=== PATIENT | male | born 1955 | race Caucasian/White ===

== ENCOUNTER 2024-01-02 14:50 | Outpatient (AMB) | payer MEDICARE, SELFPAY ==
--- NOTE | 2024-01-02 14:52 | A.OFFPC_ITS ---
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 Pt states he is feeling well. Pt states his last appt was in January 2023 with his prior doctor. Pt states he was told in January 2023 that he had an abdominal hernia. Pt states it is not painful or hasn't gotten any bigger since last year. Allergies No Known Allergies Allergy (Verified 01/02/24 15:07) Tobacco use date assessed: 01/02/24 Dental Screening Dental Screen Date: 01/02/24 Did you have a dental visit in the last 12 months?: Yes Did you have a dental problem in the last 6 months where you did not have access to dental care?: No Was dental information given to patient?: Patient has dentist HPI PERSONAL INJURY LAW SPECIALIST-discuss general health HPI Details New patient Prior PCP:? Dr Lombardo Last office visit/CPE: 02/10 Acute issue(s): Abdominal?hernia PMHx: ?Hypertension, hyperlipidemia, obstructive?sleep?apnea, vitamin- D?deficiency, h/o anxiety SurgHx:L hip replacement, b/L Carpal tunnel FHx: Mom: Heart valve replacement, COPD. Dad: Dementia. SocHx: Quit cigs in 1999, EtOH: Social 1-2 dr a week. No drugs. [facility] Medical History (Updated 01/02/24 @ 15:32 by Mat Walters) High cholesterol Hypertension Sinusitis Surgical History (Updated 01/02/24 @ 15:23 by Alee Dickens MA) History of bilateral carpal tunnel release (~12/2018) History of left hip replacement (~04/2016) Hx of colonoscopy (~03/2023) Family History (Updated 01/02/24 @ 15:20 by Alee Dickens MA) Father Hypertension High cholesterol Social History Household Members: Spouse Housing: House Patient Tobacco Use Status: Former Tobacco user e-Cigarette/Vaping Use: Never Used Current occupational status: retired Cognitive needs: No Hearing needs: Yes (left hearing aid) Vision needs: Yes Questionnaire PHQ-9 Over the last 2 weeks, how often have you been bothered by any of the following problems? 1. Little interest or pleasure in doing things: not at all 2. Feeling down, depressed, or hopeless: not at all 3. Trouble falling or staying asleep, or sleeping too much: not at all 4. Feeling tired or having little energy: not at all 5. Poor appetite or overeating: not at all 6. Feeling bad about yourself - or that you are a failure or have let yourself or your family down: not at all 7. Trouble concentrating on things, such as reading the newspaper or watching television: not at all 8. Moving or speaking so slowly that other people could have noticed. Or the opposite - being so fidgety or restless that you have been moving around a lot more than usual: not at all 9. Thoughts that you would be better off or of hurting yourself in some way: not at all Total score: 0 Depression Screening Interpretation: Negative Depression Screening Done: Yes 43111 - PHQ-9 Billing: Yes Source: Developed by Drs. Jarrell Nichols, Aleah Aleman, Laen Maharaj and colleagues, with an educational yin from [employer]. Thrive Questionnaire Date Thrive assessed: 01/02/24 I am a: Patient What is your living situation today?: I have a steady place to live Within the past 12 months, did the food you bought not last and you didn't have the money to get more?: Never true Within the past 12 months, did you worry whether your food would run out before you got money to buy more?: Never true Do you have trouble paying for medicines?: No Do you have trouble getting transportation to medical appointments?: No Do you have trouble paying your heating and electricity bill?: No Do you have trouble taking care of your child, family member or friend?: No Do you have trouble with day-to-day activities such as bathing, preparing meals, shopping, managing finances, etc.?: No Are you currently unemployed and looking for a job?: No Are you interested in more education?: No THRIVE Score: 0 AUDIT C Alcohol Use Questionnaire (AUDIT-C) 1. How often do you have a drink containing alcohol?: Monthly or less 2. How many drinks containing alcohol do you have on a typical day when you are drinking?: 3 or 4 3. How often do you have six or more drinks on one occasion?: Never Total Score: 2 ALMA DELIA-7 AMB Questionnaire ALMA DELIA-7 Date ALMA DELIA - 7 assessed: 01/02/24 Feeling nervous, anxious, or on edge: 0 = Not at all Not being able to stop or control worryin = Not at all Worrying too much about different things: 0 = Not at all Trouble relaxin = Not at all Being so restless that it is hard to sit still: 0 = Not at all Becoming easily annoyed or irritable: 0 = Not at all Feeling afraid as if something awful might happen: 0 = Not at all Total ALMA DELIA-7 score (0-4 normal; 5-9 mild; 10-14 moderate; 15-21 severe): 0 Source: Developed by Drs. Jarrell Nichols, Aleah Aleman, Lane Maharaj and colleagues, with an educational yin from [employer]. ALMA DELIA-7 Assessment Billing ALMA DELIA-7 Assessment Tool: ALMA DELIA-7 Assessment 04424 Review of Systems Const Denies chills, Denies fatigue, Denies fever(s), Denies headache(s) and Denies weakness ENT Denies dizziness and Denies headache(s) Card Denies chest pain, Denies lightheadedness, Denies dyspnea and Denies other (Palpitations) Resp Denies cough, Denies dyspnea, Denies wheezing and Denies other ( shortness of breath) Musc Denies numbness and Denies tingling Neuro Denies dizziness, Denies headache(s), Denies numbness, Denies tingling, Denies paresthesias and Denies weakness Psych Denies anxiety and Denies depression Endo Denies fatigue Aller/Immun Denies wheezing Physical exam (Primary Care) Vital Signs: Last Vital Signs Pulse 66 01/02/24 15:05 BP 136/78 01/02/24 15:05 Pulse Ox 98 01/02/24 15:05 Oxygen Delivery Method Room Air 01/02/24 15:05 BMI result Body Mass Index 37.4 Tobacco/Smoking Status: Tobacco use Status Tobacco use date assessed 01/02/24 01/02/24 15:18 Patient Tobacco Use Status Former Tobacco user 03/14/24 15:20 e-Cigarette/Vaping Use Never Used 01/02/24 15:20 PHQ-9: PHQ-9 Score PHQ-9: Total score 0 01/02/24 15:19 Depression Screening Interpretation: Negative Thrive Assessment: Date of Thrive Assessment Date Thrive assessed 01/02/24 01/02/24 15:18 Const General: no acute distress and well developed Nutritional Appearance: well nourished Orientation/consciousness: patient oriented x3 HENMT Head: Yes normocephalic and Yes atraumatic Eyes General: appearance normal, both eyes and all related structures Pupils: Equal, round and reactive pupils present EOM: EOMs intact bilaterally Resp Effort & Inspection: normal respiratory effort Auscultation: clear to auscultation bilaterally Cardio Rate: regular rate Rhythm: regular rhythm Heart sounds: S1 normal heart sound present, S2 normal heart sound present, no gallops, no murmurs and no rubs Neuro General: patient oriented x3 and gait normal Cranial nerves: Yes Equal, round and reactive pupils present Psych Affect: normal affect Assessment and Plan Assessment & Plan (1) Abdominal hernia: Code(s): K46.9 - Unspecified abdominal hernia without obstruction or gangrene Plan: Small?0.5?cm?spontaneously?reducing?umbilical?hernia?fi lled?by?impulse?during?cough/Valsalva Advised?weight?loss He?declines?a?consult?with?surgery?at?this?time He?will?let?me?know?if?worsens (2) Hypertension: Code(s): I10 - Essential (primary) hypertension Plan: Blood?pressure?is?controlled.??Goal?is?less?than?140/90 Continue?current?medication?regimen Encouraged?diet?low?in?salt/sodium Encouraged?exercise?and?weight?loss (3) AMINAH (obstructive sleep apnea): Code(s): G47.33 - Obstructive sleep apnea (adult) (pediatric) Plan: Continue?CPAP Encouraged?weight?loss (4) Low vitamin D level: Code(s): R79.89 - Other specified abnormal findings of blood chemistry Plan: Continue?vitamin-D?and?check?vitamin-D?level (5) Laboratory exam ordered as part of routine general medical examination: Code(s): Z00.00 - Encounter for general adult medical examination without abnormal findings Plan: Check?labs Orders: Orders Comprehensive [place]. Panel Fast Today Z00.00 - Encounter for general adult medical examination without abnormal findings Lipid Panel Today Z00.00 - Encounter for general adult medical examination without abnormal findings Prostate Specific Antigen Scr Today Z12.5 - Encounter for screening for malignant neoplasm of prostate UA and rflx microscopic Today Z00.00 - Encounter for general adult medical examination without abnormal findings Complete Blood Count Auto Diff Today Z00.00 - Encounter for general adult medical examination without abnormal findings Microalbumin, Random (w Creat) Today I10 - Essential (primary) hypertension TSH reflex Free T4 Today Z00.00 - Encounter for general adult medical examination without abnormal findings Vitamin D 25-OH Total Today E55.9 - Vitamin D deficiency, unspecified Medications: New amlodipine 10 mg PO DAILY 90 tabs 3RF 90 days hydrochlorothiazide 25 mg PO DAILY 90 tabs 3RF 90 days lisinopril 40 mg PO DAILY 90 tabs 3RF 90 days lovastatin 20 mg PO DAILY 90 tabs 3RF 90 days carvedilol 12.5 mg PO BID 180 tabs 3RF 90 days cholecalciferol (vitamin D3) 50 mcg PO DAILY 90 caps 3RF 90 days Coding Level of Care Code New Pt Level 3 (77547) Diagnoses Abdominal hernia K46.9 Hypertension I10 AMINAH (obstructive sleep apnea) G47.33 Low vitamin D level R79.89 Laboratory exam ordered as part of routine general medical examination Z00.00 Additional Codes ALMA DELIA-7 Assessment Billing - ALMA DELIA-7 Assessment Tool: ALMA DELIA-7 Assessment 80409 ([id number])
[2024-01-02 15:05] VITALS: BP 136/78; PULSE 66; O2SAT 98; BMI 37.4
== END 2024-01-02 15:57 | disposition home or self-care (01) ==
PROVIDERS: PCP Family Medicine; Visit Provider Family Medicine
DX: K46.9 Unspecified abdominal hernia without obstruction or gangrene (principal); I10 Essential (primary) hypertension; G47.33 Obstructive sleep apnea (adult) (pediatric); R79.89 Other specified abnormal findings of blood chemistry; Z00.00 Encounter for general adult medical examination without abnormal findings
CPT/HCPCS: 99203

== ENCOUNTER 2024-06-10 08:05 | Outpatient (REF) | payer MEDICARE, SELFPAY ==
[2024-06-10 10:34] LABS: Appearance Urine Clear; Color Urine Yellow; Glucose Urine UA Negative (Negative); Leukocyte Esterase Urine Negative (Negative); Nitrite Urine Negative (Negative); PH 5.5 (5.0-9.0); Specific Gravity - Urine 1.015 (1.005-1.025); Urine Blood Negative (Negative); Urine Ketones Negative (Negative); Urine Protein Negative (Neg-Trace)
[2024-06-10 11:29] LABS: MANUAL DIFF FLAG NO
[2024-06-10 11:35] LABS: Basophils Absolute Auto 0.1 X10*3/uL (0.0-0.2); Basophils Percent Auto 1.1 % (0-2); Eosinophils Absolute Auto 0.4 X10*3/uL (0.0-0.4); Eosinophils Percent Auto 4.8 % (0-4); Hematocrit 41.6 % (42.0-52.0); Imm Gran Abs Auto 0.03 X10*3/uL (0.00-0.03); Imm Gran Pct Auto 0.3 % (0.0-0.4); Lymphocytes Absolute Auto 2.5 X10*3/uL (1.2-4.9); Lymphocytes Percent Auto 28.3 % (20-40); Mean Corpuscular HGB Conc 33.7 g/dl (31.0-36.0); Mean Platelet Volume 9.5 fL (9.4-12.4); Monocytes Absolute Auto 0.7 X10*3/uL (0.1-1.2); Monocytes Percent Auto 7.8 % (2-11); Neutrophils Absolute Auto 5.2 x10*3/uL (2.0-8.3); Neutrophils Percent Auto 57.7 % (45-73); Platelet Count 280 X10*3/uL (160-400); Red Blood Count 4.52 X10*6/uL (4.60-5.80); Red Cell Distribution Width 12.6 % (11.0-16.0)
[2024-06-10 12:22] LABS: Creatinine Urine 111.27 mg/dL; Microalbum/Creatinine Ratio Ur 22.4 ug/mg cr (<30)
[2024-06-10 12:36] LABS: Prostate Specific Antigen Scr 0.59 ng/mL (<0.05-4.0)
[2024-06-10 12:37] LABS: Alanine Aminotransferase 32 U/L (0-40); Albumin Level 4.2 g/dL (3.5-5.0); Alkaline Phosphatase 50 U/L (39-117); Anion Gap 11 (12-20); Aspartate Amino Transferase 21 U/L (5-37); Bilirubin Total 0.2 mg/dL (0.0-1.0); Blood Urea Nitrogen 17 mg/dL (9-16); Carbon Dioxide 30 mmol/L (22-29); Chloride 105 mmol/L (96-108); Cholesterol 165 mg/dL (<200); Estimated Glomerular Filt Rate 50; Glucose Fasting 116 mg/dL (60-99); HDL Cholesterol 55 mg/dL (>40); LDL Cholesterol Calculated 95 mg/dL (<100); Potassium 4.9 mmol/L (3.3-5.1); Sodium 141 mmol/L (135-145); Triglycerides 78 mg/dL (<150)
[2024-06-10 12:58] LABS: TSH reflex Free T4 1.04 uIU/mL (0.32-4.0); Vitamin D 25-OH Total 71.8 ng/mL (>30)
== END 2024-06-10 08:06 | disposition home or self-care (01) ==
LOC: HO.HMGCLDS 08:05
PROVIDERS: PCP Family Medicine; Visit Provider Family Medicine
DX: Z00.00 Encounter for general adult medical examination without abnormal findings (principal); Z12.5 Encounter for screening for malignant neoplasm of prostate; I10 Essential (primary) hypertension; E55.9 Vitamin D deficiency, unspecified
CPT/HCPCS: 36415; 80053; 80061; 81003; 82043; 82306; 82570; 84153; 84443; 85025

== ENCOUNTER 2024-06-30 13:50 | Outpatient (AMB) | payer MEDICARE, SELFPAY ==
[2024-06-30 14:03] VITALS: BP 136/68; PULSE 65; RESP 16; O2SAT 99; BMI 36.7
--- NOTE | 2024-06-30 14:03 | A.OFFPC_ITS ---
Vital Signs 06/30/24 14:03 Height 5 ft 9 in Weight 248 lb 8 oz BMI 36.7 BP 136/68 Blood Pressure Location Rt brachial Position Sitting Respiration 16 Pulse 65 Pulse Source Pulse Oximeter Pulse Oximetry (%) 99 Oxygen Delivery Method Room Air Intake Visit Reasons: Extended exam with f/u labs and health maintenance Intake Note: Follow up. Lab results. Medical Interpreter Required: No Allergies No Known Allergies Allergy (Verified 06/30/24 14:04) Medication List - Last Reconciled 06/30/24 by Hernan Remy MD amlodipine 10 mg PO DAILY 90 days carvedilol 12.5 mg PO BID 90 days cholecalciferol (vitamin D3) 50 mcg PO DAILY 90 days CPAP (CPAP Machine/Device) As directed hydrochlorothiazide 25 mg PO DAILY 90 days lisinopril 40 mg PO DAILY 90 days lovastatin 20 mg PO DAILY 90 days Tobacco use date assessed: 01/02/24 Fall risk assessment: No Falls in past year Last assessed Fall Risk: 06/30/24 Dental Screening Dental Screen Date: 01/02/24 HPI Extended exam with f/u labs and health maintenance HPI Details 68 y/o male presents for an extended exa m with f/u labs and health maintenance. Labs drawn 06/10/24. Reviewed labs with pt. RBC, Hct mildly low. Denies any nose bleeds/blood in stool. Creatinine level 1.42. Elevated fasting glucose of 116. Triglycerides 78. TC 165. LDL 95. HDL 55. PSA 0.59. Vitamin D 71.8. He is on lovastatin 20mg daily. A1c today 06/30/24 is 5.6%. Reports hearing loss L ear. Pt reports he tries to eat a healthy diet. Walks for exercise and keeps himself active. Has complaints of intermittent knee pain. Has complaints of lump on his lip. [facility] Medical History (Updated 06/30/24 @ 14:37 by Mat Walters) High cholesterol Hypertension Sinusitis Surgical History (Updated 01/02/24 @ 15:23 by Alee Dickens CMA) History of bilateral carpal tunnel release (~12/2018) History of left hip replacement (~04/2016) Hx of colonoscopy (~03/2023) Family History (Updated 01/02/24 @ 15:20 by Alee Dickens CMA) Father Hypertension High cholesterol Social History (Updated 01/02/24 @ 15:21 by Alee Dickens ORAL COMMUNICATION INSTRUCTOR) Household Members: Spouse Housing: House Patient Tobacco Use Status: Former Tobacco user e-Cigarette/Vaping Use: Never Used Current occupational status: retired Cognitive needs: No Hearing needs: Yes (left hearing aid) Vision needs: Yes Questionnaire Thrive Questionnaire Date Thrive assessed: 01/02/24 ALMA DELIA-7 AMB Questionnaire ALMA DELIA-7 Date ALMA DELIA - 7 assessed: 01/02/24 Source: Developed by Drs. Jarrell Nichols, Aleah Aleman, Lane Maharaj and colleagues, with an educational yin from [employer]. Review of Systems Const Denies chills, Denies fatigue, Denies fever(s), Denies headache(s) and Denies weakness Eyes Denies change in vision ENT Denies dizziness, Denies headache(s), Denies hearing loss, Denies nasal congestion, Denies sinus pain, Denies sinus pressure and Denies sore throat Card Denies chest pain, Denies lightheadedness, Denies dyspnea and Denies other (palpitations) Resp Denies cough, Denies dyspnea and Denies wheezing GI Denies abdominal pain, Denies melena, Denies hematochezia, Denies change in bowel habits, Denies dyspepsia and Denies nausea Denies hematuria and Denies dysuria Musc Details: Knee pain Denies abnormal gait, Denies myalgias, Denies arthralgias, Denies numbness and Denies tingling Skin/Breast Denies rash, Denies unusual bruising and Denies wounds Neuro Denies abnormal gait, Denies dizziness, Denies headache(s), Denies memory loss, Denies numbness, Denies Sensory deficit (Neuro), Denies tingling and Denies weakness Psych Denies anxiety, Denies depression and Denies memory loss Endo Denies cold intolerance, Denies fatigue, Denies heat intolerance, Denies polydipsia and Denies polyuria Braydon/Lymph Denies easy bleeding and Denies easy bruising Aller/Immun Denies wheezing Physical exam (Primary Care) Vital Signs: Last Vital Signs Pulse 65 06/30/24 14:03 Resp 16 06/30/24 14:03 BP 136/68 06/30/24 14:03 Pulse Ox 99 06/30/24 14:03 Oxygen Delivery Method Room Air 06/30/24 14:03 BMI result Body Mass Index 36.7 Tobacco/Smoking Status: Tobacco use Status Tobacco use date assessed 01/02/24 06/30/24 14:04 Patient Tobacco Use Status Former Tobacco user 06/30/24 14:04 e-Cigarette/Vaping Use Never Used 06/30/24 14:04 Thrive Assessment: Date of Thrive Assessment Date Thrive assessed 01/02/24 06/30/24 14:04 Const General: no acute distress, well developed, alert and awake Nutritional Appearance: obese Orientation/consciousness: patient oriented x3 HENMT Head: Yes normocephalic and Yes atraumatic Ears: hearing grossly normal bilaterally and TM's normal bilaterally General nose exam: Normal external nose present and Normal nares present Mouth: Normal oral and palatal mucosa present and moist mucous membranes Teeth and gingiva: dentition normal Throat: Yes posterior oropharynx normal Eyes General: appearance normal, both eyes and all related structures Pupils: Equal, round and reactive pupils present and Pupil accommodation reflex normal EOM: EOMs intact bilaterally Neck Neck: Yes normal visual inspection, Yes no lymphadenopathy and Yes trachea midline Thyroid: Thyroid normal Carotids: no bruits Lymphatic: no lymphadenopathy noted Chest Chest palpation & inspection: normal inspection of the chest Resp Effort & Inspection: normal respiratory effort Auscultation: clear to auscultation bilaterally Cardio Rate: regular rate Rhythm: regular rhythm Heart sounds: S1 normal heart sound present, S2 normal heart sound present, no gallops, no murmurs and no rubs Bruits: no abdominal aortic bruits and no carotid bruits GI Palpation (GI): No Abdominal aortic bruit present, Soft to palpation, nontender, No hepatosplenomegaly present and No Rebound tenderness present Auscultation: normal bowel sounds General: Yes no CVA tenderness Back/Spine/Pelvis Back: no CVA tenderness Cervical Spine: cervical ROM normal and No Cervical spine tenderness Thoracic/Lumbar Spine: thoraco-lumbar ROM normal, No pain with thoraco-lumbar ROM, No thoracic spinal tenderness and No lumbar spinal tenderness Skin Lesions: no lesions Rashes: no rashes Trauma: no lacerations or abrasions Wounds: no wounds Nails: normal Neuro General: patient oriented x3 Cranial nerves: Yes Equal, round and reactive pupils present Cognition (Neuro): normal cognition Gait exam (Neuro): Normal gait present Motor exam (neuro): 5/5 motor strength present throughout Sensory Exam: No Sensory deficit (Neuro) Deep tendon reflexes (DTR's): Right patellar reflex intensity grade: 2+ and Left patellar reflex intensity grade: 2+ Extrem General: Yes normal to inspection and No edema Psych Appearance: grossly normal Affect: normal affect Attitude: cooperative Thought process: Normal thought process present Results AMB Hemoglobin A1c AMB Hemoglobin A1c 5.6 % Last Edit by Simin Yoder CMA on 06/30/24 14:32 Assessment and Plan Assessment & Plan (1) High cholesterol: Code(s): E78.00 - Pure hypercholesterolemia, unspecified Plan: Lipids?are?well?controlled?on?pravastatin Continue?current?medication (2) Hypertension: Code(s): I10 - Essential (primary) hypertension Plan: Blood?pressure?is?controlled.??Goal?is?less?than?140/90 Continue?current?medications Creatinine?is?mildly?elevated - will?recheck?this?with?next?blood?draw .??If?worsening,?may?need?to?adjust?his?lisinopril?or?hydrochlorothiazide. (3) Mild anemia: Code(s): D64.9 - Anemia, unspecified Plan: Mild/borderline?anemia No?bleeding Will?recheck?with?next?blood?draw (4) Hearing loss: Code(s): H91.90 - Unspecified hearing loss, unspecified ear Plan: Stable Continue?hearing?aid?at?left?ear (5) Knee pain: Code(s): M25.569 - Pain in unspecified knee Plan: Pain?at?right?knee?and?likely?some?arthritis/tendinitis Check?x-ray We?can?follow-up?with?his?next?visit. If?not?improving?or?worsens,?we?discussed?physical?therapy?and?he?could?begin?th is. May?also?need?a?referral?to?Ortho (6) Elevated serum creatinine: Code(s): R79.89 - Other specified abnormal findings of blood chemistry Plan: Mildly?elevated?creatinine?level He ?is?on?lisinopril?and?hydrochlorothiazide?which?may?be?a?partial?underlying?caus e.??Also?has?elevated?fasting?blood?sugar. Encouraged?good?hydration Will?follow?and?if?this?is?worsening,?would?conside r?easing?up?on?hydrochlorothiazide. Blood?pressure?is?controlled?though?at?top?of?controlled?range?so?would?need?to? use?another?medication?in?place?of?hydrochlorothiazide. (7) Elevated fasting glucose: Code(s): R73.01 - Impaired fasting glucose Plan: A1c?5.6%?which?is?top?of?normal?range? and?he?does?have?elevated?fasting?blood?sugar We?discussed?insulin?resistance?and?I?advised?a?diet?lower?in?sugars?and?starche s?as?well?as?weight?loss Will?follow?and?discuss?at?next?visit (8) Screening for colon cancer: Code(s): Z12.11 - Encounter for screening for malignant neoplasm of colon Plan: Followed?by??Andrew. Patient?says?he?had?a?colonoscopy?about?2?years?ago?and?was?told?to?follow- up?in?about?5?years. Will?request?report (9) Screening for prostate cancer: Code(s): Z12.5 - Encounter for screening for malignant neoplasm of prostate Plan: PSA?is?within?normal?range Continue?annual?screening (10) Adult general medical exam: Code(s): Z00.00 - Encounter for general adult medical examination without abnormal findings Plan: 68-year-old?male?presents?for?an?extended?exam Encouraged?healthy?diet?with?active?lifestyle?and?plenty?of?exercise Orders: Orders XR knee RT 3V Today M25.569 - Pain in unspecified knee Comprehensive [place]. Panel Fast Today R79.89 - Other specified abnormal findings of blood chemistry, Z00.00 - Encounter for general adult medical examination without abnormal findings Complete Blood Count Auto Diff Today D64.9 - Anemia, unspecified, Z00.00 - Encounter for general adult medical examination without abnormal findings AMB Hemoglobin A1c Today R73.01 - Impaired fasting glucose Hemoglobin A1c Today R73.01 - Impaired fasting glucose Coding Level of Care Code Est Pt Level 4 (74669) Diagnoses High cholesterol E78.00 Hypertension I10 Mild anemia D64.9 Hearing loss H91.90 Knee pain M25.569 Elevated serum creatinine R79.89 Elevated fasting glucose R73.01 Screening for colon cancer Z12.11 Screening for prostate cancer Z12.5 Adult general medical exam Z00.00
== END 2024-06-30 14:52 | disposition home or self-care (01) ==
PROVIDERS: PCP Family Medicine; Visit Provider Family Medicine
DX: E78.00 Pure hypercholesterolemia, unspecified (principal); I10 Essential (primary) hypertension; D64.9 Anemia, unspecified; H91.90 Unspecified hearing loss, unspecified ear; M25.569 Pain in unspecified knee; R79.89 Other specified abnormal findings of blood chemistry; R73.01 Impaired fasting glucose; Z12.11 Encounter for screening for malignant neoplasm of colon; Z12.5 Encounter for screening for malignant neoplasm of prostate; Z00.00 Encounter for general adult medical examination without abnormal findings
CPT/HCPCS: 83036; 99214

== ENCOUNTER 2024-09-09 14:13 | Outpatient (REF) | payer MEDICARE, SELFPAY | END 2024-09-09 14:14 | disposition home or self-care (01) | LOC: HO.HMGCX 14:13 | PROVIDERS: PCP Family Medicine; Visit Provider Family Medicine | DX: M25.561 Pain in right knee (principal) | CPT/HCPCS: 73562 ==

== ENCOUNTER 2024-09-22 08:02 | Outpatient (REF) | payer MEDICARE, SELFPAY ==
[2024-09-22 11:27] LABS: MANUAL DIFF FLAG NO
[2024-09-22 11:32] LABS: Basophils Percent Auto 0.4 % (0-2); Eosinophils Absolute Auto 0.5 X10*3/uL (0.0-0.4); Eosinophils Percent Auto 5.8 % (0-4); Hematocrit 44.2 % (42.0-52.0); Hemoglobin 14.7 g/dl (14.0-18.0); Imm Gran Abs Auto 0.02 X10*3/uL (0.00-0.03); Imm Gran Pct Auto 0.2 % (0.0-0.4); Lymphocytes Absolute Auto 3.1 X10*3/uL (1.2-4.9); Lymphocytes Percent Auto 33.8 % (20-40); Mean Corpuscular HGB Conc 33.3 g/dl (31.0-36.0); Mean Corpuscular Hemoglobin 30.7 pg (27.0-33.0); Mean Corpuscular Volume 92.3 fL (80.0-98.0); Mean Platelet Volume 9.6 fL (9.4-12.4); Monocytes Absolute Auto 0.8 X10*3/uL (0.1-1.2); Monocytes Percent Auto 8.6 % (2-11); Neutrophils Absolute Auto 4.6 x10*3/uL (2.0-8.3); Neutrophils Percent Auto 51.2 % (45-73); Platelet Count 286 X10*3/uL (160-400); Red Blood Count 4.79 X10*6/uL (4.60-5.80); Red Cell Distribution Width 12.5 % (11.0-16.0)
[2024-09-22 11:46] LABS: Alanine Aminotransferase 30 U/L (0-40); Albumin Level 4.2 g/dL (3.5-5.0); Alkaline Phosphatase 48 U/L (39-117); Anion Gap 11 (12-20); Aspartate Amino Transferase 28 U/L (5-37); Bilirubin Total 0.4 mg/dL (0.0-1.0); Blood Urea Nitrogen 19 mg/dL (9-16); Calcium 9.7 mg/dL (8.4-10.2); Carbon Dioxide 29 mmol/L (22-29); Chloride 105 mmol/L (96-108); Estimated Glomerular Filt Rate 43; Glucose Fasting 120 mg/dL (60-99); Potassium 4.1 mmol/L (3.3-5.1); Sodium 141 mmol/L (135-145); Total Protein 6.9 g/dL (6.5-8.0)
[2024-09-22 12:04] LABS: Estimated Average Glucose 120 mg/dL; Hemoglobin A1C 161.2713 umol/L; Hemoglobin A1c % 5.8 % (<6.0); Total Hemoglobin (HGBA1C) 4005.7591 umol/L
== END 2024-09-22 08:03 | disposition home or self-care (01) ==
LOC: HO.HMGCLDS 08:02
PROVIDERS: PCP Family Medicine; Visit Provider Family Medicine
DX: Z00.00 Encounter for general adult medical examination without abnormal findings (principal); R73.01 Impaired fasting glucose; R79.89 Other specified abnormal findings of blood chemistry; D64.9 Anemia, unspecified
CPT/HCPCS: 36415; 80053; 83036; 85025

== ENCOUNTER 2024-09-29 08:40 | Outpatient (AMB) | payer MEDICARE, SELFPAY ==
--- NOTE | 2024-09-29 08:47 | A.OFFPC_ITS ---
Vital Signs 09/29/24 08:52 Height 5 ft 9 in Weight 243 lb 2 oz BMI 35.9 BP 150/60 H Blood Pressure Location Rt brachial Position Sitting Respiration 16 Pulse 61 Pulse Source Pulse Oximeter Temp 98.3 F Temp Source Oral Pulse Oximetry (%) 97 Oxygen Delivery Method Room Air Intake Visit Reasons: f/u elevated fasting glucose, labs Intake Note: f/u DM and lab review Allergies No Known Allergies Allergy (Verified 09/29/24 08:51) Tobacco use date assessed: 01/02/24 Dental Screening Dental Screen Date: 01/02/24 HPI f/u elevated fasting glucose, labs HPI Details 68 y/o male presents to f/u elevated fas ting blood sugars, creatinine levels, mild/borderline anemia. Also f/u hypertension. BP today 150/60, 61p. He is on lisinopril 40mg, HCTZ 25mg daily, amlodipine 10mg daily. He does not check his blood pressures at home. Labs drawn 09/22/24. Reviewed labs with pt. A1c 5.8%. Fasting glucose of 120. Borderline anemia resolved. Creatinine level worsened from 1.42 to 1.61. [facility] Medical History (Updated 09/29/24 @ 09:06 by Mat Walters) High cholesterol Hypertension Sinusitis Surgical History (Updated 01/02/24 @ 15:23 by Alee Dickens CMA) History of bilateral carpal tunnel release (~12/2018) History of left hip replacement (~04/2016) Hx of colonoscopy (~03/2023) Family History (Updated 01/02/24 @ 15:20 by Alee Dickens CMA) Father Hypertension High cholesterol Social History (Updated 01/02/24 @ 15:21 by Alee Dickens CMA) Household Members: Spouse Housing: House Patient Tobacco Use Status: Former Tobacco user e-Cigarette/Vaping Use: Never Used Current occupational status: retired Cognitive needs: No Hearing needs: Yes (left hearing aid) Vision needs: Yes Questionnaire PHQ-9 Over the last 2 weeks, how often have you been bothered by any of the following problems? 1. Little interest or pleasure in doing things: not at all 2. Feeling down, depressed, or hopeless: not at all 3. Trouble falling or staying asleep, or sleeping too much: not at all 4. Feeling tired or having little energy: not at all 5. Poor appetite or overeating: not at all 6. Feeling bad about yourself - or that you are a failure or have let yourself or your family down: not at all 7. Trouble concentrating on things, such as reading the newspaper or watching television: not at all 8. Moving or speaking so slowly that other people could have noticed. Or the opposite - being so fidgety or restless that you have been moving around a lot more than usual: not at all 9. Thoughts that you would be better off or of hurting yourself in some way: not at all Total score: 0 Source: Developed by Drs. Jarrell Nichols, Aleah Aleman, Lane Maharaj and colleagues, with an educational yin from [employer]. Thrive Questionnaire Date Thrive assessed: 01/02/24 I am a: Patient What is your living situation today?: I have a steady place to live Within the past 12 months, did the food you bought not last and you didn't have the money to get more?: Never true Within the past 12 months, did you worry whether your food would run out before you got money to buy more?: Never true Do you have trouble paying for medicines?: No Do you have trouble getting transportation to medical appointments?: No Do you have trouble paying your heating and electricity bill?: No Do you have trouble taking care of your child, family member or friend?: No Do you have trouble with day-to-day activities such as bathing, preparing meals, shopping, managing finances, etc.?: No Are you currently unemployed and looking for a job?: No Are you interested in more education?: No Please select the resources that you would like help with: None Currently or been in a relationship where the following occur: No concerns reported THRIVE Score: 0 AUDIT C Alcohol Use Questionnaire (AUDIT-C) 1. How often do you have a drink containing alcohol?: Monthly or less 2. How many drinks containing alcohol do you have on a typical day when you are drinking?: 1 or 2 3. How often do you have six or more drinks on one occasion?: Never Total Score: 1 ALMA DELIA-7 AMB Questionnaire ALMA DELIA-7 Date ALMA DELIA - 7 assessed: 01/02/24 Feeling nervous, anxious, or on edge: 0 = Not at all Not being able to stop or control worryin = Not at all Worrying too much about different things: 0 = Not at all Trouble relaxin = Not at all Being so restless that it is hard to sit still: 0 = Not at all Becoming easily annoyed or irritable: 0 = Not at all Feeling afraid as if something awful might happen: 0 = Not at all Total ALMA DELIA-7 score (0-4 normal; 5-9 mild; 10-14 moderate; 15-21 severe): 0 Source: Developed by Drs. Jarrell Nichols, Aleah Aleman, Lane Maharaj and colleagues, with an educational yin from [employer]. Review of Systems Const Denies chills, Denies fatigue, Denies fever(s), Denies headache(s) and Denies weakness ENT Denies dizziness and Denies headache(s) Card Denies dyspnea Resp Denies cough, Denies dyspnea, Denies wheezing and Denies other (shortness of breath) Musc Denies numbness and Denies tingling Neuro Denies dizziness, Denies headache(s), Denies numbness, Denies tingling and Denies weakness Psych Denies anxiety and Denies depression Endo Denies fatigue Aller/Immun Denies wheezing Physical exam (Primary Care) Vital Signs: Last Vital Signs Temp 98.3 F 09/29/24 08:52 Pulse 61 09/29/24 08:52 Resp 16 09/29/24 08:52 BP 150/60 H 09/29/24 08:52 Pulse Ox 97 09/29/24 08:52 Oxygen Delivery Method Room Air 09/29/24 08:52 BMI result Body Mass Index 35.9 Tobacco/Smoking Status: Tobacco use Status Tobacco use date assessed 01/02/24 09/29/24 08:47 Patient Tobacco Use Status Former Tobacco user 09/29/24 08:47 e-Cigarette/Vaping Use Never Used 09/29/24 08:47 PHQ-9: PHQ-9 Score PHQ-9: Total score 0 09/29/24 09:08 Thrive Assessment: Date of Thrive Assessment Date Thrive assessed 01/02/24 09/29/24 08:47 Currently or been in a relationship where the following occur: No concerns reported Const General: well developed; No acute distress Nutritional Appearance: well nourished Orientation/consciousness: patient oriented x3 [facility] Head: Yes normocephalic and Yes atraumatic Eyes General: appearance normal, both eyes and all related structures Pupils: Equal, round and reactive pupils present EOM: EOMs intact bilaterally Resp Effort & Inspection: normal respiratory effort Auscultation: clear to auscultation bilaterally Cardio Rate: regular rate Rhythm: regular rhythm Heart sounds: S1 normal heart sound present, S2 normal heart sound present, no gallops, no murmurs and no rubs Neuro General: patient oriented x3 and gait normal Cranial nerves: Yes Equal, round and reactive pupils present Psych Affect: normal affect Coding Level of Care Code Est Pt Level 4 (00772) Diagnoses Hypertension I10 Elevated serum creatinine R79.89 Mild anemia D64.9 Pre-diabetes R73.03 Knee pain M25.569 Assessment & Plan Assessment & Plan (1) Hypertension: Code(s): I10 - Essential (primary) hypertension Category: Medical Plan: Blood?pressure?is?too?high He?is?on?4?medications?for?hypertension. However,?creatinine?has?been?rising. Will?continue?carvedilol,?amlodipine?and?lisinopril?as?prescribed?for?now.??Will ?decrease?hydrochlorothiazide?from?25?mg?to?12.5?mg?daily?and Will?add?hydralazine?25?mg?t.i.d. Will?follow- up?in?2?weeks?and?adjust?his?medication.??Will?try?to?discontinue?hydrochlorothi azide?entirely?and?may?consider?decreasing?lisinopril?as?well. If?creatinine?level?continued?to?rise?will?refer ?to?Nephrology.??Patient?says?he?was?worked?up?by?Nephrology?about?a?year?ago?an d?at?that?time,?he?says?they?found?no?issues. (2) Elevated serum creatinine: Code(s): R79.89 - Other specified abnormal findings of blood chemistry Category: Medical Plan: As?above,?patient?was?worked?up?by?Nephrology?about?a?year?ago. Patient?says?no?underlying?cause?were?some?renal?insufficiency?was?found?and?he? was?told?lose?weight. I?suspect?his?hypertension?an d?elevated?blood?sugars?as?well?as,?possibly?lipids?may?be?contributing. However,?patient?is?not?tolerating?lisinopril?and?hydrochlorothiazide?at?the?dos es?he?is?on. Decreasing?hydrochlorothiazide?with?goal?eliminating?it?and?using?hydralazine. Encouraged?lifestyle?changes If?it?continues?to?worsen,?will?refer?back?to?Nephrology (3) Mild anemia: Code(s): D64.9 - Anemia, unspecified Category: Medical Plan: Resolved (4) Pre-diabetes: Code(s): R73.03 - Prediabetes Category: Medical Plan: Blood?sugar?is?elevated?and?A1c?has?risen?to?5.8%;?pre?diabetes Encouraged?a?diet?lower?in?sugars?and?starches.??Encouraged?weight?loss.??Encour aged?exercise Patient?is?having?difficulty?with?exercise?due?to?knee?pain-see?below (5) Knee pain: Code(s): M25.569 - Pain in unspecified knee Category: Medical Plan: Patient?had?an?x- ray?on?August??due?to?right?knee?pain.??This?has?not?been?read?yet. Asking?the?office?to?get?reading?expedited?and?we?will?follow- up?at?upcoming?visit. Medications: New hydralazine 25 mg PO TID 30 days 90 tabs 2RF Changed From hydrochlorothiazide 25 mg PO DAILY 90 days 90 tabs 3RF To hydrochlorothiazide 12.5 mg (1/2 x 25 mg) PO DAILY 90 days 45 tabs 3RF
[2024-09-29 08:52] VITALS: BP 150/60; PULSE 61; RESP 16; TEMP 36.8; O2SAT 97; BMI 35.9
--- OUTSIDE RECORDS SUMMARY | 2024-09-30 19:01 | XMS_ITS | Continuity of Care Document ---
Author Name [facility] Organization [facility] Care Team Providers Care Knife Machine Operator Name Role Phone [facility] Unavailable Unavailable Problems Combined list of problems from Department of Defense and Veterans [facility] facilities. It does not include entries that were removed or entered in error. 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 Immunization Series Date Given Administered By Site Reaction Lot Number CVX Code Drug 3Rd Grade Teacher Status Comments Source COVID-19 (Bit9), MRNA, LNP-S, PF, 30 MCG/0.3 ML DOSE 2 2020 208 complet ed PFR; [id number]; 1 [facility] [place] [facility] COVID-19 (Bit9), MRNA, LNP-S, PF, 30 MCG/0.3 ML DOSE 1 2020 208 complet ed PFR; [id number]; 1 [facility] Intern [place] [facility] Encounters Combined list of: 1) Encounters from Department of Veterans Affairs facilities going back up to thelast 18 months. 2) Encounters from the Department of Defense facilities going back up to 280 months. Location Location Details Encounter Type Encounter Number Reason For Visit Attending Provider ADM Date DC Date Status Disposition Source [facility] HEARING AID FITTING/CH ECKING [id number] Diagnos is: ICD-10- CM H90.A32 Mix cndct/s nrl hear loss,un i,l ear w rstrcd hear cntra side
SENIOR,AGUSTINA OLE L 08/13 [facility] [place] [facility] [place] [facility] CONFORMITY EVALUATION [id number] Diagnos is: ICD-10- CM Z46.1 Encount er for fitting and adjustm ent of hearing aid<br/ > AGUSTINA DAO OLE L 09/11 [facility] [place] [facility]
--- OUTSIDE RECORDS SUMMARY | 2024-09-30 19:01 | XMS_ITS | Encounter Summary ---
Author Name [facility] Organization [facility] ([place]) Address [address] [place] [id number] Support Name Relationship Address Phone DEXTER ALBARRAN Next of Kin [address] [place] [phone] Insurance Providers: All historical and current Section Date Range: From patient's date of to the date document was created. This section includes the names of all active insurance providers for the patient. Insurance Provider Type of Coverage Plan Name Start of Policy Coverage End of Policy Coverage Group Number Member ID Insurance Provider's Telephone Number Policy Baird's Name Patient's Relationship to Policy Baird [place] SUPPLEMEN SERGIO MIIA PATHF [place] REG Nov 21, 2022 [id number] DEION NGCLINTO N PATIENT [facility] ORGANIZ MIIA PATHF MIHAI REG Apr 20, 2018 [id number] DEION NGCLINTO N PATIENT [facility] CE ORGANIZ [facility] SHARE ACTIV E Oct 21, 2007 [id number] DEION NGCLINTO N PATIENT [employer] ([id number]) PRESCRIPT ION L4TA* Aug 21, 2008 [id number] DEION NGCLINTO N PATIENT [employer] ([id number]) PRESCRIPT ION L4TA* Aug 21, 2008 [id number] [phone] DEION NGCLINTO N PATIENT MEDICARE (WNR) MEDICARE (M) PART A Nov 21, 2022 PART A [id number] MARYSE ALBARRAN PATIENT MEDICARE (WNR) MEDICARE (M) PART B Nov 21, 2022 PART B [id number] VINCENT ALBARRAN JRRENETTA Joyce PATIENT Selected Encounter This section includes the information on record at [place] for the Encounter. Date/Time Encounter Type Encounter Description Reason Provider Source Sep 11, 2024 09:00 AM CONFORMITY EVALUATION AUDIOLOGY ICD-10-CM Z46.1 Encounter for fitting and adjustment of hearing aid MELANI DAO [place] Encounter Template Text not used by [place] Assessments - Encounter Diagnoses This section includes the primary and secondary diagnoses documented for the Encounter. 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 Date/Time Encounter Note(s) Provider Source Sep 11, 2024 07:34 AM AUDIOLOGY E & M NO TE: [facility] TITLE: AUDIOLOGY CLINIC STANDARD TITLE: AUDIOLOGY E & M NOTE DATE OF NOTE: SEP 11, 2024@07:34 ENTRY DATE: SEP 11, 2024@07:34:13 AUTHOR: MELANI DAO EXP COSIGNER: URGENCY: STATUS: COMPLETED AUDIOLOGY CLINIC Has ADDENDA Dx CODE: Z46.1- Encounter for Fitting/Programming Hearing Aid(s); H90.A32- Mixed HL, left ear; H90.A21- SNHL, right ear; H93.13- Tinnitus, bilateral APPOINTMENT TYPE: Hearing Aid Fitting SUBJECTIVE (S): The patient was seen today for hearing aid fitting and issuance, unaccompanied. He had previously been evaluated and found to exhibit significant hearing loss for which amplification was recommended. He is a previous user of hearing aids, and was fit on 04/28/21 with a left only GURU BRIGGS [employer]GE AI ITC R. How does the patient best learn? Verbal instruction, demonstration Does the patient have any cultural and sabianist beliefs, emotional barriers, physical or cognitive limitations, and communication barriers which may impact his ability to learn? No Desire and motivation to learn? Good OBJECTIVE (O): Physical fit of hearing aids was good. Patient verified comfort. Verification of an appropriate acoustic response was obtained using Real Ear measurements (speech mapping) and NAL-NL2 targets. The patient reported good subjective benefit as well. Feedback credit union manager was run. Hearing aids were found to be meeting targets adequately and MPO was not exceeding estimated UCL. Settings stored in [facility]. ASSESSMENT (A): The following devices were issued: Make: GN RESOUND Model: NEXIA 60 MICRO NO-R Right Serial Number: NONE Left Serial Number: [id number] Battery size: Rechargeable Warranty ends: 09/13/27 Trial Period ends: 02/10/25 Domes/wax guards: GN Wax Filter, Large power dome Voucher Examiner size/power: Size 2 HP Program(s): Automatic Button(s): Short press= Volume Up Long press= Volume Down Extra-long press= Power on/off Fitting Formula: NAL-NL2 Remote Programming: HAs are capable Bluetooth: [place] will pair on own Counseling was completed throughout todays appointment using a standardized curriculum that includes but is not limited to; realistic expectations with amplification in adverse listening environments, acclimatization to own voice and environmental sounds (following real-ear measurements), the importance of consistent use of amplification, proper insertion/removal, care and maintenance (including wax guards/domes if applicable), signal and alerts of devices, and charging/batteries. The was provided the opportunity to practice in office and reports confidence/understanding in all items reviewed. Time Spent= 20 minutes The patient was informed of and signed/agreed to [place] policy on hearing aid issuance: Yes Users are responsible for the maintenance and security of their devices. Determination of need to replace a hearing aid is made by the [place] dental appliance mechanic. Hearing aids will not be replaced in cases of neglect, abuse, or excessive loss. Items issued are for personal use only. Prognosis for successful hearing aid use is good. PLAN (P): 1. Follow-up for programming/adjustments as needed. 2. The International Outcome Inventory-Hearing Aids (IOI-FAN) will be mailed to the in four weeks. He was asked to complete and mail back to clinic after completion. Patient Education Education provided on the following topics: Hearing aid use, care, maintenance Education provided to: P Response to Education: WICHO KELLY, PI Dai Patient P Family F Significant Other SO Verbalizes Understanding VU Returns Demonstration RD Performs Independently PI Lacks Comprehension LC Refused Education RE Not Applicable NA /NOLAN Sheriff, [facility]-A STAFF TRAINING PROGRAM MANAGER Signed: 09/11/2024 09:30 09/11/2024 ADDENDUM STATUS: COMPLETED [place]'s 2020 Guru aid was sent for repair today due to excessive battery drain. The repaired device will be mailed back to his address on file via [facility]. /NOLAN Sheriff, CCC-A STAFF TRAINING PROGRAM MANAGER Signed: 09/11/2024 09:31 MELANI DAO [place] [facility]
== END 2024-09-29 09:20 | disposition home or self-care (01) ==
PROVIDERS: PCP Family Medicine; Visit Provider Family Medicine
DX: I10 Essential (primary) hypertension (principal); R79.89 Other specified abnormal findings of blood chemistry; D64.9 Anemia, unspecified; R73.03 Prediabetes; M25.569 Pain in unspecified knee

== ENCOUNTER → 2024-09-29 08:40 | Outpatient (BNVA) | payer MEDICARE, SELFPAY | PROVIDERS: PCP Family Medicine; Visit Provider Family Medicine | DX: I10 Essential (primary) hypertension (principal); R79.89 Other specified abnormal findings of blood chemistry; D64.9 Anemia, unspecified; R73.03 Prediabetes | CPT/HCPCS: 96127; 99212 ==

== ENCOUNTER 2024-10-15 09:30 | Outpatient (AMB) | payer MEDICARE, SELFPAY ==
--- OUTSIDE RECORDS SUMMARY | 2024-10-15 09:32 | XMS_ITS ---
Author Name [facility] Organization [facility] Address [address] [place] [id number] Support Name Relationship Address Phone DEXTER ALBARRAN Next of Kin [address] [place] [address] [phone] Insurance Providers: All historical and current Section [...] MIIA PATHF MIHAI REG Nov 21, 2022 [id number] [phone] DEION NGCLINTO N PATIENT [facility] ORGANIZ MIIA PATHF MIHAI REG Apr 20, 2018 [id number] VINCENT ALBARRAN JRTO N PATIENT [facility] CE ORGANIZ [facility] SHARE ACTIV E Oct 21, 2007 [id number] [phone] MADISON ALBARRAN JR N PATIENT [facility] ([id number]) PRESCRIPT ION L4TA* Aug 21, 2008 L4TA [id number] [phone] DEION NGCLINRENETTA N PATIENT [facility] ([id number]) PRESCRIPT ION L4TA* Aug 21, 2008 L4TA [id number] [phone] DEION NGCLINRENETTA N PATIENT MEDICARE (WNR) MEDICARE (M) PART A Nov 21, 2022 PART A [id number] MARYSE ALBARRANN PATIENT MEDICARE (WNR) MEDICARE (M) PART B Nov 21, 2022 PART B [id number] VINCENT ALBARRAN JRRENETTA Joyce PATIENT Selected Encounter This section includes the information on record at [place] for the Encounter. Date/Time Encounter Type Encounter Description Reason Provider Source Aug 13, 2024 09:00 AM HEARING AID FITTING/CHECKING AUDIOLOGY ICD-10-CM H90.A32 Mix cndct/snrl hear loss,uni,l ear w rstrcd hear cntra side SENIOR,MELANI L E Encounter Template Text not used by [place] Assessments - Encounter Diagnoses This section includes the primary and secondary diagnoses documented for the Encounter. Date/Time Primary/Secondary Diagnosis Diagnosis Name Provider Source Aug 13, 2024 05:19 PM PRIMARY Mix cndct/snrl hear loss,uni,l ear w rstrcd hear cntra side [facility]ENIOR[facility]ELANI L [facility] Aug 13, 2024 05:19 PM SECONDARY Snsrnrl hear loss, uni, r ear, with rstrcd hear cntra side SENIOR,MELANI L [facility] [place] [facility] Aug 13, 2024 05:19 PM SECONDARY Tinnitus, bilateral SENIOR,MELANI L [facility] Plan of Treatment: Future Appointments (+ 6 months) and Future Tests (+/- 45 days) The Plan of Treatment section includes future care activities for the patient from all [place] treatmentfacilities. This section includes future appointments and future orders which are active, pending or scheduled. Future Appointments This section includes appointments that were scheduled to occur 6 months from the date of the Encounter, up to a maximum of 20 appointments. The data comes from all [place] treatment facilities. Appointment Date/Time Appointment Type Appointme nt Facility Name Sep 11, 2024 09:00 AM AMBULATORY - REHAB MEDICIN E [facility] Encounter Notes: All associated encounter notes This section contains the clinical notes associated to the Encounter. Date/Time Encounter Note(s) Provider Source Aug 13, 2024 07:28 AM AUDIOLOGY E & M NO TE: LOCAL TITLE: AUDIOLOGY CLINIC STANDARD TITLE: AUDIOLOGY E & M NOTE DATE OF NOTE: AUG 13, 2024@07:28 ENTRY DATE: AUG 13, 2024@07:28:17 AUTHOR: MELANI DAO COSIGNER: URGENCY: STATUS: COMPLETED AUDIOLOGY CLINIC Has ADDENDA Dx CODE: H90.A32- Mixed HL, left ear; H90.A21- SNHL, right ear; H93.13- Tinnitus, bilateral APPOINTMENT TYPE: Hearing Re-Evaluation and Hearing Aid Selection BACKGROUND/HISTORY: was seen today for a hearing re-evaluation and hearing aid selection appointment, unaccompanied. He was fit on 04/28/21 with a left only KELLIE [place] [employer] AI ITC R and reports a decline in benefit from this device. He is eligible for new hearing aids through the [facility] due to the age of the current device. His last hearing evaluation was on 09/19/22 and he believes his hearing has declined somewhat since then. 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 He received medical clearance for amplification for a left hearing aid from Dr. Mary Bae (aka Dr. Mary Landa, now of the [place]), [facility] on 09/20/16. [place] reports bilateral tinnitus which is more pronounced in the left ear and he notes that it seems to be getting worse in the left ear. He denies vertigo. Medical history includes: Problem List - Active - NONE FOUND ASSESSMENT: Results of today's testing are as follows: Otoscopy was WNL bilaterally. Tympanometry revealed normal middle-ear function (Type A) in the right ear and reduced middle-ear compliance (Type As) in the left ear. Pure tone audiometric testing under headphones in the right ear revealed normal hearing from 250-4000 Hz, sloping to a moderate hearing loss from 5715-3064 Hz. Testing in the left ear revealed a moderate to severe mixed heraing loss from 250-8000 Hz. SRT WORD RECOGNITION (Recorded [place] CNC 1/2 Word List) Right 10dBHL 100% @ 65dBHL/35dBm Left 45dBHL 100% @ 80dBHL/50dBm No significant changes were found when compared to the 2021 audiological evaluation. HEARING AID CHECK: The left aid was cleaned and checked. Microphone covers and wax guard were replaced. A firmware update was performed and the hearing aid was reprogrammed to today's audiogram. HEARING AID SELECTION: Different hearing aid options were discussed. [place] notes that he preferred his older Resound NO aid over the in-the-ear style. He denies having a pacemaker and would like to continue with a rechargeable devices. He is interested in savana use with his Android phone. was advised that a custom earmold is recommended, however due to comfort concerns he would first like to try a dome. A left only GN RESOUND NEXIA 60 MICRO NO-R was selected and ordered in [facility] with a size 2 HP leather stitcher and power dome. EDUCATION/COUNSELING: The patient was counseled re: today's hearing test results. He demonstrated satisfactory understanding of the education and plan, and was given the opportunity to ask questions throughout today's visit. PLAN: 1. RTC on 09/11/24 at 9:00AM in clinic E for 60 minute hearing aid fitting appointment. 2. Hearing re-evaluation in 3-5 years, or sooner if change in hearing occurs. Patient Education Education provided on the following topics: Hearing test results Education provided to: P Response to Education: VU Dai Patient P Family F Significant Other SO Verbalizes Understanding VU Returns Demonstration RD Performs Independently PI Lacks Comprehension LC Refused Education RE Not Applicable NA Suicide Screen: C-SSRS Screening [place]-Suicide Severity Rating Scale (C-SSRS Screener) 1. Over the past month, have you wished you were or wished you could go to sleep and not wake up? No 2. Over the past month, have you had any actual thoughts of killing yourself? No 3. Over the past month, have you been thinking about how you might do this? Response not required due to responses to other questions. 4. Over the past month, have you had these thoughts and had some intention of acting on them? Response not required due to responses to other questions. 5. Over the past month, have you started to work out or worked out the details of how to kill yourself? Response not required due to responses to other questions. 6. If yes, at any time in the past month did you intend to carry out this plan? Response not required due to responses to other questions. 7. In your lifetime, have you ever done anything, started to do anything, or prepared to do anything to end your life (for example, collected pills, obtained a gun, gave away valuables, went to the roof but didn't jump)? No 8. If YES, was this within the past 3 months? Response not required due to responses to other questions. /NOLAN Sheriff, [facility] STAFF CASINO OPERATIONS SUPERVISOR Signed: 08/13/2024 17:20 Receipt Acknowledged By: 08/14/2024 07:44 /miroslava/ CHASIDY TENORIO LEAD CARPET LOOM FIXER 08/17/2024 ADDENDUM STATUS: COMPLETED Hearing aid received and certified, upcoming appointment scheduled on 09/11/2024. /miroslava/ MARCELA PECK [facility] Computer Hardware Designer Signed: 08/17/2024 15:19 MELANI DAO [facility]
--- OUTSIDE RECORDS SUMMARY | 2024-10-15 09:32 | XMS_ITS | Continuity of Care Document ---
Author Name [facility] Organization [facility] Care Team Providers Care Live Truck Operator Name Role Phone [facility] Unavailable Unavailable Problems Combined list of problems from Department of Defense and Veterans [facility] facilities. It does not include entries that were removed or entered in error. Problem Status Onset Date Problem Type Date of Resolution Comments Source Diagnosis: ICD-10-CM Z46.1 Encounter for fitting and adjustment of hearing aid [facility] [place] [facility] Diagnosis: ICD-10-CM H90.A32 Mix cndct/snrl hear loss,uni,l ear w rstrcd hear cntra side Active Diagnosis [facility] [place] [facility] Immunizations Combined list of available immunizations from the Department of Defense and Veterans [facility] facilities. Immunization Series Date Given Administered By Site Reaction Lot Number CVX Code Drug Professor Of Geology Status Comments Source COVID-19 ([email or web address]), MRNA, LNP-S, PF, 30 MCG/0.3 ML DOSE 2 2020 208 complet ed PFR; [id number]; 1 [facility] COVID-19 ([email or web address]), MRNA, LNP-S, PF, 30 MCG/0.3 ML DOSE 1 2020 208 complet ed PFR; [id number]; 1 [facility] Encounters Combined list of: 1) Encounters from Department of Veterans Affairs facilities going back up to thelast 18 months. 2) Encounters from the Department of Defense facilities going back up to 280 months. Location Location Details Encounter Type Encounter Number Reason For Visit Attending Provider ADM Date DC Date Status Disposition Source [facility] HEARING AID FITTING/CH ECKING [id number] Diagnos is: ICD-10- CM H90.A32 Mix cndct/s nrl hear loss,un i,l ear w rstrcd hear cntra side
SENIOR,AGUSTINA OLE L 08/13 [facility] [place] [facility] [place] [facility] CONFORMITY EVALUATION [id number] Diagnos is: ICD-10- CM Z46.1 Encount er for fitting and adjustm ent of hearing aid<br/ > AGUSTINA DAO OLE L 09/11 [facility] [place] [facility]
--- OUTSIDE RECORDS SUMMARY | 2024-10-15 09:33 | XMS_ITS | Encounter Summary ---
Author Name [facility] Address [address] [place] [address] Support Name Relationship Address Phone DEXTER ALBARRAN Next of Kin [address] [place] [address] [phone] Insurance Providers: All historical and current Section [...] MIIA PATHF MIHAI REG Nov 21, 2022 [id number] [phone] DEION NGCLINTO N PATIENT [facility] ORGANIZ MIIA PATHF MIHAI REG Apr 20, 2018 [id number] DEION NGCLINTO N PATIENT [facility] CE ORGANIZ [facility] SHARE ACTIV E Oct 21, 2007 [id number] DEION NGCLINTO N PATIENT [facility] ([id number]) PRESCRIPT ION L4TA* Aug 21, 2008 L4TA [id number] DEION NGCLINTO N PATIENT [facility] ([id number]) PRESCRIPT ION L4TA* Aug 21, 2008 L4TA [id number] [phone] DEION NGCLINTO N PATIENT MEDICARE (WNR) MEDICARE (M) PART A Nov 21, 2022 PART A [id number] [phone] MARYSE ALBARRAN PATIENT MEDICARE (WNR) MEDICARE (M) PART B Nov 21, 2022 PART B [id number] VINCENT ALBARRAN JRRENETTA Joyce PATIENT Selected Encounter This section includes the information on record at [place] for the Encounter. Date/Time Encounter Type Encounter Description Reason Provider Source Sep 11, 2024 09:00 AM CONFORMITY EVALUATION AUDIOLOGY ICD-10-CM Z46.1 Encounter for fitting and adjustment of hearing aid MELANI DAO [place] Encounter Template Text not used by [place] Assessments - Encounter Diagnoses This section includes the primary and secondary diagnoses documented for the Encounter. Date/Time Primary/Secondary Diagnosis Diagnosis Name Provider Source Sep 11, 2024 09:29 AM PRIMARY Encounter for fitting and adjustment of hearing aid MELANI DAO [place] [facility] Sep 11, 2024 09:29 AM SECONDARY Mix cndct/snrl hear loss,uni,l ear w rstrcd hear cntra side MELANI DAO [place] [facility] [place] [facility] Sep 11, 2024 09:29 AM SECONDARY Snsrnrl hear loss, uni, r ear, with rstrcd hear cntra side MELANI DAO [place] [facility] [place] [facility] Sep 11, 2024 09:29 AM SECONDARY Tinnitus, bilateral MELANI DAO [place] [facility] [place] [facility] Encounter Notes: All associated encounter notes This section contains the clinical notes associated to the Encounter. Date/Time Encounter Note(s) Provider Source Sep 11, 2024 07:34 AM AUDIOLOGY E & M NO TE: [facility] TITLE: AUDIOLOGY CLINIC STANDARD TITLE: AUDIOLOGY [...] reported good subjective benefit as well. Feedback complex case manager was run. Hearing aids were found to be meeting targets adequately and MPO was not exceeding estimated UCL. Settings stored in [facility]. ASSESSMENT (A): The following devices were issued: Make: GN RESOUND Model: NEXIA 60 MICRO NO-R Right Serial Number: NONE Left Serial Number: [id number] Battery size: Rechargeable Warranty ends: 09/13/27 Trial Period ends: 02/10/25 Domes/wax guards: GN Wax Filter, Large power dome Drupal Web Developer size/power: Size 2 HP Program(s): Automatic Button(s): Short press= Volume Up Long press= Volume Down Extra-long press= Power on/off Fitting Formula: NAL-NL2 Remote Programming: HAs are capable Bluetooth: [place] will pair on own Counseling was completed [...] patient was informed of and signed/agreed to [place] policy on hearing aid issuance: Yes Users are responsible for the maintenance and security of their devices. Determination of need to replace a hearing aid is made by the [place] shrimp trawler captain. Hearing aids will not be replaced in [...] Education RE Not Applicable NA /NOLAN Sheriff, [facility] STAFF PNEUMATIC HOIST OPERATOR Signed: 09/11/2024 09:30 09/11/2024 ADDENDUM STATUS: COMPLETED [place]'s 2020 Guru aid was sent for repair today due to excessive battery drain. The repaired device will be mailed back to his address on file via [facility]. /NOLAN Sheriff, CCC-A STAFF PNEUMATIC HOIST OPERATOR Signed: 09/11/2024 09:31 MELANI DAO [place] [facility]
--- NOTE | 2024-10-15 09:34 | MHC.PC.OV ---
Vital Signs 10/15/24 09:36 Height 5 ft 9 in Weight 242 lb 2 oz BMI 35.8 BP 140/60 H Blood Pressure Location Lt brachial Position Sitting Respiration 16 Pulse 58 Pulse Source Pulse Oximeter Temp 97.8 F Temp Source Oral Pulse Oximetry (%) 98 Oxygen Delivery Method Room Air Intake Visit Reasons: f/u HTN Intake Note: f/u htn Allergies No Known Allergies Allergy (Verified 10/15/24 09:35) Tobacco use date assessed: 01/02/24 Dental Screening Dental Screen Date: 01/02/24 HPI f/u HTN HPI Details 68 y/o male presents to f/u HTN. Blood pressure today 140/60. He is on lisinopril 40mg, HCTZ 12.5mg, amlodipine 10mg , carvedilol 12.5mg b.i.d. and hydralazine 25mg t.i.d. Notes blood pressures at home have been in the 120/70 range. He had denied any high blood pressures. Knee x-ray has not been read yet from August. He is not seeing a specialist for his knees. Continues taking tylenol for relief as needed. Does not use it daily. HPI Comments History of Present Illness Details Documentation assistance for Hernan Remy MD, was provided by Mat Walters,? Business Office Technology Instructor on 10/15/2024 at 10:39 AM EST. I, Dr. Remy, have read, observed, and verified documentation. ?? [facility] Medical History (Updated 10/15/24 @ 10:49 by Hernan Remy MD) High cholesterol Hypertension Sinusitis Surgical History (Updated 01/02/24 @ 15:23 by Alee Dickens CMA) History of bilateral carpal tunnel release (~12/2018) History of left hip replacement (~04/2016) Hx of colonoscopy (~03/2023) Family History (Updated 01/02/24 @ 15:20 by Alee Dickens CMA) Father Hypertension High cholesterol Social History (Updated 01/02/24 @ 15:21 by Alee Dickens CMA) Household Members: Spouse Housing: House Patient Tobacco Use Status: Former Tobacco user e-Cigarette/Vaping Use: Never Used Current occupational status: retired Cognitive needs: No Hearing needs: Yes (left hearing aid) Vision needs: Yes Questionnaire Thrive Questionnaire Date Thrive assessed: 09/29/24 I am a: Patient What is your living situation today?: I have a steady place to live Within the past 12 months, did the food you bought not last and you didn't have the money to get more?: Never true Within the past 12 months, did you worry whether your food would run out before you got money to buy more?: Never true Do you have trouble paying for medicines?: No Do you have trouble getting transportation to medical appointments?: No Do you have trouble paying your heating and electricity bill?: No Do you have trouble taking care of your child, family member or friend?: No Do you have trouble with day-to-day activities such as bathing, preparing meals, shopping, managing finances, etc.?: No Are you currently unemployed and looking for a job?: No Are you interested in more education?: No Please select the resources that you would like help with: None Currently or been in a relationship where the following occur: No concerns reported THRIVE Score: 0 ALMA DELIA-7 AMB Questionnaire ALMA DELIA-7 Date ALMA DELIA - 7 assessed: 01/02/24 Source: Developed by Drs. Jarrell Nichols, Aleah Aleman, Lane Maharaj and colleagues, with an educational yin from [employer]. Review of Systems Const Denies chills, Denies fatigue, Denies fever(s), Denies headache(s) and Denies weakness ENT Denies dizziness and Denies headache(s) Card Denies dyspnea Resp Denies cough, Denies dyspnea, Denies wheezing and Denies other (shortness of breath) Musc Denies numbness and Denies tingling Neuro Denies dizziness, Denies headache(s), Denies numbness, Denies tingling and Denies weakness Psych Denies anxiety and Denies depression Endo Denies fatigue Aller/Immun Denies wheezing Physical exam (Primary Care) Vital Signs: Last Vital Signs Temp 97.8 F 10/15/24 09:36 Pulse 58 10/15/24 09:36 Resp 16 10/15/24 09:36 BP 140/60 H 10/15/24 09:36 Pulse Ox 98 10/15/24 09:36 Oxygen Delivery Method Room Air 10/15/24 09:36 BMI result Body Mass Index 35.8 Tobacco/Smoking Status: Tobacco use Status Tobacco use date assessed 01/02/24 10/15/24 09:39 Patient Tobacco Use Status Former Tobacco user 10/15/24 09:39 e-Cigarette/Vaping Use Never Used 10/15/24 09:39 Thrive Assessment: Date of Thrive Assessment Date Thrive assessed 09/29/24 10/15/24 09:39 Currently or been in a relationship where the following occur: No concerns reported Const General: well developed; No acute distress Nutritional Appearance: well nourished Orientation/consciousness: patient oriented x3 HENMT Head: Yes normocephalic and Yes atraumatic Eyes General: appearance normal, both eyes and all related structures Pupils: Equal, round and reactive pupils present EOM: EOMs intact bilaterally Resp Effort & Inspection: normal respiratory effort Neuro General: patient oriented x3 and gait normal Cranial nerves: Yes Equal, round and reactive pupils present Psych Affect: normal affect Coding Level of Care Code Est Pt Level 3 (52974) Diagnoses Hypertension I10 Elevated serum creatinine R79.89 Knee pain M25.569 Assessment & Plan Assessment & Plan (1) Hypertension: Code(s): I10 - Essential (primary) hypertension Category: Medical Plan: Blood?pressures?at?home?have?improved?with?decrease?in?hydrochlorothiazide?but?at?addition?of?hydralazine.??He?continues?amlodipine However,?patient?would?like?to?discontinue?hydrochlorothiazide Will?increase?his?hydralazine?further.??Stop?hydrochlorothiazide.??Continue?check?blood?pressures?and?call?me?if?there?is?any?problem (2) Elevated serum creatinine: Code(s): R79.89 - Other specified abnormal findings of blood chemistry Category: Medical Plan: The?above?plan?of?decreasing?and?stopping?hydrochlorothiazide?as?due?to?increases?in?creatinine?level Due?to?recheck?again?today?which?do?on?way?out. (3) Knee pain: Code(s): M25.569 - Pain in unspecified knee Category: Medical Plan: Ongoing?knee?pain. X-ray?was?acquired?in?August?is?still?not?read.??Office?staff?looking?into?this. At?this?point?however,?patient?would?like?a?referral?Ortho?which?I?made?today. Orders: Referrals Nurse Navigator Referral Z63.9 - Problem related to primary support group, unspecified Orthopedics Referral M25.569 - Pain in unspecified knee Medications: Changed From hydralazine 25 mg PO TID 30 days 90 tabs 2RF To hydralazine 50 mg PO TID 30 days 90 tabs 2RF
[2024-10-15 09:36] VITALS: BP 140/60; PULSE 58; RESP 16; TEMP 36.6; O2SAT 98; BMI 35.8
== END 2024-10-15 10:49 | disposition home or self-care (01) ==
PROVIDERS: PCP Family Medicine; Visit Provider Family Medicine
DX: I10 Essential (primary) hypertension (principal); R79.89 Other specified abnormal findings of blood chemistry; M25.569 Pain in unspecified knee

== ENCOUNTER → 2024-10-15 09:30 | Outpatient (BNVA) | payer MEDICARE, SELFPAY | PROVIDERS: PCP Family Medicine; Visit Provider Family Medicine | DX: I10 Essential (primary) hypertension (principal); M25.569 Pain in unspecified knee; R79.89 Other specified abnormal findings of blood chemistry; Z63.9 Problem related to primary support group, unspecified; Z79.899 Other long term (current) drug therapy | CPT/HCPCS: 99212 ==

== ENCOUNTER 2024-10-15 10:57 | Outpatient (REF) | payer MEDICARE, SELFPAY ==
--- OUTSIDE RECORDS SUMMARY | 2024-10-15 10:59 | XMS_ITS | Continuity of Care Document ---
Author Name [facility] Organization [facility] Care Team Providers Care Md Urologist Name Role Phone [facility] Unavailable Unavailable Problems Combined list of problems from Department of Defense and Veterans [facility] facilities. It does not include entries that were removed or entered in error. Problem Status Onset Date Problem Type Date of Resolution Comments Source Diagnosis: ICD-10-CM Z46.1 Encounter for fitting and adjustment of hearing aid [facility] [place] [facility] Diagnosis: ICD-10-CM H90.A32 Mix cndct/snrl hear loss,uni,l ear w rstrcd hear cntra side Active Diagnosis [facility] [place] [place] [facility] Immunizations Combined list of available immunizations from the Department of Defense and Veterans [facility] facilities. Immunization Series Date Given Administered By Site Reaction Lot Number CVX Code Drug Director Metabolism Status Comments Source COVID-19 ([employer]), MRNA, LNP-S, PF, 30 MCG/0.3 ML DOSE 2 2020 208 complet ed PFR; [id number]; 1 [facility] COVID-19 ([employer]), MRNA, LNP-S, PF, 30 MCG/0.3 ML DOSE 1 2020 208 complet ed PFR; [id number]; [facility] Encounters Combined list of: 1) Encounters from Department of Veterans Affairs facilities going back up to thelast 18 months. 2) Encounters from the Department of Defense facilities going back up to 280 months. Location Location Details Encounter Type Encounter Number Reason For Visit Attending Provider ADM Date DC Date Status Disposition Source [facility] HEARING AID FITTING/CH ECKING [id number] Diagnos is: ICD-10- CM H90.A32 Mix cndct/s nrl hear loss,un i,l ear w rstrcd hear cntra side
SENIOR,AGUSTINA OLE L 08/13 [facility] [place] [facility] [place] [facility] CONFORMITY EVALUATION [id number] Diagnos is: ICD-10- CM Z46.1 Encount er for fitting and adjustm ent of hearing aid<br/ > AGUSTINA DAO OLE L 09/11 [facility] [place] [facility]
[2024-10-15 14:47] LABS: Anion Gap 12 (12-20); Blood Urea Nitrogen 23 mg/dL (9-16); Calcium 9.8 mg/dL (8.4-10.2); Carbon Dioxide 30 mmol/L (22-29); Chloride 105 mmol/L (96-108); Estimated Glomerular Filt Rate 56; Glucose Random 98 mg/dL (60-115); Potassium 4.6 mmol/L (3.3-5.1); Sodium 142 mmol/L (135-145)
== END 2024-10-15 10:58 | disposition home or self-care (01) ==
LOC: HO.WFDLDS 10:57
PROVIDERS: Visit Provider Family Medicine
DX: Z00.00 Encounter for general adult medical examination without abnormal findings (principal); R79.89 Other specified abnormal findings of blood chemistry
CPT/HCPCS: 36415; 80048

== ENCOUNTER 2024-11-17 13:39 | Outpatient (AMB) | payer MEDICARE, SELFPAY ==
--- NOTE | 2024-11-17 13:52 | MHC.OFFVIS ---
Vital Signs 11/17/24 13:57 Height 5 ft 9 in Weight 242 lb 2 oz BMI 35.8 Intake Visit Reasons: Right knee pain and giving way Intake Note: Mihai is a 68 year old male who presents with complaints of progressively worsening right knee pain and giving way. The patient states that his symptoms have gotten worse over the last few years. Most of the pain is along the medial aspect of his knee. States that his right knee will give out several times per day. He has done physical therapy which aggravated his pain. He has also tried Tylenol and anti-inflammatory medicines which gave him minimal relief. He has failed the last 6 weeks of conservative treatment. Allergies No Known Allergies Allergy (Verified 11/17/24 13:56) Medication List - Last Reconciled 11/17/24 by Arturo Rowe MD amlodipine 10 mg PO DAILY 90 days carvedilol 12.5 mg PO BID 90 days cholecalciferol (vitamin D3) 50 mcg PO DAILY 90 days CPAP (CPAP Machine/Device) As directed hydralazine 50 mg PO TID 30 days lisinopril 40 mg PO DAILY 90 days lovastatin 20 mg PO DAILY 90 days [facility] Medical History (Updated 11/17/24 @ 14:17 by Arturo Rowe MD) High cholesterol Hypertension Sinusitis Surgical History (Updated 01/02/24 @ 15:23 by Alee Dickens CMA) History of bilateral carpal tunnel release (~12/2018) History of left hip replacement (~04/2016) Hx of colonoscopy (~03/2023) Family History (Updated 01/02/24 @ 15:20 by Alee Dickens CMA) Father Hypertension High cholesterol Social History (Updated 01/02/24 @ 15:21 by Alee Dickens CMA) Household Members: Spouse Housing: House Patient Tobacco Use Status: Former Tobacco user e-Cigarette/Vaping Use: Never Used Current occupational status: retired Cognitive needs: No Hearing needs: Yes (left hearing aid) Vision needs: Yes Physical Exam Vital Signs: BMI result Body Mass Index 35.8 Const Other: Well-nourished well-developed very friendly male awake alert and oriented x3 in no acute distress Extrem Other: Bilateral lower extremity examination shows good capillary refill, no skin lesions noted, normal sensation light touch Right knee examination shows a minimal effusion, minimal crepitus with range of motion, tenderness along his medial joint line, positive Lia's test, no instability Results Reviewed Results Reviewed: Standing full weight-bearing x-rays of the patient's right knee show mild diffuse joint space narrowing, no acute bony abnormalities Assessment & Plan Assessment & Plan (1) Tear of medial meniscus of right knee: Code(s): S83.241A - Other tear of medial meniscus, current injury, right knee, initial encounter Category: Medical Plan Mr. Jimenez presents with progressively worsening right knee pain and mechanical symptoms most likely due to a tear of his medial meniscus. Thus, I will send the patient for an MRI of his right knee for further evaluation. I will see him back once the MRI is completed to discuss the findings and treatment options. Feel free to call me at any time should questions regarding his orthopedic management arise. Thank you very much for asking me to see this very friendly gentleman. I spent 21 minutes in reviewing the patient's records and imaging studies, seeing the patient and documenting in the medical record. Orders: Orders MR knee RT wo con Today S83.241A - Other tear of medial meniscus, current injury, right knee, initial encounter Coding Level of Care Code New Pt Level 3 (06954) Complex EM visit Add On G2211 Diagnoses Tear of medial meniscus of right knee S83.241A
[2024-11-17 13:57] VITALS: BMI 35.8
--- OUTSIDE RECORDS SUMMARY | 2024-11-17 14:39 | XMS_ITS | Encounter Summary ---
Author Organization [facility], Address [address] [place] [address] Phone Care Team Providers Care Business Development Consultant Name Role Phone Yrn Lombardo MD Primary Care Provider Tito daniel Encounter Details Date Type Department Care Team (Late st Contact Info) Description 04/24/2023 Documentation Only [facility], [address] [place] [phone] Antonette Varghese [address] [place] [address] [phone] Social History Tobacco Use Types Packs/Day Years Used Date Smoking Tobacco: Never Sex and Gender Information Value Date Recorded Sex Assigned at Not on file Legal Sex Male 5:26 PM EST Gender Identity Not on file Sexual Orientation Not on file documented as of this encounter Plan of Treatment Not on file documented as of this encounter Visit Diagnoses Not on filedocumented in this encounter Care Teams Business Development Consultant Relationship Specialty Start Date End Date Yrn Lombardo MD PCP - General Internal Medicine 02/19/23 documented as of this encounter
--- OUTSIDE RECORDS SUMMARY | 2024-11-17 14:39 | XMS_ITS ---
Author Name [facility] Address [address] [place] [id number] Support Name Relationship Address Phone DEXTER ALBARRAN Next of Kin [address] [place] [address] [phone] Insurance Providers: All historical and current Section [...] MIIA PATHF MIHAI REG Nov 21, 2022 [id number] [phone] DEION NGCLINTO N PATIENT [facility] MIIA PATHF [place]I REG Apr 20, 2018 [id number] DEION NGCLINTO N PATIENT [facility] CE [facility]GAN[facility] SHARE ACTIV E Oct 21, 2007 [id number] MADISON ALBARRAN JR N PATIENT [facility] ([id number]) PRESCRIPT ION L4TA* Aug 21, 2008 L4TA [id number] [phone] DEION NGCLINRENETTA N PATIENT [facility] ([id number]) PRESCRIPT ION L4TA* Aug 21, 2008 L4TA [id number] [phone] DEION NGCLINTO N PATIENT MEDICARE (WNR) MEDICARE (M) PART A Nov 21, 2022 PART A [id number] DEIONMARYSE MELLOIsiah PATIENT MEDICARE (WNR) MEDICARE (M) PART B Nov 21, 2022 PART B [id number] VINCENT ALBARRAN JRRENETTA Isiah PATIENT Selected Encounter This section includes the information on record at [place] for the Encounter. Date/Time Encounter Type Encounter Description Reason Provider Source Oct 23, 2024 01:30 PM HEARING AID REPAIR/MODIFYIN G AUDIOLOGY ICD-10-CM Z46.1 Encounter for fitting and adjustment of hearing aid MELANI DAO [facility] Encounter Template Text not used by [place] Assessments - Encounter Diagnoses This section includes the primary and secondary diagnoses documented for the Encounter. Date/Time Primary/Secondary Diagnosis Diagnosis Name Provider Source Oct 23, 2024 02:17 PM PRIMARY Encounter for fitting and adjustment of hearing aid MELANI DAO [facility] Oct 23, 2024 02:17 PM SECONDARY Sensorineural hearing loss, bilateral MELANI DAO [facility] Plan of Treatment: Future Appointments (+ 6 months) and Future Tests (+/- 45 days) The Plan of Treatment section includes future care activities for the patient from all [place] treatmentfacilities. This section includes future appointments and future orders which are active, pending or scheduled. Future Appointments This section includes appointments that were scheduled to occur 6 months from the date of the Encounter, up to a maximum of 20 appointments. The data comes from all [place] treatment facilities. Appointment Date/Time Appointment Type Appointme nt Facility Name Nov 18, 2024 08:30 AM AMBULATORY - REHAB MEDICIN E [facility] Encounter Notes: All associated encounter notes This section contains the clinical notes associated to the Encounter. Date/Time Encounter Note(s) Provider Source Oct 23, 2024 09:54 AM AUDIOLOGY E & M NO TE: LOCAL TITLE: AUDIOLOGY CLINIC STANDARD TITLE: AUDIOLOGY E & M NOTE DATE OF NOTE: OCT 23, 2024@09:54 ENTRY DATE: OCT 23, 2024@09:54:49 AUTHOR: MELANI DAO EXP COSIGNER: URGENCY: STATUS: COMPLETED Dx CODE: Z46.1-Encounter for Fitting/Adjusting Hearing Aid(s); H90.3- Sensorineural Hearing Loss, Bilateral APPOINTMENT TYPE: Hearing Aid Check HISTORY/BACKGROUND: Huger was seen for a hearing aid follow-up appointment, unaccompanied. He was fit on 09/11/24 with a left only GN RESOUND NEXIA 60 MICRO NO-R. He scheduled today's appointment noting the hearing aid isn't working. He notes that it was working very well for a few weeks but now it is very weak and muffled. He tried changing the dome and wax guard but did not find any improvements. Listening check confirmed weak sound quality. Changed engineering professor, but still weak. Debris was vacuumed from the microphones - listening check was then positive once debris was cleared from the mics. reported a significant improvement in sound quality. He was advised to routinely use the hearing aid brushes to clear debris from the mics. PLAN/RECOMMENDATION(S): 1. Follow up as needed. Patient Education Education provided on the following topics: Hearing aids Education provided to: P Response to Education: VU Dai Patient P Family F Significant Other SO Verbalizes Understanding VU Returns Demonstration RD Performs Independently PI Lacks Comprehension LC Refused Education RE Not Applicable NA /miroslava/ NOLAN DANIELLE, CCC-A STAFF WIRER PASSENGER CAR Signed: 10/23/2024 14:17 MELANI DAO [place] [facility]
--- OUTSIDE RECORDS SUMMARY | 2024-11-17 14:39 | XMS_ITS | Encounter Summary ---
Author Organization [facility], Address [address] [place] [address] Phone Care Team Providers Care Regional Clinical Director Name Role Phone Yrn Lombardo MD Primary Care Provider Tito daniel Encounter Details Date Type Department Care Team (Late st Contact Info) Description 06/10/2023 Documentation Only [facility], [address] [place] [phone] Antonette Varghese [address] [place] [address] [phone] Social History Tobacco Use Types Packs/Day Years [...] on filedocumented in this encounter Care Teams Regional Clinical Director Relationship Specialty Start Date End Date Yrn Lombardo MD PCP - General Internal Medicine 02/19/23 documented as of this encounter
--- OUTSIDE RECORDS SUMMARY | 2024-11-17 14:39 | XMS_ITS | Continuity of Care Document ---
Author Name [facility] Organization [facility] Care Team Providers Care Parimutuel Ticket Checker Name Role Phone [facility] Unavailable Unavailable Problems Combined list of problems from Department of Defense and Veterans [facility] facilities. It does not include entries that were removed or entered in error. Problem Status Onset Date Problem Type Date of Resolution Comments Source Diagnosis: ICD-10-CM Z46.1 Encounter for fitting and adjustment of hearing aid Active Diagnosis 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 Immunization Series Date Given Administered By Site Reaction Lot Number CVX Code Drug Software Test Developer Status Comments Source COVID-19 (WhistleTalk), MRNA, LNP-S, PF, 30 MCG/0.3 ML DOSE 2 2020 208 complet ed PFR; [id number]; 1 [facility] [place] [facility] COVID-19 ([employer]), MRNA, LNP-S, PF, 30 MCG/0.3 ML DOSE 1 2020 208 complet ed PFR; [id number]; 1 [facility] [employer] [facility] Encounters Combined list of: 1) Encounters from Department of Veterans Affairs facilities going back up to thelast 18 months. 2) Encounters from the Department of Defense facilities going back up to 280 months. Location Location Details Encounter Type Encounter Number Reason For Visit Attending Provider ADM Date DC Date Status Disposition Source [facility] [place] [facility] HEARING AID FITTING/CH ECKING [id number] Diagnos is: ICD-10- CM H90.A32 Mix cndct/s nrl hear loss,un i,l ear w rstrcd hear cntra side
SENIOR,AG[place]INA OLE L 08/13 [place] [facility] [facility] [facility] [place] [facility] CONFORMITY EVALUATION [id number] 1. Diagnos is: ICD-10- CM Z46.1 Encount er for fitting and adjustm ent of hearing aid<br/ > SENIOR,[place]INA OLE L 09/11 [place] [facility] [facility] [facility] HEARING AID REPAIR/MOD IFYING [id number] Diagnos is: ICD-10- CM Z46.1 Encount er for fitting and adjustm ent of hearing aid<br/ > SENIOR,AGUSTINA OLE L 10/23 [facility] [place] [facility] Plan of Care List of future care activities from Department of Veterans Affairs facilities. Additional future care activities may be listed in the Assessment and Plan section. Date/Time Care Activity Care Activity Detail Facili ty 11/18/2024 AMBULATORY - REHAB MEDICINE AMBULATORY - [facility]
--- OUTSIDE RECORDS SUMMARY | 2024-11-17 14:39 | XMS_ITS | Clinical Summary ---
Author Organization [facility], Address [address] [place] [address] [place] [address] Phone Care Team Providers Care Stock Fitter Name Role Phone Yrn Lombardo MD Primary Care Provider Tito daniel Allergies No known active allergies Medications amLODIPine (NORVASC) 10 MG tablet 01/12/2023 Active buPROPion XL (WELLBUTRIN XL) 150 MG 24 hr tablet TAKE 1 TABLET BY MOUTH EVERY MORNING 01/23/2023 Active carvedilol (COREG) 12.5 MG tablet 6.25 mg 01/23/2023 Active hydroCHLOROthia zide 25 MG tablet 01/12/2023 Active lisinopril 40 MG tablet Take 40 mg by mouth 01/23/2023 Active lovastatin (MEVACOR) 20 MG tablet Take 20 mg by mouth 05/04/2016 Active Active Problems Problem Noted Date Diagnosed Date Chronic kidney disease, stage 2 (mild) 3 Serum creatinine above reference range 3 Hyperlipidemia 03/25/2023 Hypertension 03/25/2023 Prediabetes 03/25/2023 Vitamin D deficiency 03/25/2023 Social History Tobacco Use Types Packs/Day Years Used Date Smoking Tobacco: Never Sex and Gender Information Value Date Recorded Sex Assigned at Not on file Legal Sex Male 5:26 PM EST Gender Identity Not on file Sexual Orientation Not on file Plan of Treatment Health Maintenance Due Date Last Done Comments Pneumococcal Vaccine: 65+ Ye ars (1 of 2 - PCV) 1961 Colorectal Cancer Screening: Annual FOBT 2006 Colorectal Cancer Screening: Colonoscopy 2006 Colorectal Cancer Screening: Sigmoidoscopy 2006 Influenza Vaccine (#1) 2024 Hepatitis B Vaccine Aged Out No longe r eligible based on patient's age to complete this topic Insurance MEDICARE [facility] Care Teams Stock Fitter Relationship Specialty Start Date End Date Yrn Lombardo MD PCP - General Internal Medicine 02/19/23
--- OUTSIDE RECORDS SUMMARY | 2024-11-17 14:39 | XMS_ITS | Encounter Summary ---
Author Organization [facility] Address [address] [place] [address] Phone Care Team Providers Care Clinical Account Liaison Name Role Phone Yrn Lombardo MD Primary Care Provider Tito daniel Encounter Details Date Type Department Care Team (Late st Contact Info) Description 02/19/2023 Documentation Only [facility] [place], [address] [place] [phone] Yrn Lombardo MD [address] [place] [address] Social History Tobacco Use Types Packs/Day Years Used Date Smoking Tobacco: Never Assessed Sex and Gender Information Value Date Recorded Sex Assigned at Not on file Legal Sex Male 5:26 PM EST Gender Identity Not on file Sexual Orientation Not on file documented as of this encounter Plan of Treatment Not on file documented as of this encounter Visit Diagnoses Not on filedocumented in this encounter Care Teams Clinical Account Liaison Relationship Specialty Start Date End Date Yrn Lombardo MD PCP - General Internal Medicine 02/19/23 documented as of this encounter
== END 2024-11-17 14:15 | disposition home or self-care (01) ==
PROVIDERS: PCP Family Medicine; Visit Provider Orthopaedic Surgery
DX: S83.241A Other tear of medial meniscus, current injury, right knee, initial encounter (principal)
CPT/HCPCS: 99203; G2211

== ENCOUNTER → 2024-11-17 13:39 | Outpatient (BNVA) | payer MEDICARE, SELFPAY | PROVIDERS: PCP Family Medicine; Visit Provider Orthopaedic Surgery | DX: S83.241A Other tear of medial meniscus, current injury, right knee, initial encounter (principal); X58.XXXA Exposure to other specified factors, initial encounter; Y93.9 Activity, unspecified; Y92.9 Unspecified place or not applicable; Y99.9 Unspecified external cause status | CPT/HCPCS: 99202 ==

== ENCOUNTER → 2024-11-18 19:50 | Outpatient (BNV) | payer MEDICARE, SELFPAY | PROVIDERS: PCP Family Medicine; Visit Provider Radiology Diagnostic Radiology | DX: M71.21 Synovial cyst of popliteal space [Baker], right knee (principal) | CPT/HCPCS: 73721 ==

== ENCOUNTER 2024-11-18 19:51 | Outpatient (REF) | payer MEDICARE, SELFPAY ==
--- NOTE | ~2024-11-18 | MR_ITS ---
EXAMINATION: MRI RIGHT KNEE WITHOUT CONTRAST HISTORY: S83.241A - Other tear of medial meniscus, current injury, right knee COMPARISON: Correlation is made with plain films of the right knee dated 09/09/2024. TECHNIQUE: Coronal T1 and fat-suppressed proton density, sagittal proton density and fat-suppressed proton density, and axial fat suppressed T2 weighted MR images of the right knee were obtained. FINDINGS: Bone marrow signal intensity is normal. There is no significant suprapatellar joint effusion. There is a moderate-sized Herbert's cyst measuring 6.8 x 1.3 x 3.3 cm. There is mild osteoarthritis of the lateral compartment with cartilage irregularity and osteophyte formation. The anterior and posterior cruciate ligaments and medial and lateral collateral ligaments are intact. There is irregularity and partial extrusion of the body of the lateral meniscus, consistent with a degenerative tear. There is increased T2 signal intensity in the posterior horn of the lateral meniscus which contacts the inferior joint surface. There is degenerative signal in the body and posterior horn of the medial meniscus. Small focus of increased signal intensity contacts the superior joint surface of the body suggestive of a tear. The patellar and quadriceps tendons and patellar retinacula are unremarkable in appearance. There is mild increased signal intensity at the insertion of the popliteus tendon may represent tendinosis or a a chronic partial tear. MR/MR knee RT wo con IMPRESSION: 1. Moderate Herbert's cyst. 2. Mild osteoarthritis of the lateral compartment. 3. Findings consistent with a degenerative tear of the body and posterior horn of the lateral meniscus as described. 2. Possible tear of the body of the medial meniscus. 5. Tendinosis versus chronic partial tear of the insertion of the popliteus tendon. Electronically signed by: Jarrell George MD 11/19/2024 10:01 AM ESTUARDO
--- OUTSIDE RECORDS SUMMARY | 2024-11-18 19:58 | XMS_ITS | Clinical Summary ---
Author Organization [facility], Address [address] [place] [address] [place] [address] Phone Care Team Providers Care Nuclear Control Operator Name Role Phone Yrn Lombardo MD Primary [...] age to complete this topic Insurance MEDICARE [facility] Care Teams Nuclear Control Operator Relationship Specialty Start Date End Date Yrn Lombardo MD PCP - General Internal Medicine 02/19/23
--- OUTSIDE RECORDS SUMMARY | 2024-11-18 19:58 | XMS_ITS | Encounter Summary ---
Author Organization [facility] [place], Address [address] [place] [address] Phone Care Team Providers Care Roll Examiner Name Role Phone Yrn Lombardo MD Primary Care Provider Tito daniel Encounter Details Date Type Department Care Team (Late st Contact Info) Description 04/24/2023 Documentation Only [facility] [place], [address] [place] [phone] Antonette Varghese [address] [place] [address] [phone] Social History Tobacco Use Types Packs/Day Years [...] on filedocumented in this encounter Care Teams Roll Examiner Relationship Specialty Start Date End Date Yrn Lombardo MD PCP - General Internal Medicine 02/19/23 documented as of this encounter
--- OUTSIDE RECORDS SUMMARY | 2024-11-18 19:58 | XMS_ITS | Encounter Summary ---
Author Organization [facility] [place], Address [address] [place] [address] Phone Care Team Providers Care Lightning Rod Erector Name Role Phone Yrn Lombardo MD Primary Care Provider Tito daniel Encounter Details Date Type Department Care Team (Late st Contact Info) Description 06/10/2023 Documentation Only [facility], [address] [place] [phone] Antonette Varghese [address] [place] [address] [phone] Social History Tobacco Use Types Packs/Day Years [...] on filedocumented in this encounter Care Teams Lightning Rod Erector Relationship Specialty Start Date End Date Yrn Lombardo MD PCP - General Internal Medicine 02/19/23 documented as of this encounter
--- OUTSIDE RECORDS SUMMARY | 2024-11-18 19:58 | XMS_ITS | Encounter Summary ---
Author Organization [facility] Address [address] [place] [address] Phone Care Team Providers Care Fermentation Scientist Name Role Phone Yrn Lombardo MD Primary Care Provider Tito daniel Encounter Details Date Type Department Care Team (Late st Contact Info) Description 02/19/2023 Documentation Only [facility] [place], [address] [place] [place] [phone] Yrn Lombardo MD [address] [place] [address] Social History Tobacco Use Types Packs/Day Years [...] on filedocumented in this encounter Care Teams Fermentation Scientist Relationship Specialty Start Date End Date Yrn Lombardo MD PCP - General Internal Medicine 02/19/23 documented as of this encounter
--- OUTSIDE RECORDS SUMMARY | 2024-11-18 19:58 | XMS_ITS ---
Author Name [facility] Organization [facility] Address [address] [place] [address] Support Name Relationship Address Phone DEXTER ALBARRAN Next of Kin [address] [place] [address] [phone] Insurance Providers: All historical and current Section [...] MIIA PATHF [place] REG Nov 21, 2022 [id number] [phone] DEION NGCLINTO N PATIENT [facility] MIIA PATHF [place] REG Apr 20, 2018 [id number] [phone] DEION NGCLINTO N PATIENT [facility] CE ORGANIZ [facility] SHARE ACTIV E Oct 21, 2007 [id number] [phone] MADISON ALBARRAN JR N PATIENT [facility] ([id number]) PRESCRIPT ION L4TA* Aug 21, 2008 L4TA [id number] DEION NGCLINRENETTA N PATIENT [facility] ([id number]) PRESCRIPT ION L4TA* Aug 21, 2008 L4TA [id number] [phone] DEION NGCLINRENETTA N PATIENT MEDICARE (WNR) MEDICARE (M) PART A Nov 21, 2022 PART A [id number] DEION,MARYSE GARCIA PATIENT MEDICARE (WNR) MEDICARE (M) PART B Nov 21, 2022 PART B [id number] DEION MADISON PATIENT Selected Encounter This section includes the information on record at [place] for the Encounter. Date/Time Encounter Type Encounter Description Reason Provider Source Nov 18, 2024 08:30 AM HEARING AID REPAIR/MODIFYIN G AUDIOLOGY ICD-10-CM Z46.1 Encounter for fitting and adjustment of hearing aid NORA FOX [place] Encounter Template Text not used by [place] Assessments - Encounter Diagnoses This section includes the primary and secondary diagnoses documented for the Encounter. Date/Time Primary/Secondary Diagnosis Diagnosis Name Provider Source Nov 18, 2024 08:46 AM PRIMARY Encounter for fitting and adjustment of hearing aid NORA FOX [facility] Nov 18, 2024 08:46 AM SECONDARY Mix cndct/snrl hear loss,uni,l ear w rstrcd hear cntra side [facility] Nov 18, 2024 08:46 AM SECONDARY Snsrnrl hear loss, uni, r ear, with rstrcd hear cntra side [facility] Plan of Treatment: Future Appointments (+ [...] Date/Time Appointment Type Appointme nt Facility Name Dec 16, 2024 10:00 AM AMBULATORY - REHAB MEDICIN E [facility] Encounter Notes: All associated encounter notes This section contains the clinical notes associated to the Encounter. Date/Time Encounter Note(s) Provider Source Nov 18, 2024 07:27 AM AUDIOLOGY E & M NOTE: LOCAL TITLE: AUDIOLOGY CLINIC STANDARD TITLE: AUDIOLOGY E & M NOTE DATE OF NOTE: NOV 18, 2024@07:27 ENTRY DATE: NOV 18, 2024@07:28:04 AUTHOR: NORA FOX COSIGNER: URGENCY: STATUS: COMPLETED Dx CODE: Z46.1-Encounter for Fitting/Adjusting Hearing Aid(s);H90.A32- Mixed Hearing Loss, Left Ear; H90.A21- Sensorineural Hearing Loss, Right Ear APPOINTMENT TYPE: Hearing Aid Programming HISTORY/BACKGROUND: The patient was seen for a hearing aid follow-up appointment, unaccompanied. He was fit with a left only ReSound Nexia 60 micro NO-R on 09/11/24. Trial period expires: 02/10/25. He is a previous user of a Ceradisio uShip AI ITE and wants to return to this style hearing aid. HEARING AID CHECK: The old left ITE was cleaned and checked. Microphone covers and wax guard replaced. Listening inspection revealed device was working well. The left ReSound hearing aid was returned for credit. Impression was taken without incident and with 's verbal permission for a new left 4Blox Edge AI ITC R. PLAN/RECOMMENDATION(S): 1. RTC on 12/16/24 at 10AM for a 60 minute HAF appointment. * Patient Education Education provided on the following topics: Hearing aids Education provided to: P Response to Education: VU Dai Patient P Family F Significant Other SO Verbalizes Understanding VU Returns Demonstration RD Performs Independently PI Lacks Comprehension LC Refused Education RE Not Applicable NA * /miroslava/ NORA FOX STAFF SOLAR SYSTEM DESIGNER Signed: 11/18/2024 08:46 Receipt Acknowledged By: 11/18/2024 09:09 /miroslava/ CHASIDY TENORIO LEAD SENIOR BUDGET ANALYST NORA FOXRL [facility]
--- OUTSIDE RECORDS SUMMARY | 2024-11-18 19:58 | XMS_ITS | Continuity of Care Document ---
Author Name [facility] Organization [facility] Care Team Providers Care Refuse Collector Supervisor Name Role Phone [facility] Unavailable Unavailable Problems Combined list of problems from Department of Defense and [facility] facilities. It does not include entries that were removed or entered in error. Problem Status Onset Date Problem Type Date of Resolution Comments Source Diagnosis: ICD-10-CM Z46.1 Encounter for fitting and adjustment of hearing aid Active Diagnosis 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 facilities. Immunization Series Date Given Administered By Site Reaction Lot Number CVX Code Drug Product Design Specialist Status Comments Source COVID-19 ([facility]), MRNA, LNP-S, PF, 30 MCG/0.3 ML DOSE 2 2020 208 complet ed PFR; [id number]; 1 [facility] [place] [facility] COVID-19 ([facility]), MRNA, LNP-S, PF, 30 MCG/0.3 ML DOSE 1 2020 208 complet ed PFR; [id number]; [facility] [employer] [facility] Encounters Combined list of: 1) Encounters from Department of Veterans Affairs facilities going back up to thelast 18 months. 2) Encounters from the Department of Defense facilities going back up to 280 months. Location Location Details Encounter Type Encounter Number Reason For Visit Attending Provider ADM Date DC Date Status Disposition Source [facility] [place] [facility] HEARING AID FITTING/CH ECKING [id number] Diagnos is: ICD-10- CM H90.A32 Mix cndct/s nrl hear loss,un i,l ear w rstrcd hear cntra side
SENIOR,AGUSTINA OLE L 08/13 [facility] [place] [facility] [place] [facility] CONFORMITY EVALUATION [id number] 1. Diagnos is: ICD-10- CM Z46.1 Encount er for fitting and adjustm ent of hearing aid<br/ > SENIOR,AGUSTINA OLE L 09/11 [facility] [place] [facility] [place] [facility] HEARING AID REPAIR/MOD IFYING [id number] Diagnos is: ICD-10- CM Z46.1 Encount er for fitting and adjustm ent of hearing aid<br/ > SENIOR,AGUSTINA OLE L 10/23 [facility] [place] [facility] [place] [facility] HEARING AID REPAIR/MOD IFYING [id number] Diagnos is: ICD-10- CM Z46.1 Encount er for fitting and adjustm ent of hearing aid<br/ > BENNETT FOX 11/18 [facility] [place] [facility] Plan of Care List of future care activities from Department of Veterans Affairs facilities. Additional future care activities may be listed in the Assessment and Plan section. Date/Time Care Activity Care Activity Detail Amauryi ty 11/18/2024 AMBULATORY - REHAB MEDICINE AMBULATORY - [facility] MEDIC[facility] [place] [facility] 12/16/2024 AMBULATORY - REHAB MEDICINE AMBULATORY - [facility] MEDICINE [facility] [place] [facility]
== END 2024-11-18 19:52 | disposition home or self-care (01) ==
LOC: HO.MRI 19:51
PROVIDERS: PCP Family Medicine; Visit Provider Orthopaedic Surgery
DX: S83.241A Other tear of medial meniscus, current injury, right knee, initial encounter (principal)
CPT/HCPCS: 73721

== ENCOUNTER 2024-11-20 09:35 | Outpatient (AMB) | payer MEDICARE, SELFPAY ==
--- NOTE | 2024-11-20 10:03 | A.OFFPC_ITS ---
Vital Signs 11/20/24 10:05 Height 5 ft 9 in Weight 240 lb 8 oz BMI 35.5 BP 140/60 H Blood Pressure Location Rt brachial Position Sitting Respiration 14 Pulse 64 Pulse Source Pulse Oximeter Temp 98.1 F Temp Source Oral Pulse Oximetry (%) 97 Oxygen Delivery Method Room Air Intake Visit Reasons: f/u HTN Intake Note: f/u HTN Allergies No Known Allergies Allergy (Verified 11/20/24 10:04) Tobacco use date assessed: 01/02/24 Dental Screening Dental Screen Date: 01/02/24 HPI f/u HTN HPI0 Details 68 y/o male presents to f/u hypertension with rising creatinine levels and knee pain. Had decreased HCTZ and added hydralazine at last visit. Last labs drawn 10/15/24. Creatinine level improved from 1.61 to 1.29. Blood pressure today 140/60, 64p. He is on amlodipine 10mg, carvedilol 12.5mg b.i.d, lisinopril 40mg daily, hdralazine 50mg t.i.d. BP at home have been consistently in the 130s/60s. Ongoing R knee pain. Followed by Dr. Gillette. [facility] Medical History (Updated 11/20/24 @ 10:46 by Mat Walters) High cholesterol Hypertension Sinusitis Surgical History (Updated 01/02/24 @ 15:23 by Alee Dickens CMA) History of bilateral carpal tunnel release (~12/2018) History of left hip replacement (~04/2016) Hx of colonoscopy (~03/2023) Family History (Updated 01/02/24 @ 15:20 by Alee Dickens CMA) Father Hypertension High cholesterol Social History (Updated 01/02/24 @ 15:21 by Alee Dickens CMA) Household Members: Spouse Housing: House Patient Tobacco Use Status: Former Tobacco user e-Cigarette/Vaping Use: Never Used Current occupational status: retired Cognitive needs: No Hearing needs: Yes (left hearing aid) Vision needs: Yes Questionnaire PHQ-9 Over the last 2 weeks, how often have you been bothered by any of the following problems? 1. Little interest or pleasure in doing things: not at all 2. Feeling down, depressed, or hopeless: not at all 3. Trouble falling or staying asleep, or sleeping too much: not at all 4. Feeling tired or having little energy: not at all 5. Poor appetite or overeating: not at all 6. Feeling bad about yourself - or that you are a failure or have let yourself or your family down: not at all 7. Trouble concentrating on things, such as reading the newspaper or watching television: not at all 8. Moving or speaking so slowly that other people could have noticed. Or the opposite - being so fidgety or restless that you have been moving around a lot more than usual: not at all 9. Thoughts that you would be better off or of hurting yourself in some way: not at all Total score: 0 Source: Developed by Drs. Jarrell Nichols, Aleah Aleman, Lane Maharaj and colleagues, with an educational yin from [email or web address]. Thrive Questionnaire Date Thrive assessed: 11/13/24 I am a: Patient What is your living situation today?: I have a steady place to live Within the past 12 months, did the food you bought not last and you didn't have the money to get more?: Never true Within the past 12 months, did you worry whether your food would run out before you got money to buy more?: Never true Do you have trouble paying for medicines?: No Do you have trouble getting transportation to medical appointments?: No Do you have trouble paying your heating and electricity bill?: No Do you have trouble taking care of your child, family member or friend?: No Do you have trouble with day-to-day activities such as bathing, preparing meals, shopping, managing finances, etc.?: No Are you currently unemployed and looking for a job?: No Are you interested in more education?: No Please select the resources that you would like help with: None Currently or been in a relationship where the following occur: No concerns reported THRIVE Score: 0 AUDIT C Alcohol Use Questionnaire (AUDIT-C) 1. How often do you have a drink containing alcohol?: Monthly or less 2. How many drinks containing alcohol do you have on a typical day when you are drinking?: 1 or 2 3. How often do you have six or more drinks on one occasion?: Never Total Score: 1 ALMA DELIA-7 AMB Questionnaire ALMA DELIA-7 Date ALMA DELIA - 7 assessed: 01/02/24 Feeling nervous, anxious, or on edge: 0 = Not at all Not being able to stop or control worryin = Not at all Worrying too much about different things: 0 = Not at all Trouble relaxin = Not at all Being so restless that it is hard to sit still: 0 = Not at all Becoming easily annoyed or irritable: 0 = Not at all Feeling afraid as if something awful might happen: 0 = Not at all Total ALMA DELIA-7 score (0-4 normal; 5-9 mild; 10-14 moderate; 15-21 severe): 0 Source: Developed by Drs. Jarrell Nichols, Aleah Aleman, Lane Maharaj and colleagues, with an educational yin from [email or web address]. Review of Systems Const Denies chills, Denies fatigue, Denies fever(s), Denies headache(s) and Denies weakness ENT Denies dizziness and Denies headache(s) Card Denies dyspnea Resp Denies cough, Denies dyspnea, Denies wheezing and Denies other (shortness of breath) Musc Denies numbness and Denies tingling Neuro Denies dizziness, Denies headache(s), Denies numbness, Denies tingling and Denies weakness Psych Denies anxiety and Denies depression Endo Denies fatigue Aller/Immun Denies wheezing Physical exam (Primary Care) Vital Signs: Last Vital Signs Temp 98.1 F 11/20/24 10:05 Pulse 64 11/20/24 10:05 Resp 14 11/20/24 10:05 BP 140/60 H 11/20/24 10:05 Pulse Ox 97 11/20/24 10:05 Oxygen Delivery Method Room Air 11/20/24 10:05 BMI result Body Mass Index 35.5 Tobacco/Smoking Status: Tobacco use Status Tobacco use date assessed 01/02/24 11/20/24 10:09 Patient Tobacco Use Status Former Tobacco user 11/20/24 10:09 e-Cigarette/Vaping Use Never Used 11/20/24 10:09 PHQ-9: PHQ-9 Score PHQ-9: Total score 0 11/20/24 10:38 Thrive Assessment: Date of Thrive Assessment Date Thrive assessed 11/13/24 11/20/24 10:09 Currently or been in a relationship where the following occur: No concerns reported Const General: well developed; No acute distress Nutritional Appearance: well nourished Orientation/consciousness: patient oriented x3 [facility] Head: Yes normocephalic and Yes atraumatic Eyes General: appearance normal, both eyes and all related structures Pupils: Equal, round and reactive pupils present EOM: EOMs intact bilaterally Resp Effort & Inspection: normal respiratory effort Auscultation: clear to auscultation bilaterally Cardio Rate: regular rate Rhythm: regular rhythm Heart sounds: S1 normal heart sound present, S2 normal heart sound present, no gallops, no murmurs and no rubs Neuro General: patient oriented x3 and gait normal Cranial nerves: Yes Equal, round and reactive pupils present Psych Affect: normal affect Coding Level of Care Code Est Pt Level 4 (09961) Diagnoses Hypertension I10 Elevated serum creatinine R79.89 Right knee pain M25.561 Assessment & Plan Assessment & Plan (1) Hypertension: Code(s): I10 - Essential (primary) hypertension Category: Medical Plan: Blood?pressure?140/60?in?office?but?patient?has?a?log?showing?that?his?blood?pre ssures?are?consistently?130s/60s?at?home.??This?is?controlled;?goal?is?less?sonal n?140/90 Continue?current?medication?regimen Encouraged?him?to?work?at?weight?loss,?diet?low?in?salt/sodium?in?exercise?as?to lerated. (2) Elevated serum creatinine: Code(s): R79.89 - Other specified abnormal findings of blood chemistry Category: Medical Plan: Had?taken?patient?off?hydrochlorothiazide?as?his?creatinine?level?was?high. Creatinine?level?now?back?within?normal?limits Blood?pressures?at?home?are?okay Will?continue?to?monitor (3) Right knee pain: Code(s): M25.561 - Pain in right knee Category: Medical Plan: Right?knee?pain?and?he?is?now?followed?by?. Recent?MRI?shows?right?lateral?meniscal?tear?and?popliteus?tendon?partial?tear as?well?as?some?osteoarthritis?and?a?Herbert's?cyst. Follow-up?with?ortho?as?recommended Medications: Changed From hydralazine 50 mg PO TID 30 days 90 tabs 2RF To hydralazine 50 mg PO TID 270 tabs 2RF 90 days
[2024-11-20 10:05] VITALS: BP 140/60; PULSE 64; RESP 14; TEMP 36.7; O2SAT 97; BMI 35.5
--- OUTSIDE RECORDS SUMMARY | 2024-11-20 10:10 | XMS_ITS | Clinical Summary ---
Author Organization [facility], Address [address] [place] [address] [place] [address] Phone Care Team Providers Care Bender Machine Operator Name Role Phone Yrn Lombardo MD [...] age to complete this topic Insurance MEDICARE [facility] Care Teams Bender Machine Operator Relationship Specialty Start Date End Date Yrn Lombardo MD PCP - General Internal Medicine 02/19/23
--- OUTSIDE RECORDS SUMMARY | 2024-11-20 10:10 | XMS_ITS | Encounter Summary ---
Author Organization [facility], Address [address] [place] [address] Phone Care Team Providers Care Patient Observation Assistant Name Role Phone Yrn Lombardo MD Primary Care Provider Tito daniel Encounter Details Date Type Department Care Team (Late st Contact Info) Description 06/10/2023 Documentation Only [facility], [address] [place] [phone] Antonette Varghese [address] [place] [address] [phone] Social History Tobacco Use Types Packs/Day Years [...] on filedocumented in this encounter Care Teams Patient Observation Assistant Relationship Specialty Start Date End Date Yrn Lombardo MD PCP - General Internal Medicine 02/19/23 documented as of this encounter
--- OUTSIDE RECORDS SUMMARY | 2024-11-20 10:10 | XMS_ITS | Encounter Summary ---
Author Organization [facility], Address [address] [place] [address] Phone Care Team Providers Care Jacket Changer Name Role Phone Yrn Lombardo MD Primary Care Provider Tito daniel Encounter Details Date Type Department Care Team (Late st Contact Info) Description 04/24/2023 Documentation Only [facility], [address] [place] [phone] Antonette Varghese [address] [place] [address] [phone] Social History Tobacco Use Types Packs/Day Years [...] on filedocumented in this encounter Care Teams Jacket Changer Relationship Specialty Start Date End Date Yrn Lombardo MD PCP - General Internal Medicine 02/19/23 documented as of this encounter
--- OUTSIDE RECORDS SUMMARY | 2024-11-20 10:10 | XMS_ITS | Encounter Summary ---
Author Organization [facility] Address [address] [place] [address] Phone Care Team Providers Care Separator Inserter Name Role Phone Yrn Lombardo MD Primary Care Provider Tito daniel Encounter Details Date Type Department Care Team (Late st Contact Info) Description 02/19/2023 Documentation Only [facility], [address] [place] [phone] Yrn Lombardo MD [address] [place] [address] Social History Tobacco Use Types Packs/Day Years [...] on filedocumented in this encounter Care Teams Separator Inserter Relationship Specialty Start Date End Date Yrn Lombardo MD PCP - General Internal Medicine 02/19/23 documented as of this encounter
== END 2024-11-20 10:49 | disposition home or self-care (01) ==
PROVIDERS: PCP Family Medicine; Visit Provider Family Medicine
DX: I10 Essential (primary) hypertension (principal); R79.89 Other specified abnormal findings of blood chemistry; M25.561 Pain in right knee

== ENCOUNTER → 2024-11-20 09:35 | Outpatient (BNVA) | payer MEDICARE, SELFPAY | PROVIDERS: PCP Family Medicine; Visit Provider Family Medicine | DX: I10 Essential (primary) hypertension (principal); R79.89 Other specified abnormal findings of blood chemistry; M25.561 Pain in right knee | CPT/HCPCS: 99212 ==

== ENCOUNTER 2024-12-23 09:31 | Outpatient (AMB) | payer MEDICARE, SELFPAY ==
[2024-12-23 09:37] VITALS: BMI 35.4
--- NOTE | 2024-12-23 09:37 | MHC.OFFVIS ---
Vital Signs 12/23/24 09:37 Height 5 ft 9 in Weight 240 lb BMI 35.4 Intake Visit Reasons: Right knee pain and giving way Intake Note: Mihai is a 68 year old male who presents with complaints of progressively worsening right knee pain and giving way. The patient states that his symptoms have gotten worse over the last few years. Most of the pain is along the medial aspect of his knee. States that his right knee will give out several times per day. He has done physical therapy which aggravated his pain. He has also tried Tylenol and anti-inflammatory medicines which gave him minimal relief. He has failed the last 6 weeks of conservative treatment. Allergies No Known Allergies Allergy (Verified 12/23/24 09:37) Medication List - Last Reconciled 12/23/24 by Arturo Rowe MD amlodipine 10 mg PO DAILY 90 days carvedilol 12.5 mg PO BID 90 days cholecalciferol (vitamin D3) 50 mcg PO DAILY 90 days CPAP (CPAP Machine/Device) As directed hydralazine 50 mg PO TID 90 days lisinopril 40 mg PO DAILY 90 days lovastatin 20 mg PO DAILY 90 days [facility] Medical History High cholesterol Hypertension Sinusitis Surgical History History of bilateral carpal tunnel release (~12/2018) History of left hip replacement (~04/2016) Hx of colonoscopy (~03/2023) Family History Father Hypertension High cholesterol Social History Household Members: Spouse Housing: House Patient Tobacco Use Status: Former Tobacco user e-Cigarette/Vaping Use: Never Used Current occupational status: retired Cognitive needs: No Hearing needs: Yes (left hearing aid) Vision needs: Yes Physical Exam Vital Signs: BMI result Body Mass Index 35.4 Const Other: Well-nourished well-developed very friendly male awake alert and oriented x3 in no acute distress Extrem Other: Bilateral lower extremity examination shows good capillary refill, no skin lesions noted, normal sensation light touch Right knee examination shows a minimal effusion, mild crepitus with range of motion, tenderness along his medial and lateral joint lines, positive Lia's test, no instability Results Reviewed Results Reviewed: Standing full weight-bearing x-rays of the patient's right knee shows mild diffuse joint space narrowing, no acute bony abnormalities MRI of the patient's right knee shows mild diffuse degenerative changes as well as tearing of his medial and lateral menisci Assessment & Plan Assessment & Plan (1) Tear of medial meniscus of right knee: Code(s): S83.241A - Other tear of medial meniscus, current injury, right knee, initial encounter Category: Medical Plan Mr. Jimenez presents with progressively worsening right knee pain and mechanical symptoms due to tearing of his medial and lateral menisci. I had a lengthy discussion with the patient regarding the treatment options. At this point he has failed continued non operative treatments. The risks and benefits of right knee arthroscopic surgery were discussed at length with the patient. The patient wishes to proceed with surgery. Surgery will most likely involve right knee arthroscopic partial medial and lateral meniscectomies. The patient does understand that he may not get 100% relief of his symptoms depending on the severity of his degenerative changes. The patient will be scheduled for next available date. He will follow-up as instructed. Feel free to call me at any time should questions regarding his orthopedic management arise. I spent 22 minutes in reviewing the patient's records and imaging studies, seeing the patient and documenting in the medical record. Coding Level of Care Code Est Pt Level 3 (45641) Complex EM visit Add On G2211 Diagnoses Tear of medial meniscus of right knee S83.241A
--- OUTSIDE RECORDS SUMMARY | 2024-12-23 10:48 | XMS_ITS | Encounter Summary ---
Author Organization [facility], Address [address] [place] [address] Phone Care Team Providers Care Green Lumber Grader Name Role Phone Yrn Lombardo MD Primary Care Provider Tito daniel Encounter Details Date Type Department Care Team (Late st Contact Info) Description 04/24/2023 Documentation Only [facility], [address] [place] [phone] Antonette Varghese [address] [place] [phone] Social History Tobacco Use Types Packs/Day Years [...] on filedocumented in this encounter Care Teams Green Lumber Grader Relationship Specialty Start Date End Date Yrn Lombardo MD PCP - General Internal Medicine 02/19/23 documented as of this encounter
--- OUTSIDE RECORDS SUMMARY | 2024-12-23 10:48 | XMS_ITS | Encounter Summary ---
Author Organization [facility] Address [address] [place] [address] Phone Care Team Providers Care Stock Sorter Name Role Phone Yrn Lombardo MD Primary Care Provider Tito daniel Encounter Details Date Type Department Care Team (Late st Contact Info) Description 02/19/2023 Documentation Only [facility], [address] [place] [phone] Yrn Lombardo MD [address] [place] [address] Social History Tobacco Use Types Packs/Day Years [...] on filedocumented in this encounter Care Teams Stock Sorter Relationship Specialty Start Date End Date Yrn Lombardo MD PCP - General Internal Medicine 02/19/23 documented as of this encounter
--- OUTSIDE RECORDS SUMMARY | 2024-12-23 10:48 | XMS_ITS ---
Author Name [facility] ([place]) Organization [facility] [place]) Address [address] [place] [address] Support Name Relationship Address Phone DEXTER ALBARRAN Next of Kin [address] [place] [address] [phone] Insurance Providers: All historical and current Section [...] Policy [place] SUPPLEMEN SERGIO MITARYN PATHF MIHAI REG Nov 21, 2022 [id number] MADISON ALBARRAN JR PATIENT [facility] CE [facility]GANIZ [facility] SHARE ACTIV E Oct 21, 2007 [id number] [phone] MADISON ALBARRAN JR N PATIENT [facility] ([id number]) PRESCRIPT ION L4TA* Aug 21, 2008 [id number] MADISON ALBARRAN JR PATIENT MEDICARE (WNR) MEDICARE (M) PART A Nov 21, 2022 PART A [id number] MARYSE ALBARRAN PATIENT MEDICARE (WNR) MEDICARE (M) PART B Nov 21, 2022 PART B [id number] MADISON ALBARRAN JR PATIENT Selected Encounter This section includes the information on record at [place] for the Encounter. Date/Time Encounter Type Encounter Description Reason Provider Source Dec 16, 2024 10:00 AM CONFORMITY EVALUATION AUDIOLOGY ICD-10-CM Z46.1 Encounter for fitting and adjustment of hearing aid NORA FOX [place] Encounter Template Text not used by [place] Assessments - Encounter Diagnoses This section includes the primary and secondary diagnoses documented for the Encounter. Date/Time Primary/Secondary Diagnosis Diagnosis Name Provider Source Dec 16, 2024 10:40 AM PRIMARY Encounter for fitting and adjustment of hearing aid [facility]LY FOX [facility] Dec 16, 2024 10:40 AM SECONDARY Sensorineural hearing loss, bilateral CHARLY FOX [facility] Encounter Notes: All associated encounter notes This section contains the clinical notes associated to the Encounter. Date/Time Encounter Note(s) Provider Source Dec 16, 2024 07:42 AM AUDIOLOGY E & M NOTE: LOCAL TITLE: AUDIOLOGY CLINIC STANDARD TITLE: AUDIOLOGY E & M NOTE DATE OF NOTE: DEC 16, 2024@07:42 ENTRY DATE: DEC 16, 2024@07:42:50 AUTHOR: NORA FOX COSIGNER: URGENCY: STATUS: COMPLETED Dx CODE: Z46.1- Encounter for Fitting/Programming Hearing Aid(s); H90.3- Sensorineural Hearing Loss, Bilateral APPOINTMENT TYPE: Hearing Aid Fitting SUBJECTIVE (S): The patient was seen for hearing aid fitting and issuance. He had previously been evaluated and found to exhibit significant hearing loss for which amplification was recommended. He is a previous user of a left only Guru Deni Edge AI ITE. How does the patient best learn? Verbal instruction, demonstration Does the patient have any cultural and jewish beliefs, emotional barriers, physical or cognitive limitations, and communication barriers which may impact his ability to learn? No Desire and motivation to learn? Good OBJECTIVE (O): Physical fit of hearing aid was good. Patient verified comfort. Verification of an appropriate acoustic response was obtained using Real Ear measurements (speech mapping) and NAL-NL2 targets. The patient reported good subjective benefit as well. Feedback six sigma project manager was run. Hearing aid was found to be meeting targets adequately and MPO was not exceeding estimated UCL. Settings stored in CAROLYNN. ASSESSMENT (A): The following devices were issued: Make: Guru Model: Edge AI ITC Rechargeable Left Serial Number: [id number] Battery size: RECHARGEABLE Warranty ends: 12/20/27 Trial Period ends: 05/19/25 Wax guards: Hear Clear Program(s): Automatic Button(s): n/a Fitting Formula: NAL-NL2 Counseling was completed throughout todays appointment using [...] patient was informed of and signed/agreed to [place] policy on hearing aid issuance: Yes Users are responsible for the maintenance and security of their devices. Determination of need to replace a hearing aid is made by the [place] audit intern. Hearing aids will not be replaced in [...] Education provided to: P Response to Education: LETICIA, WICHO, PI Dai Patient P Family F Significant Other SO Verbalizes Understanding VU Returns Demonstration RD Performs Independently PI Lacks Comprehension LC Refused Education RE Not Applicable NA /miroslava/ NORA FOX STAFF SUPERVISOR INSTANT POTATO PROCESSING Signed: 12/16/2024 10:40 NORA FOX [facility] [place] [facility]
--- OUTSIDE RECORDS SUMMARY | 2024-12-23 10:48 | XMS_ITS | Encounter Summary ---
Author Organization [facility], Address [address] [place] [address] Phone Care Team Providers Care Presser Machine Name Role Phone Yrn Lombardo MD Primary Care Provider Tito daniel Encounter Details Date Type Department Care Team (Late st Contact Info) Description 06/10/2023 Documentation Only [facility], [address] [place] [phone] Antonette Varghese [address] [place] [address] [phone] Social History Tobacco Use Types Packs/Day Years [...] on filedocumented in this encounter Care Teams Presser Machine Relationship Specialty Start Date End Date Yrn Lombardo MD PCP - General Internal Medicine 02/19/23 documented as of this encounter
--- OUTSIDE RECORDS SUMMARY | 2024-12-23 10:48 | XMS_ITS | Clinical Summary ---
Author Organization [facility], Address [address] [place] [address] [place] [address] Phone Care Team Providers Care Roller Inspector And Mender Name Role Phone Yrn Lombardo MD Primary [...] age to complete this topic Insurance MEDICARE [facility] Care Teams Roller Inspector And Mender Relationship Specialty Start Date End Date Yrn Lombardo MD PCP - General Internal Medicine 02/19/23
--- OUTSIDE RECORDS SUMMARY | 2024-12-23 10:48 | XMS_ITS | Continuity of Care Document ---
Author Name [facility] Organization [facility] Care Team Providers Care Radio Interference Investigator Name Role Phone [facility] Unavailable Unavailable Problems Combined list of problems from Department of Defense and [facility] facilities. It does not include entries that were removed or entered in error. 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 Immunization Series Date Given Administered By Site Reaction Lot Number CVX Code Drug Rn Integrated Status Comments Source COVID-19 ([employer]), MRNA, LNP-S, PF, 30 MCG/0.3 ML DOSE 2 2020 208 complet ed PFR; [id number]; 1 [facility] COVID-19 ([employer]), MRNA, LNP-S, PF, 30 MCG/0.3 ML DOSE 1 2020 208 complet ed PFR; [id number]; 1 [facility] Encounters Combined list of: 1) Encounters from Department of Veterans Affairs facilities going backup to the last 18 months, not all [place] inpatient encounters are included; 2) Encounters from the Department of Defense facilities going backup to 280 months. Location Location Details Encounter Type Encounter Number Reason For Visit Attending Provider ADM Date DC Date Status Disposition Source [facility] HEARING AID FITTING/CH ECKING [id number] Diagnos is: ICD-10- CM H90.A32 Mix cndct/s nrl hear loss,un i,l ear w rstrcd hear cntra side SENIOR,AGUSTINA BUSBY L 08/13 [facility] CONFORMITY EVALUATION [id number] Diagnos is: ICD-10- CM Z46.1 Encount er for fitting and adjustm ent of hearing aid ,AGUSTINA BUSBY L 09/11 [facility] HEARING AID REPAIR/MOD IFYING [id number] Diagnos is: ICD-10- CM Z46.1 Encount er for fitting and adjustm ent of hearing aid SENIOR,AGUSTINA BUSBY L 10/23 [facility] HEARING AID REPAIR/MOD IFYING [id number] Diagnos is: ICD-10- CM Z46.1 Encount er for fitting and adjustm ent of hearing aid BENNETT FOX 11/18 [facility] CONFORMITY EVALUATION [id number] Diagnos is: ICD-10- CM Z46.1 Encount er for fitting and adjustm ent of hearing aid BENNETT FOX 12/16 [facility]
--- OUTSIDE RECORDS SUMMARY | 2024-12-23 10:48 | XMS_ITS ---
Author Name [facility] ([place]) Organization [facility] [place] Address [address] [place] [address] Support Name Relationship Address Phone DEXTER ALBARRAN Next of Kin [address] [place] [address] [phone] Insurance Providers: All historical and current Section [...] MITARYN PATHF MIHAI REG Nov 21, 2022 [id number] MADISON ALBARRAN JR PATIENT [facility] CE [facility] SHARE ACTIV E Oct 21, 2007 [id number] MADISON ALBARRAN JR PATIENT [employer] S[employer] ([id number]) PRESCRIPT ION L4TA* Aug 21, 2008 [id number] MADISON ALBARRAN JR PATIENT MEDICARE ([facility]) MEDICARE (M) PART A Nov 21, 2022 PART A [id number] MARYSE ALBARRAN PATIENT MEDICARE ([facility]) MEDICARE (M) PART B Nov 21, 2022 PART B [id number] MADISON ALBARRAN JR PATIENT Selected Encounter This section includes the information on record at [place] for the Encounter. Date/Time Encounter Type Encounter Description Reason Provider Source Nov 18, 2024 08:30 AM HEARING AID REPAIR/MODIFYIN G AUDIOLOGY ICD-10-CM Z46.1 Encounter for fitting and adjustment of hearing aid RUDDYNORA ALSTON [place] Encounter Template Text not used by [place] Assessments - Encounter Diagnoses This section includes the primary and secondary diagnoses documented for the Encounter. Date/Time Primary/Secondary Diagnosis Diagnosis Name Provider Source Nov 18, 2024 08:46 AM PRIMARY Encounter for fitting and adjustment of hearing aid [facility] Nov 18, 2024 08:46 AM SECONDARY Mix cndct/snrl hear loss,uni,l ear w rstrcd hear cntra side [facility] Nov 18, 2024 08:46 AM SECONDARY Snsrnrl hear loss, uni, r ear, with rstrcd hear cntra side TAHIRA FOXBERLY [facility] Plan of Treatment: Future Appointments (+ 6 months) and Future Tests (+/- 45 days) The Plan of Treatment section includes future care activities for the patient from all [place] treatmentfacilities. This section includes future appointments and future orders which are active, pending or scheduled. Future Appointments This section includes appointments that were scheduled to occur 6 months from the date of the Encounter, up to a maximum of 20 appointments. The data comes from all [place] treatment facilities. Appointment Date/Time Appointment Type Appointme nt Facility Name Dec 16, 2024 10:00 AM AMBULATORY - [facility] Encounter Notes: All associated encounter notes This section contains the clinical notes associated to the Encounter. Date/Time Encounter Note(s) Provider Source Nov 18, 2024 07:27 AM AUDIOLOGY E & M NOTE: LOCAL TITLE: AUDIOLOGY CLINIC STANDARD TITLE: AUDIOLOGY E & M NOTE DATE OF NOTE: NOV 18, 2024@07:27 ENTRY DATE: NOV 18, 2024@07:28:04 AUTHOR: NORA FOX COSIGNER: URGENCY: STATUS: COMPLETED AUDIOLOGY CLINIC Has ADDENDA Dx CODE: Z46.1-Encounter for Fitting/Adjusting Hearing Aid(s);H90.A32- Mixed Hearing Loss, Left Ear; H90.A21- Sensorineural Hearing Loss, Right Ear APPOINTMENT TYPE: Hearing Aid Programming HISTORY/BACKGROUND: The patient was seen for a hearing aid follow-up appointment, unaccompanied. He was fit with a left only ReSound Nexia 60 micro NO-R on 09/11/24. Trial period expires: 02/10/25. He is a previous user of a [employer] Edge AI ITE and wants to return to this style hearing aid. HEARING AID CHECK: The old left ITE was cleaned and checked. Microphone covers and wax guard replaced. Listening inspection revealed device was working well. The left ReSound hearing aid was returned for credit. Impression was taken without incident and with 's verbal permission for a new left Guru Edge AI ITC R. PLAN/RECOMMENDATION(S): 1. RTC [...] Applicable NA * /miroslava/ NORA FOX STAFF CORPORATE QUALITY MANAGER Signed: 11/18/2024 08:46 Receipt Acknowledged By: 11/18/2024 09:09 /miroslava/ CHASIDY TENORIO LEAD CONTRACTING ANALYST 11/26/2024 ADDENDUM STATUS: COMPLETED Hearing aid received and certified, upcoming appointment scheduled on 12/16/2024. /miroslava/ MARCELA PECK Audiology Health Contract Associate Signed: 11/26/2024 08:14 NORA FOXRL HEVER REYEZ [facility]
== END 2024-12-23 10:15 | disposition home or self-care (01) ==
PROVIDERS: PCP Family Medicine; Visit Provider Orthopaedic Surgery
DX: S83.241A Other tear of medial meniscus, current injury, right knee, initial encounter (principal)
CPT/HCPCS: 99213; G2211

== ENCOUNTER → 2024-12-23 09:31 | Outpatient (BNVA) | payer MEDICARE, SELFPAY | PROVIDERS: PCP Family Medicine; Visit Provider Orthopaedic Surgery | DX: S83.241A Other tear of medial meniscus, current injury, right knee, initial encounter (principal); X58.XXXA Exposure to other specified factors, initial encounter; Y93.9 Activity, unspecified; Y92.9 Unspecified place or not applicable; Y99.9 Unspecified external cause status | CPT/HCPCS: 99212 ==

== ENCOUNTER 2025-01-15 06:50 | Day surgery (SDC) | payer MEDICARE, SELFPAY ==
--- OUTSIDE RECORDS SUMMARY | 2024-12-23 15:59 | XMS_ITS | Encounter Summary ---
Author Organization [facility] Address [address] [place] [address] Phone Care Team Providers Care Physical Therapy Assistant Instructor Name Role Phone Yrn Lombardo MD Primary Care Provider Tito daniel Encounter Details Date Type Department Care Team (Late st Contact Info) Description 02/19/2023 Documentation Only [facility], [address] [place] [phone] Yrn Lombardo MD [address] [place] [address] Social History Tobacco Use Types Packs/Day Years [...] on filedocumented in this encounter Care Teams Physical Therapy Assistant Instructor Relationship Specialty Start Date End Date Yrn Lombardo MD PCP - General Internal Medicine 02/19/23 documented as of this encounter
--- OUTSIDE RECORDS SUMMARY | 2024-12-23 15:59 | XMS_ITS | Encounter Summary ---
Author Organization [facility], Address [address] [place] [address] Phone Care Team Providers Care Forming Roll Operator Name Role Phone Yrn Lombardo MD Primary Care Provider Tito daniel Encounter Details Date Type Department Care Team (Late st Contact Info) Description 04/24/2023 Documentation Only [facility], [address] [place] [phone] Antonette Varghese [address] [place] [address] [phone] Social History Tobacco Use Types Packs/Day Years [...] on filedocumented in this encounter Care Teams Forming Roll Operator Relationship Specialty Start Date End Date Yrn Lombardo MD PCP - General Internal Medicine 02/19/23 documented as of this encounter
--- OUTSIDE RECORDS SUMMARY | 2024-12-23 15:59 | XMS_ITS | Clinical Summary ---
Author Organization [facility], Address [address] [place] [address] [place] [address] Phone Care Team Providers Care Game Engineer Name Role Phone Yrn Lombardo MD Primary [...] topic Insurance MEDICARE [facility] Care Teams Game Engineer Relationship Specialty Start Date End Date Yrn Lombardo MD PCP - General Internal Medicine 02/19/23
--- OUTSIDE RECORDS SUMMARY | 2024-12-23 15:59 | XMS_ITS | Encounter Summary ---
Author Organization [facility], Address [address] [place] [address] Phone Care Team Providers Care Product Steward Name Role Phone Yrn Lombardo MD Primary Care Provider Tito daniel Encounter Details Date Type Department Care Team (Late st Contact Info) Description 06/10/2023 Documentation Only [facility], [address] [place] [phone] Antonette Varghese [address] [place] [phone] Social History Tobacco Use Types Packs/Day Years [...] on filedocumented in this encounter Care Teams Product Steward Relationship Specialty Start Date End Date Yrn Lombardo MD PCP - General Internal Medicine 02/19/23 documented as of this encounter
--- OUTSIDE RECORDS SUMMARY | 2024-12-23 15:59 | XMS_ITS | Continuity of Care Document ---
Author Name [facility] Organization [facility] Care Team Providers Care Christian Science Practitioner Name Role Phone [facility] Unavailable Unavailable Problems Combined list of problems from Department of Defense and [facility] facilities. It does not include entries that were removed or entered in error. Problem Status Onset Date Problem Type Date of Resolution Comments Source Diagnosis: ICD-10-CM Z46.1 Encounter for fitting and adjustment of hearing aid Active Diagnosis [facility] [place] [facility] Diagnosis: ICD-10-CM H90.A32 Mix cndct/snrl hear loss,uni,l ear w rstrcd hear cntra side Active Diagnosis [facility] [place] [facility] Immunizations Combined list of available immunizations from the Department of Defense and [facility] facilities. Immunization Series Date Given Administered By Site Reaction Lot Number CVX Code Drug Timing Machine Operator Status Comments Source COVID-19 ([employer]), MRNA, LNP-S, PF, 30 MCG/0.3 ML DOSE 2 2020 208 complet ed PFR; [id number]; 1 [facility] COVID-19 ([facility] [employer] [facility]), MRNA, LNP-S, PF, 30 MCG/0.3 ML DOSE 1 2020 208 complet ed PFR; [id number]; 1 [facility] Encounters Combined list of: 1) Encounters from Department of Veterans Affairs facilities going backup to the last 18 months, not all [place] inpatient encounters are included; 2) Encounters from the Department of Defense facilities going backup to 280 months. Location Location Details Encounter Type Encounter Number Reason For Visit Attending Provider ADM Date DC Date Status Disposition Source [facility] HEARING AID FITTING/CH ECKING [id number] Diagnos is: ICD-10- CM H90.A32 Mix cndct/s nrl hear loss,un i,l ear w rstrcd hear cntra side SENIOR,AGUSTINA BUSBY L 08/13 [facility] CONFORMITY EVALUATION [id number] Diagnos is: ICD-10- CM Z46.1 Encount er for fitting and adjustm ent of hearing aid ,AGUSTINA BUSBY L 09/11 [facility] HEARING AID REPAIR/MOD IFYING [id number] Diagnos is: ICD-10- CM Z46.1 Encount er for fitting and adjustm ent of hearing aid SENIOR,AGUSTINA BUSBY L 10/23 [facility] HEARING AID REPAIR/MOD IFYING [id number] Diagnos is: ICD-10- CM Z46.1 Encount er for fitting and adjustm ent of hearing aid BENNETT FOX 11/18 [facility] CONFORMITY EVALUATION [id number] Diagnos is: ICD-10- CM Z46.1 Encount er for fitting and adjustm ent of hearing aid BENNETT FOX 12/16 [facility]
--- NOTE | 2025-01-13 14:10 | HO.ANESPROP2 ---
Documented by User: Hollie Boland NP 01/13/25 14:11 HPI - Anesthesia Eval Consult details Narrative: 69yo M for Right Knee Arthroscopy,partial medial and lateral meniscectomy PMFSH Active Problems Active Problems: All Active Problems Family relationship problem (Acute) Right knee pain (Acute) Tear of medial meniscus of right knee (Acute) Relationship dysfunction (Acute) Pre-diabetes (Acute) Knee pain (Acute) Hearing loss (Acute) Elevated serum creatinine (Acute) Mild anemia (Acute) Adult general medical exam (Acute) Screening for prostate cancer (Acute) Screening for colon cancer (Acute) Elevated fasting glucose (Acute) History of basal cell cancer (Acute) Abdominal hernia (Acute) Anxiety (Acute) Laboratory exam ordered as part of routine general medical examination (Acute) Low vitamin D level (Acute) AMINAH (obstructive sleep apnea) (Acute) High cholesterol (Acute) Hypertension (Acute) Past Medical History Medical History High cholesterol Hypertension Sinusitis Family History Family History Father Hypertension High cholesterol Surgical History Surgical History History of bilateral carpal tunnel release (~12/2018) History of left hip replacement (~04/2016) Hx of colonoscopy (~03/2023) Social History Social History Household Members: Spouse Housing: House Are you a primary customer care professional to a significant other at home: No Do you presently have visiting nurse or other home services: No Patient Tobacco Use Status: Former Tobacco user Tobacco use type: Cigarette Years Smoked: 25 Smoked in Last 30 Days: No e-Cigarette/Vaping Use: Never Used Use of substances other than those prescribed or required for medical reasons: No Have you been hit, kicked, punched, or otherwise hurt by someone within the past year? If so, by whom?: No Are you DNR?: No Advance Directives: No Advance Directives Information Provided: No Advance Directives on File: No Recently lost weight without trying: No How much weight loss: Not applicable Eating poorly because of decreased appetite: No Nutrition screen score: 0 Nutrition Risks: No Nutritional Risk Poor oral hygiene: Yes (missing teeth) Current occupational status: retired Cognitive needs: No Hearing needs: Yes (left hearing aid) Vision needs: Yes Meds Allergies Allergy/AdvReac Type Severity Reaction Status Date / Time No Known Allergies Allergy Verified 01/15/25 07:20 Active Medications: Current Medications Cefazolin Sodium/Dextrose (Ancef) 2 gm in 50 mls @ 100 mls/hr IV PREOP ONE Stop: 01/15/25 05:30 Home Medications ?Medication ?Instructions ?Recorded ?Confirmed ?Last Taken ?Type CPAP (CPAP Machine/Device) 01/02/24 01/15/25 Unknown History Assessment and Plan Assessment Anesthesia Assessment: Chart Reviewed Documented by User: Leigh De Guzman MD 01/15/25 07:47 PMFSH Past Medical History Medical History High cholesterol Hypertension Sinusitis Family History Family History Father Hypertension High cholesterol Family history of problems with anesthesia: No Surgical History Surgical History History of bilateral carpal tunnel release (~12/2018) History of left hip replacement (~04/2016) Hx of colonoscopy (~03/2023) History of Problems with Anesthesia: No Social History Social History Household Members: Spouse Housing: House Are you a primary customer care professional to a significant other at home: No Do you presently have visiting nurse or other home services: No Patient Tobacco Use Status: Former Tobacco user Tobacco use type: Cigarette Years Smoked: 25 Smoked in Last 30 Days: No e-Cigarette/Vaping Use: Never Used Use of substances other than those prescribed or required for medical reasons: No Have you been hit, kicked, punched, or otherwise hurt by someone within the past year? If so, by whom?: No Are you DNR?: No Advance Directives: No Advance Directives Information Provided: No Advance Directives on File: No Recently lost weight without trying: No How much weight loss: Not applicable Eating poorly because of decreased appetite: No Nutrition screen score: 0 Nutrition Risks: No Nutritional Risk Poor oral hygiene: Yes (missing teeth) Current occupational status: retired Cognitive needs: No Hearing needs: Yes (left hearing aid) Vision needs: Yes Meds Allergies Allergy/AdvReac Type Severity Reaction Status Date / Time No Known Allergies Allergy Verified 01/15/25 07:20 Home Medications ?Medication ?Instructions ?Recorded ?Confirmed ?Last Taken ?Type CPAP (CPAP Machine/Device) 01/02/24 01/15/25 Unknown History Exam Airway Mallampati Class: III TM Dist: >3cm Neck ROM: Full Heart: rrr Lungs: cta Assessment and Plan Assessment Anesthesia Assessment: Anesthesia Plan Discussed Final Anesthetic Review Family History of Problems with Anesthesia: No History of Problems with Anesthesia: No NPO: Yes ASA Class: III Final Preanesthetic Review: No Changes in Pt Med Stat, Meds/Allgs Chart Reviewed, Consent Obtained/Reviewed and Anes Risks/Benef Reviewed Patient Risk: Intermediate Procedure Risk: Low Anesthetic Plan Anesthetic Plan: GA Disposition: Standard PACU
[2025-01-15 07:32] VITALS: BMI 35.0
[2025-01-15 07:45] VITALS: BP 146/62; PULSE 67; RESP 16; TEMP 36.9; O2SAT 97
[2025-01-15] MEDS: Lactated Ringers 1,000 ML 100 ML IVCONT (07:53)
[2025-01-15] MEDS: ceFAZolin Sodium/Dextrose,Iso 2 GM/50 ML PIGGYBACK IV (08:50)
[2025-01-15] MEDS: Acetaminophen 1,000 MG/100 ML PIGGYBACK 400 MG IV (08:55)
[2025-01-15 09:35] VITALS: BP 137/69; PULSE 64; RESP 18; TEMP 36.1; O2SAT 93
[2025-01-15 09:40] VITALS: BP 133/67; PULSE 67; RESP 16; O2SAT 94
[2025-01-15 09:45] VITALS: BP 135/69; PULSE 66; RESP 16; O2SAT 95
[2025-01-15 09:50] VITALS: BP 150/72; PULSE 62; RESP 16; O2SAT 94
--- NOTE | 2025-01-15 09:50 | P.BOP_ITS ---
Brief Operative Note Date of Service: 01/15/25 Pre-op diagnosis: Right knee medial and lateral meniscus tears, right knee degenerative joint disease Post-op diagnosis: same Procedure: Right knee diagnostic arthroscopy with right knee arthroscopic partial medial and lateral meniscectomies, right knee arthroscopic chondroplasty of the undersurface of the patella as well as the medial femoral condyle Implants: None Surgeon: Arturo Rowe MD Anesthesia: GLMA Was an Sales Manager Prearranged Funerals used for this Procedure?: No Estimated blood loss (mL): 10 Pathology: none sent Condition: stable Disposition: PACU
--- NOTE | 2025-01-15 09:51 | W.PM.OPN ---
Operative Note Operative Note Date of Service: 01/15/25 Narrative: After the patient was identified as Mihai Jimenez and his right knee was initialed by myself they were brought to the operating room where general anesthesia was induced by the anesthesiologist in routine fashion. The patient was given 2 g of IV Ancef for infection prophylaxis. A formal time-out was completed. The patient's right lower extremity was prepped and draped in sterile fashion. Marcaine with epinephrine was injected into the planned incision sites as well as their right knee joint. A # 11 scalpel blade was used to make an anterolateral portal 1 cm proximal to the joint line and 1 cm lateral to the patellar tendon. Blunt trocar technique was used into the suprapatellar pouch with the knee in extension. Diagnostic arthroscopy showed multiple bands of thickened plica which would be excised at the end of the procedure. There were no loose bodies or abnormalities found in either the medial or lateral gutters. There were diffuse grade 2 degenerative changes of the undersurface of the patella as well as grade 1 degenerative changes of the trochlear groove. The patient's knee was flexed to 45 degrees and a valgus force was placed upon it. The medial compartment was entered. An anteromedial portal was made 1 cm proximal to the joint line and 1 cm medial to the patellar tendon. Probing of the medial meniscus showed a radial tear of the posterior horn. A partial medial meniscectomy was performed using the arthroscopic shaver. Following the partial meniscectomy the remainder of the meniscus tissue was stable. There were diffuse grades 2 and 3 degenerative changes of the medial femoral condyle as well as diffuse grade 1 degenerative changes of the medial tibial plateau. The articular surface of the medial femoral condyle was made smooth using the arthroscopic shaver. The articular surface of the medial tibial plateau was already smooth so no chondroplasty was indicated. The patient's knee was then placed into a neutral position. There was no injury to the anterior cruciate ligament. The patient's knee was then placed into the figure of 4 position and the lateral compartment was entered. There were minimal degenerative changes of the lateral femoral condyle and lateral tibial plateau. There was a radial tear of the anterior horn of the lateral meniscus. A partial lateral meniscectomy was performed using the arthroscopic shaver. Following the partial meniscectomy the remainder of the meniscus tissue was stable. The patient's knee was once again brought into extension and the suprapatellar pouch was entered. The arthroscopic shaver and the ArthroCare Wand were used to excise the thickened bands of plica. The undersurface of the patella was then made smooth using the arthroscopic shaver. The articular surface of the trochlear groove was already smooth so no chondroplasty was indicated. The knee joint was irrigated and then drained. All arthroscopic instruments were removed. The 2 portals were closed with 3-0 nylon interrupted suture. The knee joint was injected with Marcaine. Dry sterile dressing and Butch bandages were placed over the patient's knee. The patient was awoken and extubated in the operating room. They were transferred to the recovery room in stable condition.
[2025-01-15] MEDS: cefTRIAXone sodium 1 GM VIAL IVPUSH (09:57)
[2025-01-15 10:05] VITALS: BP 139/70; PULSE 61; RESP 16; O2SAT 95
== END 2025-01-15 10:59 | disposition home or self-care (01) ==
PROVIDERS: PCP Family Medicine; Visit Provider Orthopaedic Surgery
PROC: (CPT 29870; principal; 2025-01-15 09:10)
DX: S83.241A Other tear of medial meniscus, current injury, right knee, initial encounter (principal); S83.281A Other tear of lateral meniscus, current injury, right knee, initial encounter; M17.11 Unilateral primary osteoarthritis, right knee; M25.561 Pain in right knee; M23.51 Chronic instability of knee, right knee; M67.51 Plica syndrome, right knee; I10 Essential (primary) hypertension; E78.00 Pure hypercholesterolemia, unspecified; J32.9 Chronic sinusitis, unspecified; Z79.899 Other long term (current) drug therapy; Z99.89 Dependence on other enabling machines and devices; Z87.891 Personal history of nicotine dependence; Z98.890 Other specified postprocedural states; X58.XXXA Exposure to other specified factors, initial encounter; Y93.9 Activity, unspecified; Y92.9 Unspecified place or not applicable; Y99.9 Unspecified external cause status
CPT/HCPCS: 29880; 29876; J0131; J0171; J0690; J0696; J1100; J1885; J2003; J2250; J2405; J2704; J2795; J3010

== ENCOUNTER → 2025-01-15 06:50 | Outpatient (BNV) | payer MEDICARE, SELFPAY | PROVIDERS: PCP Family Medicine; Visit Provider Orthopaedic Surgery | DX: S83.241A Other tear of medial meniscus, current injury, right knee, initial encounter (principal); S83.281A Other tear of lateral meniscus, current injury, right knee, initial encounter | CPT/HCPCS: 29880 ==

== ENCOUNTER 2025-01-28 11:32 | Outpatient (AMB) | payer MEDICARE, SELFPAY ==
--- NOTE | 2025-01-28 11:37 | A.OFFVIS_ITS ---
Vital Signs 01/28/25 11:42 Height 5 ft 9 in Weight 236 lb BMI 34.8 Intake Visit Reasons: PO RT knee 01/15/25 Intake Note: Mihai is a 69 year old male who presents today post-operatively after undergoing a right knee arthroscopy on 01/15/25. Patient reports he is doing well. He is no longer taking anything for pain. Allergies No Known Allergies Allergy (Verified 01/28/25 11:41) Medication List - Last Reconciled 01/28/25 by Arturo Rowe MD amlodipine 10 mg PO DAILY 90 days carvedilol 12.5 mg PO BID 90 days cholecalciferol (vitamin D3) 50 mcg PO DAILY 90 days CPAP (CPAP Machine/Device) As directed hydralazine 50 mg PO TID 90 days lisinopril 40 mg PO DAILY 90 days lovastatin 20 mg PO DAILY 90 days [facility] Medical History High cholesterol Hypertension Sinusitis Surgical History History of bilateral carpal tunnel release (~12/2018) History of left hip replacement (~04/2016) Hx of colonoscopy (~03/2023) Family History Father Hypertension High cholesterol Social History Household Members: Spouse Housing: House Are you a primary hemodialysis patient care specialist to a significant other at home: No Do you presently have visiting nurse or other home services: No Patient Tobacco Use Status: Former Tobacco user Tobacco use type: Cigarette Years Smoked: 25 e-Cigarette/Vaping Use: Never Used Current occupational status: retired Cognitive needs: No Hearing needs: Yes (left hearing aid) Vision needs: Yes Physical Exam Vital Signs: BMI result Body Mass Index 34.8 Extrem Other: Right knee examination shows that the surgical incisions are healing well, no erythema, minimal discomfort with range of motion, no instability Assessment & Plan Assessment & Plan (1) Right knee pain: Code(s): M25.561 - Pain in right knee Category: Medical Plan Mr. Jimenez is doing very well after undergoing right knee arthroscopic surgery on 01/15/2025. His sutures were removed and Steri-Strips placed over his incisions. He will continue to progress to activities as tolerated. He will follow up with me on an as-needed basis should his symptoms not plateau at an unacceptable level over the next few months. Feel free to call me at any time should questions regarding his orthopedic management arise. Coding Level of Care Code Global (19438) Diagnoses Right knee pain M25.561
[2025-01-28 11:42] VITALS: BMI 34.8
--- OUTSIDE RECORDS SUMMARY | 2025-01-28 14:04 | XMS_ITS | Encounter Summary ---
Author Name [facility] ([place]) Organization [facility] ([place]) Address [address] [place] [id number] Support Name Relationship Address Phone DEXTER ALBARRAN Next of Kin [address] [place] [address] [phone] Insurance Providers: All historical and current Section [...] MITARYN PATHF MIHAI REG Nov 21, 2022 [id number] MADISON ALBARRAN JR PATIENT [facility] CE ORGANIZ [facility] SHARE ACTIV E Oct 21, 2007 [id number] MADISON ALBARRAN JR N PATIENT [employer] ([id number]) PRESCRIPT ION L4TA* Aug 21, 2008 [id number] MADISON ALBARRAN JR PATIENT MEDICARE (WNR) MEDICARE (M) PART A Nov 21, 2022 PART A [id number] MARYSE ALBARRAN PATIENT MEDICARE (WNR) MEDICARE (M) PART B Nov 21, 2022 PART B [id number] MADISON ALBARRAN JR PATIENT Selected Encounter This section includes the information on record at ID for the Encounter. Date/Time Encounter Type Encounter Description Reason Provider Source Sep 11, 2024 09:00 AM CONFORMITY EVALUATION AUDIOLOGY ICD-10-CM Z46.1 Encounter for fitting and adjustment of hearing aid MELANI DAO Antwan [facility] Encounter Template Text not used by ID Assessments - Encounter Diagnoses This section includes the primary and secondary diagnoses documented for the Encounter. 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 This section includes future appointments and future orders which are active, pending or scheduled. Future Appointments This section includes appointments that were scheduled to occur 6 months from the date of the Encounter, up to a maximum of 20 appointments. The data comes from all ID treatment facilities. Appointment Date/Time Appointment Type Appointme nt Facility Name Oct 23, 2024 01:30 PM AMBULATORY - REHAB MEDICIN E ID [facility] [place] [facility] Nov 18, 2024 08:30 AM AMBULATORY - REHAB MEDICIN E ID [facility] [place] [facility] Dec 16, 2024 10:00 AM AMBULATORY - REHAB MEDICIN E ID [facility] [place] [facility] Encounter Notes: All associated encounter notes This section contains the clinical notes associated to the Encounter. Date/Time Encounter Note(s) Provider Source Sep 11, 2024 07:34 AM AUDIOLOGY E & M NO TE: [facility] TITLE: AUDIOLOGY CLINIC STANDARD TITLE: AUDIOLOGY E & M NOTE DATE OF NOTE: SEP 11, 2024@07:34 ENTRY DATE: SEP 11, 2024@07:34:13 AUTHOR: MELANI DAO COSIGNER: URGENCY: STATUS: COMPLETED [...] Does the patient have any cultural and congregation beliefs, emotional barriers, physical or cognitive limitations, and communication barriers which may impact his ability to learn? No Desire and motivation to learn? Good OBJECTIVE (O): Physical fit of hearing aids was good. Patient verified comfort. Verification of an appropriate acoustic response was obtained using Real Ear measurements (speech mapping) and NAL-NL2 targets. The patient reported good subjective benefit as well. Feedback green house manager was run. Hearing aids were found to be meeting targets adequately and MPO was not exceeding estimated UCL. Settings stored in [facility]. ASSESSMENT (A): The following devices were issued: Make: GN RESOUND Model: NEXIA 60 MICRO NO-R Right Serial Number: NONE Left Serial Number: [id number] Battery size: Rechargeable Warranty ends: 09/13/27 Trial Period ends: 02/10/25 Domes/wax guards: GN Wax Filter, Large power dome Linen Clerk size/power: Size 2 HP Program(s): Automatic Button(s): Short press= Volume Up Long press= Volume Down Extra-long press= Power on/off Fitting Formula: NAL-NL2 Remote Programming: HAs are capable Bluetooth: will pair on own Counseling was completed [...] patient was informed of and signed/agreed to ID policy on hearing aid issuance: Yes Users are responsible for the maintenance and security of their devices. Determination of need to replace a hearing aid is made by the ID food service agent. Hearing aids will not be replaced in [...] Education RE Not Applicable NA /NOLAN Sheriff, MARIELA-A STAFF PRECINCT CAPTAIN Signed: 09/11/2024 09:30 09/11/2024 ADDENDUM STATUS: COMPLETED 's 2020 Guru aid was sent for repair today due to excessive battery drain. The repaired device will be mailed back to his address on file via [facility]. /NOLAN Sheriff, MARIELA-A STAFF PRECINCT CAPTAIN Signed: 09/11/2024 09:31 MELANI DAO [facility]
--- OUTSIDE RECORDS SUMMARY | 2025-01-28 14:04 | XMS_ITS | Encounter Summary ---
Author Organization [facility] Address [address] [place] [address] Phone Care Team Providers Care Chalk Tester Name Role Phone Yrn Lombardo MD Primary Care Provider Tito daniel Encounter Details Date Type Department Care Team (Late st Contact Info) Description 02/19/2023 Documentation Only [facility], [address] [place] [phone] Yrn Lombardo MD [address] [place] [address] Social History Tobacco Use Types Packs/Day Years [...] on filedocumented in this encounter Care Teams Chalk Tester Relationship Specialty Start Date End Date Yrn Lombardo MD PCP - General Internal Medicine 02/19/23 documented as of this encounter
--- OUTSIDE RECORDS SUMMARY | 2025-01-28 14:04 | XMS_ITS ---
Author Name [facility] ([place]) Organization [facility] ([place]) Address [address] [place] [id number] Support Name Relationship Address Phone DEXTER ALBARRAN Next of Kin [address] [place] [address] [phone] Insurance Providers: All historical and current Section [...] MITARYN PATHF MIHAI REG Nov 21, 2022 [id number] [phone] MADISON ALBARRAN JR PATIENT [facility] CE ORGANIZ [facility] SHARE ACTIV E Oct 21, 2007 [id number] [phone] MADISON ALBARRAN JR PATIENT [employer] ([id number]) PRESCRIPT ION L4TA* Aug 21, 2008 [id number] MADISON ALBARRAN JR PATIENT MEDICARE ([facility]) MEDICARE (M) PART A Nov 21, 2022 PART A [id number] MARYSE ALBARRAN PATIENT MEDICARE ([facility]) MEDICARE (M) PART B Nov 21, 2022 PART B [id number] MADISON ALBARRAN JR PATIENT Selected Encounter This section includes the information on record at [place] for the Encounter. Date/Time Encounter Type Encounter Description Reason Provider Source Aug 13, 2024 09:00 AM HEARING AID FITTING/CHECKING AUDIOLOGY ICD-10-CM H90.A32 Mix cndct/snrl hear loss,uni,l ear w rstrcd hear cntra side MELANI DAO E Encounter Template Text not used by [place] Assessments - Encounter Diagnoses This section includes the primary and secondary diagnoses documented for the Encounter. Date/Time Primary/Secondary Diagnosis Diagnosis Name Provider Source Aug 13, 2024 05:19 PM PRIMARY Mix cndct/snrl hear loss,uni,l ear w rstrcd hear cntra side MELANI DAO [place] [facility] Aug 13, 2024 05:19 PM SECONDARY Snsrnrl hear loss, uni, r ear, with rstrcd hear cntra side MELANI DAO [place] [facility] Aug 13, 2024 05:19 PM SECONDARY Tinnitus, bilateral MELANI DAO [place] [facility] Plan of Treatment: Future Appointments (+ 6 months) and Future Tests (+/- 45 days) The Plan of Treatment section includes future care activities for the patient from all [place] [facility]. This section includes future appointments and future orders which are active, pending or scheduled. Future Appointments This section includes appointments that were scheduled to occur 6 months from the date of the Encounter, up to a maximum of 20 appointments. The data comes from all [place] treatment facilities. Appointment Date/Time Appointment Type Appointme nt Facility Name Sep 11, 2024 09:00 AM AMBULATORY - REHAB MEDICIN E [place] [facility] [place] [facility] Oct 23, 2024 01:30 PM AMBULATORY - REHAB MEDICIN E [place] [facility] [place] [facility] Nov 18, 2024 08:30 AM AMBULATORY - REHAB MEDICIN E [place] [facility] [place] [facility] Dec 16, 2024 10:00 AM AMBULATORY - REHAB MEDICIN E [place] [facility] [place] [facility] Encounter Notes: All associated encounter notes This [...] Hearing Re-Evaluation and Hearing Aid Selection BACKGROUND/HISTORY: [place] was seen today for a hearing re-evaluation [...] his hearing has declined somewhat since then. 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 He received medical clearance for amplification for a left hearing aid from Dr. Mary Bae (aka Dr. Mary Landa, now of the [place]), [facility] on 09/20/16. [place] reports bilateral tinnitus which is more pronounced [...] sloping to a moderate hearing loss from 0051-6890 Hz. Testing in the left ear revealed [...] SELECTION: Different hearing aid options were discussed. notes that he preferred his older Resound NO aid over the in-the-ear style. He denies having a pacemaker and would like to continue with a rechargeable devices. He is interested in savana use with his Android phone. [place] was advised that a custom earmold is recommended, however due to comfort concerns he would first like to try a dome. A left only GN RESOUND NEXIA 60 MICRO NO-R was selected and ordered in RO with a size 2 HP receiver/laborer and power dome. EDUCATION/COUNSELING: The patient was [...] Not Applicable NA Suicide Screen: C-SSRS Screening Summers-Suicide Severity Rating Scale (C-SSRS Screener) 1. Over [...] required due to responses to other questions. /miroslava/ NOLAN DANIELLE, [facility]-A STAFF PRIMER WATERPROOFING MACHINE ADJUSTER Signed: 08/13/2024 17:20 Receipt Acknowledged By: 08/14/2024 07:44 /miroslava/ CHASIDY TEONRIO LEAD MATCH MAKER 08/17/2024 ADDENDUM STATUS: COMPLETED Hearing aid received and certified, upcoming appointment scheduled on 09/11/2024. /miroslava/ MARCELA PECK [facility] Guest Services Ambassador Signed: 08/17/2024 15:19 MELANI DAO [facility]
--- OUTSIDE RECORDS SUMMARY | 2025-01-28 14:05 | XMS_ITS | Encounter Summary ---
Author Organization [facility], Address [address] [place] [address] Phone Care Team Providers Care Blanker Press Operator Name Role Phone Yrn Lombardo MD Primary Care Provider Tito daniel Encounter Details Date Type Department Care Team (Late st Contact Info) Description 04/24/2023 Documentation Only [facility], [address] [place] [phone] Antonette Varghese [address] [place] [phone] Social History Tobacco Use Types Packs/Day Years [...] on filedocumented in this encounter Care Teams Blanker Press Operator Relationship Specialty Start Date End Date Yrn Lombardo MD PCP - General Internal Medicine 02/19/23 documented as of this encounter
--- OUTSIDE RECORDS SUMMARY | 2025-01-28 14:05 | XMS_ITS ---
Author Name [facility] of [facility] ([place]) Organization Department of [facility] ([place]) Address [address] [place] [address] Support Name Relationship Address Phone DEXTER ALBARRAN Next of Kin [address] [place] [address] [phone] Insurance Providers: All historical and current Section [...] MITARYN PATHF MIHAI REG Nov 21, 2022 [id number] MADISON ALBARRAN JR PATIENT [facility] CE ORGANIZ [facility] SHARE ACTIV E Oct 21, 2007 [id number] MADISON ALBARRAN JR N PATIENT [employer] ([id number]) PRESCRIPT ION L4TA* Aug 21, 2008 [id number] MADISON ALBARRAN JR PATIENT MEDICARE (WNR) MEDICARE (M) PART A Nov 21, 2022 PART A [id number] MARYSE ALBARRAN PATIENT MEDICARE (WNR) MEDICARE (M) PART B Nov 21, 2022 PART B [id number] MADISON ALBARRAN JR PATIENT Selected Encounter This section includes the information on record at [place] for the Encounter. Date/Time Encounter Type Encounter Description Reason Provider Source Dec 16, 2024 10:00 AM CONFORMITY EVALUATION AUDIOLOGY ICD-10-CM Z46.1 Encounter for fitting and adjustment of hearing aid NORA FOX [place] Encounter Template Text not used by [place] Assessments - Encounter Diagnoses This section includes the primary and secondary diagnoses documented for the Encounter. Date/Time Primary/Secondary Diagnosis Diagnosis Name Provider Source Dec 16, 2024 10:40 AM PRIMARY Encounter for fitting and adjustment of hearing aid [facility] Dec 16, 2024 10:40 AM SECONDARY Sensorineural hearing loss, bilateral [facility]LY [facility] Encounter Notes: All associated encounter [...] Does the patient have any cultural and synagogue beliefs, emotional barriers, physical or cognitive limitations, and communication barriers which may impact his ability to learn? No Desire and motivation to learn? Good OBJECTIVE (O): Physical fit of hearing aid was good. Patient verified comfort. Verification of an appropriate acoustic response was obtained using Real Ear measurements (speech mapping) and NAL-NL2 targets. The patient reported good subjective benefit as well. Feedback dental office manager was run. Hearing aid was found to be meeting targets adequately and MPO was not exceeding estimated UCL. Settings stored in CAROLYNN. ASSESSMENT (A): The following devices were issued: Make: Guru Model: Edge AI ITC Rechargeable Left Serial Number: [id number] Battery size: RECHARGEABLE Warranty ends: 12/20/27 Trial [...] patient was informed of and signed/agreed to [place] policy on hearing aid issuance: Yes Users are responsible for the maintenance and security of their devices. Determination of need to replace a hearing aid is made by the [place] reinsurance claims analyst. Hearing aids will not be replaced in [...] Not Applicable NA /miroslava/ NORA FOX STAFF WRAPPER SHEETER Signed: 12/16/2024 10:40 NORA FOX [facility] [place] [facility]
--- OUTSIDE RECORDS SUMMARY | 2025-01-28 14:05 | XMS_ITS | Continuity of Care Document ---
Author Name [facility] Organization [facility] Care Team Providers Care Warehouse Puller Name Role Phone [facility] Unavailable Unavailable Problems Combined list of problems from Department of Defense and Veterans [facility] facilities. It does not include entries that were removed or entered in error. Problem Status Onset Date Problem Type Date of Resolution Comments Source Diagnosis: ICD-10-CM Z46.1 Encounter for fitting and adjustment of hearing aid Active Diagnosis [facility] [place] [facility] Diagnosis: ICD-10-CM H90.A32 Mix cndct/snrl hear loss,uni,l ear w rstrcd hear cntra side Active Diagnosis [facility] [place] [facility] Immunizations Combined list of available immunizations from the Department of Defense and Veterans [facility] facilities. Immunization Series Date Given Administered By Site Reaction Lot Number CVX Code Drug Customs Import Specialist Status Comments Source COVID-19 (AlertMe), MRNA, LNP-S, PF, 30 MCG/0.3 ML DOSE 2 2020 208 complet ed PFR; [id number]; 1 [facility] [place] [facility] [facility] COVID-19 (AlertMe), MRNA, LNP-S, PF, 30 MCG/0.3 ML DOSE 1 2020 208 complet ed PFR; [id number]; 1 [facility] Encounters Combined list of: 1) Encounters from Department of Veterans Affairs facilities going backup to the last 18 months, not all [place] inpatient encounters are included; 2) Encounters from the Department of Defense facilities going backup to 280 months. Location Location Details Encounter Type Encounter Number Reason For Visit Attending Provider ADM Date DC Date Status Disposition Source [facility] [place] [facility] HEARING AID FITTING/CH ECKING [id number] Diagnos is: ICD-10- CM H90.A32 Mix cndct/s nrl hear loss,un i,l ear w rstrcd hear cntra side SENIOR,AGUSTINA BUSBY L 08[facility]13 [facility] [place] [facility] [facility] CONFORMITY EVALUATION [id number] Diagnos is: ICD-10- CM Z46.1 Encount er for fitting and adjustm ent of hearing aid ,AGUSTINA BUSBY L 09/11 [facility] [place] [facility] [facility] [place] HEARING AID REPAIR/MOD IFYING [id number] Diagnos is: ICD-10- CM Z46.1 Encount er for fitting and adjustm ent of hearing aid SENIOR,AGUSTINA BUSBY L 10/23 [facility] [place] [facility] [facility] [place] [facility] HEARING AID REPAIR/MOD IFYING [id number] Diagnos is: ICD-10- CM Z46.1 Encount er for fitting and adjustm ent of hearing aid BENNETT FOX 11/18 [facility] [place] [facility] [facility] [place] [facility] CONFORMITY EVALUATION [id number] Diagnos is: ICD-10- CM Z46.1 Encount er for fitting and adjustm ent of hearing aid BENNETT FOX 12/16 [facility] [place] [facility]
--- OUTSIDE RECORDS SUMMARY | 2025-01-28 14:05 | XMS_ITS ---
Author Name [facility] ([place]) Organization [facility] of [facility] ([place]) Address [address] [place] [address] Support Name Relationship Address Phone DEXTER ALBARRAN Next of Kin [address] [place] [address] [phone] Insurance Providers: All historical and current Section [...] MITARYN PATHF MIHAI REG Nov 21, 2022 [id number] MADISON ALBARRAN JR PATIENT [facility] CE ORGANIZ [facility] SHARE ACTIV E Oct 21, 2007 [id number] [phone] MADISON ALBARRAN JR PATIENT [employer] ([id number]) PRESCRIPT ION L4TA* Aug 21, 2008 TA [id number] MADISON ALBARRAN JR PATIENT MEDICARE ([facility]) MEDICARE (M) PART A Nov 21, 2022 PART A [id number] MARYSE ALBARRAN PATIENT MEDICARE ([facility]) MEDICARE (M) PART B Nov 21, 2022 PART B [id number] MADISON ALBARRAN JR PATIENT Selected Encounter This section includes the information on record at [place] for the Encounter. Date/Time Encounter Type Encounter Description Reason Provider Source Oct 23, 2024 01:30 PM HEARING AID REPAIR/MODIFYIN G AUDIOLOGY ICD-10-CM Z46.1 Encounter for fitting and adjustment of hearing aid MELANI DAO [facility] Encounter Template Text not used by [place] Assessments - Encounter Diagnoses This section includes the primary and secondary diagnoses documented for the Encounter. Date/Time Primary/Secondary Diagnosis Diagnosis Name Provider Source Oct 23, 2024 02:17 PM PRIMARY Encounter for fitting and adjustment of hearing aid MELANI DAO [facility] Oct 23, 2024 02:17 PM SECONDARY Sensorineural hearing loss, bilateral MELANI Antwan [facility] Plan of Treatment: Future Appointments (+ 6 months) and Future Tests (+/- 45 days) The Plan of Treatment section includes future care activities for the patient from all [place] [facility]. This section includes future appointments and future orders which are active, pending or scheduled. Future Appointments This section includes appointments that were scheduled to occur 6 months from the date of the Encounter, up to a maximum of 20 appointments. The data comes from all [place] treatment facilities. Appointment Date/Time Appointment Type Appointme nt Facility Name Nov 18, 2024 08:30 AM AMBULATORY - REHAB MEDICIN E [facility] Dec 16, 2024 10:00 AM AMBULATORY - REHAB MEDICIN E [facility] Encounter Notes: All associated encounter notes This section contains the clinical notes associated to the Encounter. Date/Time Encounter Note(s) Provider Source Oct 23, 2024 09:54 AM AUDIOLOGY E [facility] T[facility]Y CLINIC STANDARD TITLE: AUDIOLOGY E & M NOTE DATE OF NOTE: OCT 23, 2024@09:54 ENTRY DATE: OCT 23, 2024@09:54:49 AUTHOR: MELANI DAO EXP COSIGNER: URGENCY: STATUS: COMPLETED Dx CODE: Z46.1-Encounter for Fitting/Adjusting Hearing Aid(s); H90.3- Sensorineural Hearing Loss, Bilateral APPOINTMENT TYPE: Hearing Aid Check HISTORY/BACKGROUND: was seen for a hearing aid follow-up [...] Listening check confirmed weak sound quality. Changed photonics engineering technologist, but still weak. Debris was vacuumed from the microphones - listening check was then positive once debris was cleared from the mics. Yolyn reported a significant improvement in sound quality. [...] RE Not Applicable NA /miroslava/ NOLAN DANIELLE, [facility] STAFF NITROGLYCERIN SEPARATOR OPERATOR Signed: 10/23/2024 14:17 MELANI DAO [place] [facility]
--- OUTSIDE RECORDS SUMMARY | 2025-01-28 14:05 | XMS_ITS | Encounter Summary ---
Author Organization [facility], Address [address] [place] [address] Phone Care Team Providers Care Forest Ranger Technician Name Role Phone Yrn Lombardo MD Primary Care Provider Tito daniel Encounter Details Date Type Department Care Team (Late st Contact Info) Description 06/10/2023 Documentation Only [facility], [address] [place] [phone] Antonette Varghese [address] [place] [phone] Social History Tobacco Use Types Packs/Day Years [...] on filedocumented in this encounter Care Teams Forest Ranger Technician Relationship Specialty Start Date End Date Yrn Lombardo MD PCP - General Internal Medicine 02/19/23 documented as of this encounter
--- OUTSIDE RECORDS SUMMARY | 2025-01-28 14:05 | XMS_ITS | Clinical Summary ---
Author Organization [facility], Address [address] [place] [address] [place] [address] Phone Care Team Providers Care Rn Registry Name Role Phone Yrn Lombardo MD Primary [...] Due Date Last Done Comments Pneumococcal Vaccine: 50+ Ye ars (1 of 2 - PCV) 1963 Colorectal Cancer Screening: Annual FOBT 2006 Colorectal Cancer Screening: Colonoscopy 2006 Colorectal Cancer Screening: Sigmoidoscopy 2006 Influenza Vaccine (Season Ended) 2025 Hepatitis B Vaccine Aged Out No longe r eligible based on patient's age to complete this topic Insurance Medicare [facility] Care Teams Rn Registry Relationship Specialty Start Date End Date Yrn Lombardo MD PCP - General Internal Medicine 02/19/23
--- OUTSIDE RECORDS SUMMARY | 2025-01-28 14:05 | XMS_ITS ---
Author Name [facility] ([place]) Organization [facility] ([place]) Address [address] [place] [address] Support Name Relationship Address Phone DEXTER ALBARRAN Next of Kin [address] [place] [address] [phone] Insurance Providers: All historical and current Section [...] MITARYN PATHF MIHA[place] REG Nov 21, 2022 [id number] [phone] MADISON ALBARRAN JR PATIENT [facility] CE ORGANIZ [facility] SHARE ACTIV E Oct 21, 2007 [id number] MADISON ALBARRAN JR PATIENT [employer] ([id number]) PRESCRIPT ION L4TA* Aug 21, 2008 TA [id number] MADISON ALBARRAN JR PATIENT MEDICARE ([facility] MEDICARE (M) PART A Nov 21, 2022 PART A [id number] MARYSE ALBARRAN PATIENT MEDICARE ([facility] MEDICARE (M) PART B Nov 21, 2022 PART B [id number] MADISON ALBARRAN JR PATIENT Selected Encounter This section includes the information on record at [place] for the Encounter. Date/Time Encounter Type Encounter Description Reason Provider Source Nov 18, 2024 08:30 AM HEARING AID REPAIR/MODIFYIN G AUDIOLOGY ICD-10-CM Z46.1 Encounter for fitting and adjustment of hearing aid RUDDYNORA ALSTON [place] Encounter Template Text not used by [place] Assessments - Encounter Diagnoses This section includes the primary and secondary diagnoses documented for the Encounter. 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 Nov 18, 2024 08:46 AM SECONDARY Snsrnrl hear loss, uni, r ear, with rstrcd hear cntra side TAHIRA FOXBERLY GAMALIEL [facility] Plan of Treatment: Future Appointments (+ 6 months) and Future Tests (+/- 45 days) The Plan of Treatment section includes future care activities for the patient from all [place] treatmentfacilities. This section includes future appointments and future orders which are active, pending or scheduled. Future Appointments This section includes appointments that were scheduled to occur 6 months from the date of the Encounter, up to a maximum of 20 appointments. The data comes from all [place] treatment facilities. Appointment Date/Time Appointment Type Appointme nt Facility Name Dec 16, 2024 10:00 AM AMBULATORY - [facility] Encounter Notes: All associated encounter notes [...] He is a previous user of a [employer] Edge AI ITE and wants to return [...] Applicable NA * /miroslava/ NORA FOX STAFF DIRECTOR OF MOBILE MARKETING Signed: 11/18/2024 08:46 Receipt Acknowledged By: 11/18/2024 09:09 /miroslava/ CHASIDY TENORIO LEAD INSPECTOR TOOL 11/26/2024 ADDENDUM STATUS: COMPLETED Hearing aid received and certified, upcoming appointment scheduled on 12/16/2024. /miroslava/ MARCELA [facility] Silver Miner Blasting Signed: 11/26/2024 08:14 NORA FOXRL [facility]
== END 2025-01-28 11:54 | disposition home or self-care (01) ==
LOC: HO.HOS 11:33
PROVIDERS: PCP Family Medicine; Visit Provider Orthopaedic Surgery
DX: M25.561 Pain in right knee (principal)
CPT/HCPCS: 99024

== ENCOUNTER → 2025-01-28 11:32 | Outpatient (BNVA) | payer MEDICARE, SELFPAY | PROVIDERS: PCP Family Medicine; Visit Provider Orthopaedic Surgery | DX: M25.561 Pain in right knee (principal); Z09 Encounter for follow-up examination after completed treatment for conditions other than malignant neoplasm; Z87.39 Personal history of other diseases of the musculoskeletal system and connective tissue; Z98.890 Other specified postprocedural states | CPT/HCPCS: 99212 ==

== ENCOUNTER 2025-02-22 12:01 | Outpatient (REF) | payer MEDICARE, SELFPAY ==
--- OUTSIDE RECORDS SUMMARY | 2025-02-22 13:39 | XMS_ITS ---
Author Name [facility] ([place]) Organization [facility] ([place]) Address [address] [place] [phone] Support Name Relationship Address Phone DEXTER ALBARRAN Next of Kin [address] [place] [address] [phone] Insurance Providers: All historical and current Section [...] MITARYN PATHF [place]HA[place] REG Nov 21, 2022 [id number] MADISON ALBARRAN JR PATIENT [facility] CE ORGANIZ [facility] SHARE ACTIV E Oct 21, 2007 [id number] MADISON ALBARRAN JR PATIENT [employer] S[employer]IP[employer] ([id number]) PRESCRIPT ION L4TA* Aug 21, 2008 TA [id number] MADISON ALBARRAN JR PATIENT MEDICARE ([facility]) MEDICARE (M) PART A Nov 21, 2022 PART A [id number] MARYSE ALBARRAN PATIENT MEDICARE ([facility]) MEDICARE (M) PART B Nov 21, 2022 PART B [id number] MADISON ALBARRAN JR PATIENT Selected Encounter This section includes the information on record at [place] for the Encounter. Date/Time Encounter Type Encounter Description Reason Provider Source Oct 23, 2024 01:30 PM HEARING AID REPAIR/MODIFYIN G AUDIOLOGY ICD-10-CM Z46.1 Encounter for fitting and adjustment of hearing aid MELANI DAO [facility] Encounter Template Text not used by [place] Assessments - Encounter Diagnoses This section includes the primary and secondary diagnoses documented for the Encounter. Date/Time Primary/Secondary Diagnosis Diagnosis Name Provider Source Oct 23, 2024 02:17 PM PRIMARY Encounter for fitting and adjustment of hearing aid MELANI DAO [facility] Oct 23, 2024 02:17 PM SECONDARY Sensorineural hearing loss, bilateral MELANI Antwan [facility] Plan of Treatment: Future Appointments (+ 6 months) and Future Tests (+/- 45 days) The Plan of Treatment section includes future care activities for the patient from all [place] [facility]. This section includes future appointments and future orders which are active, pending or scheduled. Future Appointments This section includes appointments that were scheduled to occur 6 months from the date of the Encounter, up to a maximum of 20 appointments. The data comes from all [place] treatment facilities. Appointment Date/Time Appointment Type Appointme nt Facility Name Nov 18, 2024 08:30 AM AMBULATORY - REHAB MEDICIN E [facility] Dec 16, 2024 10:00 AM AMBULATORY - REHAB MEDICIN E [facility] Encounter Notes: All associated encounter notes This section contains the clinical notes associated to the Encounter. Date/Time Encounter Note(s) Provider Source Oct 23, 2024 09:54 AM AUDIOLOGY E & M NO TE: [facility] TITLE: AUDIOLOGY CLINIC STANDARD TITLE: AUDIOLOGY E & M NOTE DATE OF NOTE: OCT 23, 2024@09:54 ENTRY DATE: OCT 23, 2024@09:54:49 AUTHOR: MELANI DAO EXP COSIGNER: URGENCY: STATUS: COMPLETED Dx CODE: Z46.1-Encounter for Fitting/Adjusting Hearing Aid(s); H90.3- Sensorineural Hearing Loss, Bilateral APPOINTMENT TYPE: Hearing Aid Check HISTORY/BACKGROUND: [place] was seen for a hearing aid follow-up [...] Listening check confirmed weak sound quality. Changed vice president of talent management, but still weak. Debris was vacuumed from the microphones - listening check was then positive once debris was cleared from the mics. [place] reported a significant improvement in sound quality. [...] RE Not Applicable NA /miroslava/ NOLAN DANIELLE, [facility] STAFF PLASTER FOREMAN Signed: 10/23/2024 14:17 MELANI DAO [place] [facility]
--- OUTSIDE RECORDS SUMMARY | 2025-02-22 13:39 | XMS_ITS ---
Author Name [facility] ([place]) Organization [facility] [place] Address [address] [place] [phone] Support Name Relationship Address Phone DEXTER ALBARRAN Next of Kin [address] [place] [address] [phone] Insurance Providers: All historical and current Section [...] MITARYN PATHF [place]HA[place] REG Nov 21, 2022 [id number] MADISON ALBARRAN JR PATIENT [facility] CE ORGANIZ [facility] SHARE ACTIV E Oct 21, 2007 [id number] [phone] MADISON ALBARRAN JR N PATIENT [employer] ([id number]) PRESCRIPT ION L4TA* Aug 21, 2008 [id number] MADISON ALBARRAN JR PATIENT MEDICARE (WNR) MEDICARE (M) PART A Nov 21, 2022 PART A [id number] MARYSE ALBARRAN PATIENT MEDICARE (WNR) MEDICARE (M) PART B Nov 21, 2022 PART B [id number] MADISON ALBARRAN JR PATIENT Selected Encounter This section includes the information on record at [place] for the Encounter. Date/Time Encounter Type Encounter Description Reason Provider Source Dec 16, 2024 10:00 AM CONFORMITY EVALUATION AUDIOLOGY ICD-10-CM Z46.1 Encounter for fitting and adjustment of hearing aid NORA FOX [place] Encounter Template Text not used by [place] Assessments - Encounter Diagnoses This section includes the primary and secondary diagnoses documented for the Encounter. Date/Time Primary/Secondary Diagnosis Diagnosis Name Provider Source Dec 16, 2024 10:40 AM PRIMARY Encounter for fitting and adjustment of hearing aid CHARLY FOX [facility] Dec 16, 2024 10:40 AM SECONDARY Sensorineural hearing loss, bilateral CHARLY FOX [facility] Encounter Notes: All associated encounter [...] Does the patient have any cultural and baptism beliefs, emotional barriers, physical or cognitive limitations, and communication barriers which may impact his ability to learn? No Desire and motivation to learn? Good OBJECTIVE (O): Physical fit of hearing aid was good. Patient verified comfort. Verification of an appropriate acoustic response was obtained using Real Ear measurements (speech mapping) and NAL-NL2 targets. The patient reported good subjective benefit as well. Feedback configuration management manager was run. Hearing aid was found to be meeting targets adequately and MPO was not exceeding estimated UCL. Settings stored in CAROLYNN. ASSESSMENT (A): The following devices were issued: Make: Guru Model: Edge AI ITC Rechargeable Left Serial Number: [id number] Battery size: RECHARGEABLE Warranty ends: 12/20/27 Trial [...] patient was informed of and signed/agreed to [place] policy on hearing aid issuance: Yes Users are responsible for the maintenance and security of their devices. Determination of need to replace a hearing aid is made by the [place] convolute tube winder. Hearing aids will not be replaced in [...] Not Applicable NA /miroslava/ NORA FOX STAFF STAFF REPORTER Signed: 12/16/2024 10:40 NORA FOX [facility] [place] [place] [facility]
--- OUTSIDE RECORDS SUMMARY | 2025-02-22 13:39 | XMS_ITS | Encounter Summary ---
Author Organization [facility], Address [address] [place] [address] Phone Care Team Providers Care Md Pediatric Allergist Name Role Phone Yrn Lombardo MD Primary Care Provider Tito daniel Encounter Details Date Type Department Care Team (Late st Contact Info) Description 06/10/2023 Documentation Only [facility], [address] [place] [phone] Antonette Varghese [address] [place] [address] [phone] Social History Tobacco Use Types Packs/Day Years [...] on filedocumented in this encounter Care Teams Md Pediatric Allergist Relationship Specialty Start Date End Date Yrn Lombardo MD PCP - General Internal Medicine 02/19/23 documented as of this encounter
--- OUTSIDE RECORDS SUMMARY | 2025-02-22 13:39 | XMS_ITS | Continuity of Care Document ---
Author Name [facility] Organization [facility] Care Team Providers Care Vocational Education Professional Name Role Phone [facility] Unavailable Unavailable Problems Combined list of problems from Department of Defense and Veterans [facility] facilities. It does not include entries that were removed or entered in error. 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 Immunization Series Date Given Administered By Site Reaction Lot Number CVX Code Drug Shower Attendant Status Comments Source COVID-19 ([employer]), MRNA, LNP-S, PF, 30 MCG/0.3 ML DOSE 2 2020 208 complet ed PFR; [id number]; [facility] COVID-19 ([employer]), MRNA, LNP-S, PF, 30 MCG/0.3 ML DOSE 1 2020 208 complet ed PFR; [id number]; [facility] Encounters Combined list of: 1) Encounters from Department of Veterans Affairs facilities going backup to the last 18 months, not all [place] inpatient encounters are included; 2) Encounters from the Department of Defense facilities going backup to 280 months. Location Location Details Encounter Type Encounter Number Reason For Visit Attending Provider ADM Date DC Date Status Disposition Source [facility] [facility] HEARING AID FITTING/CH ECKING [id number] Diagnos is: ICD-10- CM H90.A32 Mix cndct/s nrl hear loss,un i,l ear w rstrcd hear cntra side SENIOR,AGUSTINA BUSBY L 08[facility]13 [facility] [place] [facility] CONFORMITY EVALUATION [id number] Diagnos is: ICD-10- CM Z46.1 Encount er for fitting and adjustm ent of hearing aid ,AGUSTINA BUSBY L 09/11 [facility] [place] HEARING AID REPAIR/MOD IFYING [id number] Diagnos is: ICD-10- CM Z46.1 Encount er for fitting and adjustm ent of hearing aid SENIOR,AGUSTINA BUSBY L 10/23 [facility] [place] [place] HEARING AID REPAIR/MOD IFYING [id number] Diagnos is: ICD-10- CM Z46.1 Encount er for fitting and adjustm ent of hearing aid BENNETT FOX 11/18 [facility] [place] CONFORMITY EVALUATION [id number] Diagnos is: ICD-10- CM Z46.1 Encount er for fitting and adjustm ent of hearing aid BENNETT FOX 12/16 [facility] [place]
--- OUTSIDE RECORDS SUMMARY | 2025-02-22 13:39 | XMS_ITS | Encounter Summary ---
Author Name [facility] Organization [facility] ([place]) Address [address] [place] [address] Support Name Relationship Address Phone DEXTER ALBARRAN Next of Kin [address] [place] [address] [phone] Insurance Providers: All historical and current Section [...] MITARYN PATHF [place] REG Nov 21, 2022 [id number] [phone] MADISON ALBARRAN JR PATIENT [facility] CE ORGANIZ [facility] SHARE ACTIV E Oct 21, 2007 [id number] MADISON ALBARRAN JR PATIENT [employer] ([id number]) PRESCRIPT ION L4TA* Aug 21, 2008 TA [id number] MADISON ALBARRAN JR PATIENT MEDICARE ([facility]) MEDICARE (M) PART A Nov 21, 2022 PART A [id number] MARYSE ALBARRAN PATIENT MEDICARE ([facility]) MEDICARE (M) PART B Nov 21, 2022 PART B [id number] MADISON ALBARRAN JR PATIENT Selected Encounter This section includes the information on record at [place] for the Encounter. Date/Time Encounter Type Encounter Description Reason Provider Source Aug 13, 2024 09:00 AM HEARING AID FITTING/CHECKING AUDIOLOGY ICD-10-CM H90.A32 Mix cndct/snrl hear loss,uni,l ear w rstrcd hear cntra side MELANI DAO E Encounter Template Text not used by [place] Assessments - Encounter Diagnoses This section includes the primary and secondary diagnoses documented for the Encounter. Date/Time Primary/Secondary Diagnosis Diagnosis Name Provider Source Aug 13, 2024 05:19 PM PRIMARY Mix cndct/snrl hear loss,uni,l ear w rstrcd hear cntra side MELANI DAO [place] [facility] Aug 13, 2024 05:19 PM SECONDARY Snsrnrl hear loss, uni, r ear, with rstrcd hear cntra side MELANI DAO [place] [facility] [place] Aug 13, 2024 05:19 PM SECONDARY Tinnitus, bilateral MELANI DAO [place] [facility] [place] Plan of Treatment: Future Appointments (+ 6 months) and Future Tests (+/- 45 days) The Plan of Treatment section includes future care activities for the patient from all [place] [facility]. This section includes future appointments and future orders which are active, pending or scheduled. Future Appointments This section includes appointments that were scheduled to occur 6 months from the date of the Encounter, up to a maximum of 20 appointments. The data comes from all [place] treatment facilities. Appointment Date/Time Appointment Type Appointme nt Facility Name Sep 11, 2024 09:00 AM AMBULATORY - REHAB MEDICIN E [place] [facility] [place] [facility] Oct 23, 2024 01:30 PM AMBULATORY - REHAB MEDICIN E [place] [facility] [place] [facility] Nov 18, 2024 08:30 AM AMBULATORY - REHAB MEDICIN E [place] [facility] [place] [facility] Dec 16, 2024 10:00 AM AMBULATORY - REHAB MEDICIN E [place] [facility] [place] [facility] Encounter Notes: All associated encounter notes [...] Hearing Re-Evaluation and Hearing Aid Selection BACKGROUND/HISTORY: [place] was seen today for a hearing re-evaluation [...] his hearing has declined somewhat since then. 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 He received medical clearance for amplification for a left hearing aid from Dr. Mary Bae (aka Dr. Mary Landa, now of the [place]), [facility] on 09/20/16. reports bilateral tinnitus which is more pronounced [...] sloping to a moderate hearing loss from 3098-6001 Hz. Testing in the left ear revealed [...] SELECTION: Different hearing aid options were discussed. [place] notes that he preferred his older Resound [...] in RO with a size 2 HP wet mix operator and power dome. EDUCATION/COUNSELING: The patient was [...] Not Applicable NA Suicide Screen: C-SSRS Screening [place]-Suicide Severity Rating Scale (C-SSRS Screener) 1. Over [...] responses to other questions. /miroslava/ NOLAN DANIELLE, [facility]-A STAFF SECURITY SALES CONSULTANT Signed: 08/13/2024 17:20 Receipt Acknowledged By: 08/14/2024 07:44 /miroslava/ CHASIDY TENORIO LEAD TRAINING PERSONNEL SUPERVISOR 08/17/2024 ADDENDUM STATUS: COMPLETED Hearing aid received and certified, upcoming appointment scheduled on 09/11/2024. /miroslava/ MARCELA PECK [facility] Publications Sales Representative Signed: 08/17/2024 15:19 MELANI DAO [facility]
--- OUTSIDE RECORDS SUMMARY | 2025-02-22 13:39 | XMS_ITS ---
Author Name [facility] ([place]) Organization [facility] ([place]) Address [address] [place] [address] Support Name Relationship Address Phone DEXTER ALBARRAN Next of Kin [address] [place] [address] [phone] Insurance Providers: All historical and current Section [...] MITARYN PATHF [place] REG Nov 21, 2022 [id number] MADISON ALBARRAN JR PATIENT [facility] CE ORGANIZ [facility] SHARE ACTIV E Oct 21, 2007 [id number] MADISON ALBARRAN JR N PATIENT [employer] ([id number]) PRESCRIPT ION L4TA* Aug 21, 2008 [id number] MADISON ALBARRAN JR PATIENT MEDICARE (WNR) MEDICARE (M) PART A Nov 21, 2022 PART A [id number] MARYSE ALBARRAN PATIENT MEDICARE (R) MEDICARE (M) PART B Nov 21, 2022 PART B [id number] MADISON ALBARRAN JR PATIENT Selected Encounter This section includes the information on record at [place] for the Encounter. Date/Time Encounter Type Encounter Description Reason Provider Source Sep 11, 2024 09:00 AM CONFORMITY EVALUATION AUDIOLOGY ICD-10-CM Z46.1 Encounter for fitting and adjustment of hearing aid MELANI DAO Antwan [facility] Encounter Template Text not used by [place] Assessments - Encounter Diagnoses This section includes the primary and secondary diagnoses documented for the Encounter. 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 Sep 11, 2024 09:29 AM SECONDARY Snsrnrl hear loss, uni, r ear, with rstrcd hear cntra side MELANI DAO [place] [facility] [place] [facility] Sep 11, 2024 09:29 AM SECONDARY Tinnitus, bilateral MELANI Antwan [place] [facility] Plan of Treatment: Future Appointments (+ 6 months) and Future Tests (+/- 45 days) The Plan of Treatment section includes future care activities for the patient from all [place] [facility]. This section includes future appointments and [...] 01:30 PM AMBULATORY - REHAB MEDICIN E [place] [facility] [place] [facility] Nov 18, 2024 08:30 AM AMBULATORY - REHAB MEDICIN E [place] [facility] [place] [facility] Dec 16, 2024 10:00 AM AMBULATORY - REHAB MEDICIN E [place] [facility] [place] [facility] Encounter Notes: All associated encounter [...] Does the patient have any cultural and confucianism beliefs, emotional barriers, physical or cognitive limitations, and communication barriers which may impact his ability to learn? No Desire and motivation to learn? Good OBJECTIVE (O): Physical fit of hearing aids was good. Patient verified comfort. Verification of an appropriate acoustic response was obtained using Real Ear measurements (speech mapping) and NAL-NL2 targets. The patient reported good subjective benefit as well. Feedback systems software manager was run. Hearing aids were found to be meeting targets adequately and MPO was not exceeding estimated UCL. Settings stored in [facility]. ASSESSMENT (A): The following devices were issued: Make: GN RESOUND Model: NEXIA 60 MICRO NO-R Right Serial Number: NONE Left Serial Number: [id number] Battery size: Rechargeable Warranty ends: 09/13/27 Trial Period ends: 02/10/25 Domes/wax guards: GN Wax Filter, Large power dome [employer] Java Developer size/power: Size 2 HP Program(s): Automatic Button(s): Short press= Volume Up Long press= Volume Down Extra-long press= Power on/off Fitting Formula: NAL-NL2 Remote Programming: HAs are capable Bluetooth: [place] will pair on own Counseling was completed [...] patient was informed of and signed/agreed to [place] policy on hearing aid issuance: Yes Users are responsible for the maintenance and security of their devices. Determination of need to replace a hearing aid is made by the [place] airplane fueler. Hearing aids will not be replaced in [...] Not Applicable NA /NOLAN Sheriff, MARIELA-A STAFF PELLET PRESS OPERATOR Signed: 09/11/2024 09:30 09/11/2024 ADDENDUM STATUS: COMPLETED [place]'s 2020 Guru aid was sent for repair today due to excessive battery drain. The repaired device will be mailed back to his address on file via [employer]. /NOLAN Sheriff, MARIELA-A STAFF PELLET PRESS OPERATOR Signed: 09/11/2024 09:31 MELANI DAO [facility]
--- OUTSIDE RECORDS SUMMARY | 2025-02-22 13:39 | XMS_ITS | Encounter Summary ---
Author Organization [facility] Address [address] [place] [address] Phone Care Team Providers Care Vamp Marker Name Role Phone Yrn Lombardo MD Primary Care Provider Tito daniel Encounter Details Date Type Department Care Team (Late st Contact Info) Description 02/19/2023 Documentation Only [facility], [address] [place] [phone] Yrn Lombardo MD [address] [place] [address] Social History Tobacco Use Types Packs/Day Years [...] on filedocumented in this encounter Care Teams Vamp Marker Relationship Specialty Start Date End Date Yrn Lombardo MD PCP - General Internal Medicine 02/19/23 documented as of this encounter
--- OUTSIDE RECORDS SUMMARY | 2025-02-22 13:39 | XMS_ITS ---
Author Name [facility] Organization [facility] [place] Address [address] [place] [address] Support Name Relationship Address Phone DEXTER ALBARRAN Next of Kin [address] [place] [address] [phone] Insurance Providers: All historical and current Section [...] MITARYN PATHF [place] REG Nov 21, 2022 [id number] MADISON ALBARRAN JR PATIENT [facility] CE ORGANIZ [facility] SHARE ACTIV E Oct 21, 2007 [id number] [phone] MADISON ALBARRAN JR PATIENT [employer] SCRIP[employer] ([id number]) PRESCRIPT ION L4TA* Aug 21, 2008 TA [id number] MADISON ALBARRAN JR PATIENT MEDICARE ([facility]) MEDICARE (M) PART A Nov 21, 2022 PART A [id number] MARYSE ALBARRAN PATIENT MEDICARE ([facility]) MEDICARE (M) PART B Nov 21, 2022 PART B [id number] MADISON ALBARRAN JR PATIENT Selected Encounter This section includes the information on record at [place] for the Encounter. Date/Time Encounter Type Encounter Description Reason Provider Source Nov 18, 2024 08:30 AM HEARING AID REPAIR/MODIFYIN G AUDIOLOGY ICD-10-CM Z46.1 Encounter for fitting and adjustment of hearing aid RUDDYNORA ALSTON [place] Encounter Template Text not used by [place] Assessments - Encounter Diagnoses This section includes the primary and secondary diagnoses documented for the Encounter. 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 This section includes future appointments and future orders which are active, pending or scheduled. Future Appointments This section includes appointments that were scheduled to occur 6 months from the date of the Encounter, up to a maximum of 20 appointments. The data comes from all [place] treatment facilities. Appointment Date/Time Appointment Type Appointme nt Facility Name Dec 16, 2024 10:00 AM [facility] Encounter Notes: All associated encounter notes This [...] He is a previous user of a [employer] AI ITE and wants to return [...] Applicable NA * /miroslava/ NORA FOX STAFF GEOSCIENTIST Signed: 11/18/2024 08:46 Receipt Acknowledged By: 11/18/2024 09:09 /miroslava/ CHASIDY TENORIO LEAD COMPLETIONS MANAGER 11/26/2024 ADDENDUM STATUS: COMPLETED Hearing aid received and certified, upcoming appointment scheduled on 12/16/2024. /miroslava/ MARCELA PECK Audiology Health Waistband Setter Signed: 11/26/2024 08:14 NORA FOXRL [facility]
--- OUTSIDE RECORDS SUMMARY | 2025-02-22 13:39 | XMS_ITS | Encounter Summary ---
Author Organization [facility] [place], Address [address] [place] [address] Phone Care Team Providers Care Machine Tank Operator Name Role Phone Yrn Lombardo MD Primary Care Provider Tito daniel Encounter Details Date Type Department Care Team (Late st Contact Info) Description 04/24/2023 Documentation Only [facility], [address] [place] [phone] Antonette Varghese [address] [place] [phone] Social History Tobacco Use Types Packs/Day Years [...] on filedocumented in this encounter Care Teams Machine Tank Operator Relationship Specialty Start Date End Date Yrn Lmobardo MD PCP - General Internal Medicine 02/19/23 documented as of this encounter
--- OUTSIDE RECORDS SUMMARY | 2025-02-22 13:39 | XMS_ITS | Clinical Summary ---
Author Organization [facility] [place], Address [address] [place] [address] [place] [address] Phone Care Team Providers Care Welfare Visitor Name Role Phone Yrn Lombardo MD Primary [...] Ye ars (1 of 2 - PCV) 1976 Colorectal Cancer Screening: Annual FOBT 2006 Colorectal Cancer Screening: Colonoscopy 2006 Colorectal Cancer Screening: Sigmoidoscopy 2006 Influenza Vaccine (Season Ended) 2025 Hepatitis B Vaccine Aged Out No longe r eligible based on patient's age to complete this topic Insurance Medicare [facility] Care Teams Welfare Visitor Relationship Specialty Start Date End Date Yrn Lombardo MD PCP - General Internal Medicine 02/19/23
[2025-02-22 14:01] LABS: Anion Gap 12 (12-20); Blood Urea Nitrogen 16 mg/dL (9-16); Calcium 9.1 mg/dL (8.4-10.2); Carbon Dioxide 27 mmol/L (22-29); Chloride 105 mmol/L (96-108); Estimated Glomerular Filt Rate 59; Glucose Random 89 mg/dL (60-115); Potassium 4.4 mmol/L (3.3-5.1); Sodium 140 mmol/L (135-145)
== END 2025-02-22 12:02 | disposition home or self-care (01) ==
LOC: HO.HMGCLDS 12:01
PROVIDERS: PCP Family Medicine; Visit Provider Family Medicine
DX: Z00.00 Encounter for general adult medical examination without abnormal findings (principal); R79.89 Other specified abnormal findings of blood chemistry
CPT/HCPCS: 36415; 80048

== ENCOUNTER 2025-02-25 13:19 | Outpatient (AMB) | payer MEDICARE, SELFPAY ==
--- NOTE | 2025-02-25 13:24 | A.OFFPC_ITS ---
Vital Signs 02/25/25 13:28 Height 5 ft 9 in Weight 237 lb 4 oz BMI 35.0 BP 132/62 Blood Pressure Location Lt brachial Position Sitting Respiration 16 Pulse 66 Pulse Source Pulse Oximeter Temp 98.4 F Temp Source Oral Pulse Oximetry (%) 98 Oxygen Delivery Method Room Air Intake Visit Reasons: htn and lab review Intake Note: patient is scheduled for follow-up to review labs Allergies No Known Allergies Allergy (Verified 02/25/25 13:26) Medication List - Last Reconciled 02/25/25 by Hernan Remy MD amlodipine 10 mg PO DAILY 90 days carvedilol 12.5 mg PO BID 90 days cholecalciferol (vitamin D3) 50 mcg PO DAILY 90 days CPAP (CPAP Machine/Device) As directed hydralazine 50 mg PO TID 90 days lisinopril 40 mg PO DAILY 90 days lovastatin 20 mg PO DAILY 90 days Tobacco use date assessed: 02/25/25 Fall risk assessment: No Falls in past year Dental Screening Dental Screen Date: 02/25/25 Did you have a dental visit in the last 12 months?: Yes Did you have a dental problem in the last 6 months where you did not have access to dental care?: No Was dental information given to patient?: No HPI htn and lab review HPI Details 69 y/o male presents to f/u HTN, labs. Blood pressure today 132/62, 66p. He is on amlodipine 10mg, carvedilol 12.5mg b.i.d, hydralazine 50mg t.i.d, lisinopril 40mg daily. Labs drawn 02/22/25. Reviewed labs with pt. Creatinine 1.22 mg/dL. [facility] Medical History High cholesterol Hypertension Sinusitis Surgical History History of bilateral carpal tunnel release (~12/2018) History of left hip replacement (~04/2016) Hx of colonoscopy (~03/2023) Family History Father Hypertension High cholesterol Social History Household Members: Spouse Housing: House Are you a primary managed care coordinator to a significant other at home: No Do you presently have visiting nurse or other home services: No Patient Tobacco Use Status: Former Tobacco user Tobacco use type: Cigarette Years Smoked: 25 e-Cigarette/Vaping Use: Never Used Current occupational status: retired Cognitive needs: No Hearing needs: Yes (left hearing aid) Vision needs: Yes Questionnaire Thrive Questionnaire Date Thrive assessed: 11/13/24 I am a: Patient What is your living situation today?: I have a steady place to live Within the past 12 months, did the food you bought not last and you didn't have the money to get more?: Never true Within the past 12 months, did you worry whether your food would run out before you got money to buy more?: Never true Do you have trouble paying for medicines?: No Do you have trouble getting transportation to medical appointments?: No Do you have trouble paying your heating and electricity bill?: No Do you have trouble taking care of your child, family member or friend?: No Do you have trouble with day-to-day activities such as bathing, preparing meals, shopping, managing finances, etc.?: No Are you currently unemployed and looking for a job?: No Are you interested in more education?: No Please select the resources that you would like help with: None Currently or been in a relationship where the following occur: No concerns reported THRIVE Score: 0 ALMA DELIA-7 AMB Questionnaire ALMA DELIA-7 Date ALMA DELIA - 7 assessed: 01/02/24 Source: Developed by Drs. Jarrell Nichols, Aleah Aleman, Lane Maharaj and colleagues, with an educational yin from [employer]. Review of Systems Const Denies chills, Denies fatigue, Denies fever(s), Denies headache(s) and Denies weakness ENT Denies dizziness and Denies headache(s) Card Denies dyspnea Resp Denies cough, Denies dyspnea, Denies wheezing and Denies other (shortness of breath) Musc Denies numbness and Denies tingling Neuro Denies dizziness, Denies headache(s), Denies numbness, Denies tingling and Denies weakness Psych Denies anxiety and Denies depression Endo Denies fatigue Aller/Immun Denies wheezing Physical exam (Primary Care) Vital Signs: Last Vital Signs Temp 98.4 F 02/25/25 13:28 Pulse 66 02/25/25 13:28 Resp 16 02/25/25 13:28 BP 132/62 02/25/25 13:28 Pulse Ox 98 02/25/25 13:28 Oxygen Delivery Method Room Air 02/25/25 13:28 BMI result Body Mass Index 35.0 Tobacco/Smoking Status: Tobacco use Status Tobacco use date assessed 02/25/25 02/25/25 13:32 Patient Tobacco Use Status Former Tobacco user 02/25/25 13:25 Tobacco use type Cigarette 02/25/25 13:25 e-Cigarette/Vaping Use Never Used 02/25/25 13:25 Thrive Assessment: Date of Thrive Assessment Date Thrive assessed 11/13/24 02/25/25 13:25 Currently or been in a relationship where the following occur: No concerns reported Const General: well developed; No acute distress Nutritional Appearance: well nourished Orientation/consciousness: patient oriented x3 HENMT Head: Yes normocephalic and Yes atraumatic Eyes General: appearance normal, both eyes and all related structures Pupils: Equal, round and reactive pupils present EOM: EOMs intact bilaterally Resp Effort & Inspection: normal respiratory effort Neuro General: patient oriented x3 and gait normal Cranial nerves: Yes Equal, round and reactive pupils present Psych Affect: normal affect Coding Level of Care Code Est Pt Level 3 (99726) Diagnoses Hypertension I10 Elevated serum creatinine R79.89 Assessment & Plan Assessment & Plan (1) Hypertension: Code(s): I10 - Essential (primary) hypertension Category: Medical Plan: Blood?pressure?is?controlled.??Goal?is?less?than?140/90 Continue?current?medications (2) Elevated serum creatinine: Code(s): R79.89 - Other specified abnormal findings of blood chemistry Category: Medical Plan: This?resolved?after?stopping?hydrochlorothiazide Will?continue?to?monitor?kidney?function Orders: Orders Basic Metabolic Panel Today I10 - Essential (primary) hypertension, Z00.00 - Encounter for general adult medical examination without abnormal findings Microalbumin, Random (w Creat) Today I10 - Essential (primary) hypertension
[2025-02-25 13:28] VITALS: BP 132/62; PULSE 66; RESP 16; TEMP 36.9; O2SAT 98; BMI 35.0
--- OUTSIDE RECORDS SUMMARY | 2025-02-25 14:25 | XMS_ITS | Clinical Summary ---
Author Organization [facility], Address [address] [place] [address] [place] [address] Phone Care Team Providers Care Rerolling Machine Operator Name Role Phone Yrn Lombardo [...] age to complete this topic Insurance Medicare [facility] Care Teams Rerolling Machine Operator Relationship Specialty Start Date End Date Yrn Lombardo MD PCP - General Internal Medicine 02/19/23
--- OUTSIDE RECORDS SUMMARY | 2025-02-25 14:25 | XMS_ITS | Encounter Summary ---
Author Organization [facility] Address [address] [place] [address] Phone Care Team Providers Care Sap Portal Consultant Name Role Phone Yrn Lombardo MD Primary Care Provider Tito daniel Encounter Details Date Type Department Care Team (Late st Contact Info) Description 02/19/2023 Documentation Only [facility] [place], [address] [place] [phone] Yrn Lombardo MD [address] [place] [address] Social History Tobacco Use Types Packs/Day Years [...] on filedocumented in this encounter Care Teams Sap Portal Consultant Relationship Specialty Start Date End Date Yrn Lombardo MD PCP - General Internal Medicine 02/19/23 documented as of this encounter
--- OUTSIDE RECORDS SUMMARY | 2025-02-25 14:25 | XMS_ITS | Encounter Summary ---
Author Organization [facility] [place], Address [address] [place] [address] Phone Care Team Providers Care Coil Former Name Role Phone Yrn Lombardo MD Primary Care Provider Tito daniel Encounter Details Date Type Department Care Team (Late st Contact Info) Description 06/10/2023 Documentation Only [facility], [address] [place] [phone] Antonette Varghese [address] [place] [phone] Social History Tobacco Use Types Packs/Day Years [...] on filedocumented in this encounter Care Teams Coil Former Relationship Specialty Start Date End Date Yrn Lombardo MD PCP - General Internal Medicine 02/19/23 documented as of this encounter
--- OUTSIDE RECORDS SUMMARY | 2025-02-25 14:25 | XMS_ITS | Encounter Summary ---
Author Organization [facility], Address [address] [place] [address] Phone Care Team Providers Care Clothing Designer Name Role Phone Yrn Lombardo MD Primary Care Provider Tito daniel Encounter Details Date Type Department Care Team (Late st Contact Info) Description 04/24/2023 Documentation Only [facility], [address] [place] [phone] Antonette Varghese [address] [place] [phone] Social History Tobacco Use Types Packs/Day Years [...] on filedocumented in this encounter Care Teams Clothing Designer Relationship Specialty Start Date End Date Yrn Lombardo MD PCP - General Internal Medicine 02/19/23 documented as of this encounter
--- OUTSIDE RECORDS SUMMARY | 2025-02-25 14:25 | XMS_ITS | Continuity of Care Document ---
Author Name [facility] Organization [facility] Care Team Providers Care Claims Adjuster Name Role Phone [facility] Unavailable Unavailable Problems Combined list of problems from Department of Defense and [facility] facilities. It does not include entries that were removed or entered in error. 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 Immunization Series Date Given Administered By Site Reaction Lot Number CVX Code Drug Food Selector Status Comments Source COVID-19 ([employer] MRNA, LNP-S, PF, 30 MCG/0.3 ML DOSE 2 2020 208 complet ed PFR; [id number]; 1 [facility] COVID-19 ([employer] MRNA, LNP-S, PF, 30 MCG/0.3 ML DOSE 1 2020 208 complet ed PFR; [id number]; 1 [facility] [facility] Encounters Combined list of: 1) Encounters from Department of Veterans Affairs facilities going backup to the last 18 months, not all [place] inpatient encounters are included; 2) Encounters from the Department of Defense facilities going backup to 280 months. Location Location Details Encounter Type Encounter Number Reason For Visit Attending Provider ADM Date DC Date Status Disposition Source [facility] [facility] HEARING AID FITTING/CH ECKING [id number] Diagnos is: ICD-10- CM H90.A32 Mix cndct/s nrl hear loss,un i,l ear w rstrcd hear cntra side SENIOR,AGUSTINA BUSBY L 08/13 [facility] CONFORMITY EVALUATION [id number] Diagnos is: ICD-10- CM Z46.1 Encount er for fitting and adjustm ent of hearing aid ,AGUSTINA BUSBY L 09/11 [facility] HEARING AID REPAIR/MOD IFYING [id number] Diagnos is: ICD-10- CM Z46.1 Encount er for fitting and adjustm ent of hearing aid SENIOR,AGUSTINA BUSBY L 10/23 [facility] HEARING AID REPAIR/MOD IFYING [id number] Diagnos is: ICD-10- CM Z46.1 Encount er for fitting and adjustm ent of hearing aid BENNETT FOX 11/18 [facility] CONFORMITY EVALUATION [id number] Diagnos is: ICD-10- CM Z46.1 Encount er for fitting and adjustm ent of hearing aid BENNETT FOX 12/16 [facility]
== END 2025-02-25 13:50 | disposition home or self-care (01) ==
LOC: HO.HMCFM 13:21
PROVIDERS: PCP Family Medicine; Visit Provider Family Medicine
DX: I10 Essential (primary) hypertension (principal); R79.89 Other specified abnormal findings of blood chemistry

== ENCOUNTER → 2025-02-25 13:19 | Outpatient (BNVA) | payer MEDICARE, SELFPAY | PROVIDERS: PCP Family Medicine; Visit Provider Family Medicine | DX: I10 Essential (primary) hypertension (principal); R79.89 Other specified abnormal findings of blood chemistry | CPT/HCPCS: 99212 ==

== ENCOUNTER 2025-07-06 10:20 | Outpatient (REF) | payer MEDICARE, SELFPAY ==
--- OUTSIDE RECORDS SUMMARY | 2025-07-06 13:28 | XMS_ITS | Encounter Summary ---
Author Organization [facility], Address [address] [place] [address] Phone Care Team Providers Care Spindle Repairer Name Role Phone Yrn Lombardo MD Primary Care Provider Tito daniel Encounter Details Date Type Department Care Team (Late st Contact Info) Description 04/24/2023 Documentation Only [facility], [address] [place] [phone] Antonette Varghese [address] [place] [phone] Social History Tobacco Use Types Packs/Day Years [...] on filedocumented in this encounter Care Teams Spindle Repairer Relationship Specialty Start Date End Date Yrn Lombardo MD PCP - General Internal Medicine 02/19/23 documented as of this encounter
--- OUTSIDE RECORDS SUMMARY | 2025-07-06 13:28 | XMS_ITS | Encounter Summary ---
Author Organization [facility] Address [address] [place] [address] Phone Care Team Providers Care Fishing Floats Assembler Name Role Phone Yrn Lombardo MD Primary Care Provider Tito daniel Encounter Details Date Type Department Care Team (Late st Contact Info) Description 02/19/2023 Documentation Only [facility] [place], [address] [place] [phone] Yrn Lombardo MD [address] [place] [address] Social History Tobacco Use Types Packs/Day Years [...] on filedocumented in this encounter Care Teams Fishing Floats Assembler Relationship Specialty Start Date End Date Yrn Lombardo MD PCP - General Internal Medicine 02/19/23 documented as of this encounter
--- OUTSIDE RECORDS SUMMARY | 2025-07-06 13:28 | XMS_ITS | Encounter Summary ---
Author Organization [facility], Address [address] [place] [address] Phone Care Team Providers Care Nursing Program Coordinator Name Role Phone Yrn Lombardo MD Primary Care Provider Tito daniel Encounter Details Date Type Department Care Team (Late st Contact Info) Description 06/10/2023 Documentation Only [facility], [address] [place] [phone] Antonette Varghese [address] [place] [phone] Social History Tobacco Use Types Packs/Day Years [...] on filedocumented in this encounter Care Teams Nursing Program Coordinator Relationship Specialty Start Date End Date Yrn Lombardo MD PCP - General Internal Medicine 02/19/23 documented as of this encounter
--- OUTSIDE RECORDS SUMMARY | 2025-07-06 13:28 | XMS_ITS | Clinical Summary ---
Author Organization [facility] [place], Address [address] [place] [address] [place] [address] Phone Care Team Providers Care Machine Tool Mechanic Name Role Phone Yrn Lombardo MD Primary [...] Cancer Screening: Sigmoidoscopy 2006 Influenza Vaccine (#1) 2025 Hepatitis B Vaccine Aged Out No longe r eligible based on patient's age to complete this topic Insurance Medicare [facility] Care Teams Machine Tool Mechanic Relationship Specialty Start Date End Date Yrn Lombardo MD PCP - General Internal Medicine 02/19/23
[2025-07-06 14:10] LABS: Anion Gap 10 (12-20); Blood Urea Nitrogen 19 mg/dL (9-16); Calcium 9.4 mg/dL (8.4-10.2); Carbon Dioxide 29 mmol/L (22-29); Chloride 107 mmol/L (96-108); Estimated Glomerular Filt Rate 49; Potassium 4.6 mmol/L (3.3-5.1); Sodium 141 mmol/L (135-145)
[2025-07-06 14:34] LABS: Microalbum/Creatinine Ratio Ur 32.7 ug/mg cr (<30)
== END 2025-07-06 10:21 | disposition home or self-care (01) ==
LOC: HO.HMGCLDS 10:20
PROVIDERS: PCP Family Medicine; Visit Provider Family Medicine
DX: Z00.00 Encounter for general adult medical examination without abnormal findings (principal); I10 Essential (primary) hypertension
CPT/HCPCS: 36415; 80048; 82043; 82570

== ENCOUNTER 2025-07-13 09:39 | Outpatient (AMB) | payer MEDICARE, SELFPAY ==
--- NOTE | 2025-07-13 09:57 | A.OFFPC_ITS ---
Vital Signs 07/13/25 10:01 Height 5 ft 9 in Weight 233 lb 6 oz BMI 34.5 BP 130/68 Blood Pressure Location Rt brachial Position Sitting Respiration 16 Pulse 59 Pulse Source Pulse Oximeter Temp 98 F Temp Source Temporal Artery Scan Pulse Oximetry (%) 97 Oxygen Delivery Method Room Air Intake Visit Reasons: f/u HTN Intake Note: Mihai presents in the office today for hypertension. Allergies No Known Allergies Allergy (Verified 07/13/25 10:00) Medication List - Last Reconciled 07/13/25 by Hernan Remy MD amlodipine 10 mg PO DAILY 90 days carvedilol 1 tab (12.5mg) AM and 2 tabs (25mg) PM orally 2 times a day; 90 days cholecalciferol (vitamin D3) 50 mcg PO DAILY 90 days CPAP (CPAP Machine/Device) As directed hydralazine 50 mg PO TID 90 days lisinopril 30 mg (1.5 x 20 mg) PO DAILY 90 days lovastatin 20 mg PO DAILY 90 days Tobacco use date assessed: 07/13/25 Dental Screening Dental Screen Date: 07/13/25 Did you have a dental visit in the last 12 months?: Yes Did you have a dental problem in the last 6 months where you did not have access to dental care?: No Was dental information given to patient?: Patient has dentist HPI f/u HTN HPI Details 69 y/o male presents to f/u hypertension . BP today 130/68, 59p. He is on amlodipine 10mg, carvedilol 12.5mg b.i.d, lisinopril 40mg, hydralazine 50mg t.i.d. Hx of pre-diabetes. A1c today 5.5%. HPI Comments History of Present Illness Details Documentation assistance for Hernan Remy MD, was provided by Mat Walters,? Night Shift on 07/13/2025 at 10:25 AM EST. I, Dr. Remy, have read, observed, and verified documentation. [facility] Medical History High cholesterol Hypertension Sinusitis Surgical History History of bilateral carpal tunnel release (~12/2018) History of left hip replacement (~04/2016) Hx of colonoscopy (~03/2023) Family History Father Hypertension High cholesterol Social History (Updated 07/13/25 @ 10:01 by Saundra Varghese CMA) Household Members: Spouse Housing: House Are you a primary caretaker to a significant other at home: No Do you presently have visiting nurse or other home services: No Alcohol intake: current Alcohol intake frequency: holidays/special occasions only Patient Tobacco Use Status: Former Tobacco user Tobacco use type: Cigarette Years Smoked: 25 e-Cigarette/Vaping Use: Never Used Second Hand Smoke Exposure: No Use of substances other than those prescribed or required for medical reasons: No service: No Current occupational status: retired Current occupational exposures/hazards: No Cognitive needs: No Hearing needs: Yes (left hearing aid) Vision needs: Yes Questionnaire Thrive Questionnaire Date Thrive assessed: 11/13/24 I am a: Patient What is your living situation today?: I have a steady place to live Within the past 12 months, did the food you bought not last and you didn't have the money to get more?: Never true Within the past 12 months, did you worry whether your food would run out before you got money to buy more?: Never true Do you have trouble paying for medicines?: No Do you have trouble getting transportation to medical appointments?: No Do you have trouble paying your heating and electricity bill?: No Do you have trouble taking care of your child, family member or friend?: No Do you have trouble with day-to-day activities such as bathing, preparing meals, shopping, managing finances, etc.?: No Are you currently unemployed and looking for a job?: No Are you interested in more education?: No Please select the resources that you would like help with: None Currently or been in a relationship where the following occur: No concerns reported THRIVE Score: 0 ALMA DELIA-7 AMB Questionnaire ALMA DELIA-7 Date ALMA DELIA - 7 assessed: 01/02/24 Source: Developed by Drs. Jarrell Nichols, Aleah Aleman, Lane Maharaj and colleagues, with an educational yin from [employer]. Review of Systems Const Denies chills, Denies fatigue, Denies fever(s), Denies headache(s) and Denies weakness ENT Denies dizziness and Denies headache(s) Card Denies dyspnea Resp Denies cough, Denies dyspnea, Denies wheezing and Denies other (shortness of breath) Musc Denies numbness and Denies tingling Neuro Denies dizziness, Denies headache(s), Denies numbness, Denies tingling and Denies weakness Psych Denies anxiety and Denies depression Endo Denies fatigue Aller/Immun Denies wheezing Physical exam (Primary Care) Vital Signs: Last Vital Signs Temp 98 F 07/13/25 10:01 Pulse 59 07/13/25 10:01 Resp 16 07/13/25 10:01 BP 130/68 07/13/25 10:01 Pulse Ox 97 07/13/25 10:01 Oxygen Delivery Method Room Air 07/13/25 10:01 BMI result Body Mass Index 34.5 Tobacco/Smoking Status: Tobacco use Status Tobacco use date assessed 07/13/25 07/13/25 10:04 Patient Tobacco Use Status Former Tobacco user 07/13/25 10:01 Tobacco use type Cigarette 07/13/25 10:01 e-Cigarette/Vaping Use Never Used 07/13/25 10:01 Thrive Assessment: Date of Thrive Assessment Date Thrive assessed 11/13/24 07/13/25 09:59 Currently or been in a relationship where the following occur: No concerns reported Const General: well developed; No acute distress Nutritional Appearance: well nourished Orientation/consciousness: patient oriented x3 HENMT Head: Yes normocephalic and Yes atraumatic Eyes General: appearance normal, both eyes and all related structures Pupils: Equal, round and reactive pupils present EOM: EOMs intact bilaterally Resp Effort & Inspection: normal respiratory effort Auscultation: clear to auscultation bilaterally Cardio Rate: regular rate Rhythm: regular rhythm Heart sounds: S1 normal heart sound present, S2 normal heart sound present, no gallops, no murmurs and no rubs Neuro General: patient oriented x3 and gait normal Cranial nerves: Yes Equal, round and reactive pupils present Psych Affect: normal affect Results AMB Hemoglobin A1c AMB Hemoglobin A1c 5.5 % Last Edit by Saundra Varghese CMA on 07/13/25 10:13 Results Reviewed Results Reviewed: Laboratory Last Values Hgb A1c (Clinic) 5.5 % (4.0-6.0) 07/13/25 10:07 Coding Level of Care Code Est Pt Level 4 (98373) Diagnoses Hypertension I10 Pre-diabetes R73.03 Mild renal insufficiency N28.9 Assessment & Plan Assessment & Plan (1) Hypertension: Code(s): I10 - Essential (primary) hypertension Category: Medical Plan: Blood pressure is controlled however creatinine has risen again slightly and microalbumin is mildly elevated Increase hydration Continue work at good blood pressure control Decreasing lisinopril slightly from 40 mg to 30 mg daily Increasing carvedilol from 12.5 mg b.i.d. to 12.5 mg a.m. and 25 mg p.m. to compensate for decrease in lisinopril. He will continue hydralazine and amlodipine as prescribed Will recheck labs prior to next visit (2) Pre-diabetes: Code(s): R73.03 - Prediabetes Category: Medical Plan: A1c has improved from 5.6% to 5.5% Top normal range Continue working at a diet low in sugars and starches (3) Mild renal insufficiency: Code(s): N28.9 - Disorder of kidney and ureter, unspecified Category: Medical Plan: Stopped hydralazine due to bump in his creatinine Creatinine still mildly elevated in microalbumin mildly elevated. Will keep some lisinopril on board but decreasing slightly and changing carvedilol to compensate-see above Hydrate well and we will continue to monitor. Orders: Orders AMB Hemoglobin A1c Today R73.03 - Prediabetes Microalbumin, Random (w Creat) Today I10 - Essential (primary) hypertension, N28.9 - Disorder of kidney and ureter, unspecified Basic Metabolic Panel Today N28.9 - Disorder of kidney and ureter, unspecified, Z00.00 - Encounter for general adult medical examination without abnormal findings Medications: Changed From lisinopril 40 mg PO DAILY 90 days 90 tabs 3RF To lisinopril 30 mg (1.5 x 20 mg) PO DAILY 135 tabs 3RF 90 days From carvedilol 12.5 mg PO BID 90 days 180 tabs 3RF To carvedilol 1 tab (12.5mg) AM and 2 tabs (25mg) PM orally 2 times a day; 180 tabs 3RF 90 days
[2025-07-13 10:01] VITALS: BP 130/68; PULSE 59; RESP 16; TEMP 36.6; O2SAT 97; BMI 34.5
--- OUTSIDE RECORDS SUMMARY | 2025-07-13 11:29 | XMS_ITS | Encounter Summary ---
Author Organization [facility], Address [address] [place] [address] Phone Care Team Providers Care Customer Equipment Engineer Name Role Phone Yrn Lombardo MD Primary Care Provider Tito daniel Encounter Details Date Type Department Care Team (Late st Contact Info) Description 04/24/2023 Documentation Only [facility], [address] [place] [phone] Antonette Varghese [address] [place] [phone] Social History Tobacco Use Types Packs/Day Years [...] on filedocumented in this encounter Care Teams Customer Equipment Engineer Relationship Specialty Start Date End Date Yrn Lombardo MD PCP - General Internal Medicine 02/19/23 documented as of this encounter
--- OUTSIDE RECORDS SUMMARY | 2025-07-13 11:29 | XMS_ITS ---
Author Name Alycia Bernal Address Unknown Organization [place] Care Team Providers Care Portfolio Architect Name Role Phone Unavailable Primary Care Physician Unavailab le History Of Present Illness This is a 69 year old male who is an established patient who is being seen for an evaluation of skin lesions.Location: body throughoutDuration: yearsPertinent History: basal cell skin cancer and squamous cell skin cancer Pertinent Negatives: no family history of melanoma and no family history of non-melanoma skin cancerAdditional Visit Reasons: education and counseling about sun exposure, evaluation for suspicious growths, evaluation of current nevi, and surveillance against skin cancer recurrencesAdditional History: Patient notes dryness on the left side of the face. Medications Medication Generic Name RxNorm Strength Strength Unit Route Dose Dose Form Frequency Date Started Date Ended Status Indication Sig amlodipine 292451 10 mg Oral 1 table t qd active AmLODIPine Besylate amlodipi ne NULL oral 07/12/20 15 suspend ed carvedilol carvedil ol 063612 6.25 mg Oral table t suspend ed carvedilol carvedil ol 6.25 mg Oral table t suspend ed carvedilol 949264 12.5 mg Oral 1 table t bid active Claritin loratadi ne 613227 10 mg Oral 1 table t qd 07/12/20 15 active hydralazine hydralaz ine 982706 50 mg Oral 1 table t QD active lisinopril lisinopr il Oral suspend ed lisinopril 897134 40 mg Oral 1 table t qd active lovastatin lovastat in Oral suspend ed lovastatin 280247 20 mg Oral 1 table t qd active FLUARIX QUAD 2119-1158 SYRINGE NULL 08/05/20 15 active Lovastatin NULL 07/12/20 15 suspend ed Quinapril HCl NULL 07/12/20 15 suspend ed Problems Problem Code Type Status Date of Diagnosis Date of Resolution Actinic keratosis (disorder) 640946757( SNOMED) Diagnosis active 07/12/2025 History of malignant neoplasm of skin (situation) 451498848( SNOMED) Diagnosis active 07/12/2025 History of neoplasm (situation) 167024630( SNOMED) Diagnosis active 07/12/2025 Hemangioma of skin and subcutaneous tissue (disorder) 280200331( SNOMED) Diagnosis active 07/12/2025 Seborrheic keratosis (disorder) 509455738( SNOMED) Diagnosis active 07/12/2025 Disorder of pigmentation (disorder) 237512064( SNOMED) Diagnosis active 07/12/2025 Melanocytic nevus of trunk (disorder) 794342166( SNOMED) Diagnosis active 07/12/2025 Patient encounter status (finding) 524191755( SNOMED) Diagnosis active 07/12/2025 History of malignant neoplasm of skin (situation) 804314283( SNOMED) Diagnosis active 06/15/2024 History of neoplasm (situation) 555890210( SNOMED) Diagnosis active 06/15/2024 Actinic keratosis (disorder) ( SNOMED) Diagnosis active 06/15/2024 Basal cell carcinoma of truncal skin (disorder) 257349633( SNOMED) Diagnosis active 04/20/2024 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) 16794313(S NOMED) Diagnosis active 04/20/2024 Actinic keratosis (disorder) ( SNOMED) Diagnosis active 04/20/2024 Neoplasm of uncertain behavior of skin (disorder) 77320083(S NOMED) Diagnosis active 02/24/2024 Hemangioma of skin and subcutaneous tissue (disorder) 548081299( SNOMED) Diagnosis active 02/24/2024 Seborrheic keratosis (disorder) 614574907( SNOMED) Diagnosis active 02/24/2024 Actinic keratosis (disorder) ( SNOMED) Diagnosis active 02/24/2024 Disorder of pigmentation (disorder) 900975377( SNOMED) Diagnosis active 02/24/2024 Melanocytic nevus of trunk (disorder) 712144036( SNOMED) Diagnosis active 02/24/2024 Patient encounter status (finding) 158312885( SNOMED) Diagnosis active 02/24/2024 History of malignant neoplasm of skin (situation) 651291059( SNOMED) Diagnosis active 02/24/2024 Actinic keratosis (disorder) ( SNOMED) Diagnosis active 05/01/2023 Scar conditions and fibrosis of skin (disorder) 499025034( SNOMED) Diagnosis active 05/01/2023 Actinic keratosis (disorder) ( SNOMED) Diagnosis active 02/11/2023 Hemangioma of skin and subcutaneous tissue (disorder) 359017334( SNOMED) Diagnosis active 02/11/2023 Seborrheic keratosis (disorder) 917894163( SNOMED) Diagnosis active 02/11/2023 Disorder of pigmentation (disorder) 357853081( SNOMED) Diagnosis active 02/11/2023 Melanocytic nevus of trunk (disorder) 022314939( SNOMED) Diagnosis active 02/11/2023 Patient encounter status (finding) 791923899( SNOMED) Diagnosis active 02/11/2023 Neoplasm of uncertain behavior of skin (disorder) 91522742(S NOMED) Diagnosis active 02/11/2023 History of malignant neoplasm of skin (situation) 297919909( SNOMED) Diagnosis active 02/11/2023 Actinic keratosis (disorder) ( SNOMED) Diagnosis active 04/18/2022 Patient encounter status (finding) 378794947( SNOMED) Diagnosis active 04/18/2022 Actinic keratosis (disorder) ( SNOMED) Diagnosis active 01/31/2022 History of malignant neoplasm of skin (situation) 832283790( SNOMED) Diagnosis active 12/06/2021 Hemangioma of skin and subcutaneous tissue (disorder) 341713894( SNOMED) Diagnosis active 12/06/2021 Seborrheic keratosis (disorder) 232683445( SNOMED) Diagnosis active 12/06/2021 Disorder of pigmentation (disorder) 492547777( SNOMED) Diagnosis active 12/06/2021 Melanocytic nevus of trunk (disorder) 916318109( SNOMED) Diagnosis active 12/06/2021 Patient encounter status (finding) 703785398( SNOMED) Diagnosis active 12/06/2021 Actinic keratosis (disorder) ( SNOMED) Diagnosis active 12/06/2021 Actinic keratosis L57.0(ICD- 10) Diagnosis active 12/16/2020 Neoplasm of uncertain behavior of skin D48.5(ICD- 10) Diagnosis active 12/16/2020 Hemangioma of skin and subcutaneous tissue D18.01(ICD -10) Diagnosis active 11/04/2020 Other seborrheic keratosis L82.1(ICD- 10) Diagnosis active 11/04/2020 Other melanin hyperpigmentation L81.4(ICD- 10) Diagnosis active 11/04/2020 Melanocytic nevi of trunk D22.5(ICD- 10) Diagnosis active 11/04/2020 Personal history of other malignant neoplasm of skin Z85.828(IC D-10) Diagnosis active 11/04/2020 Actinic keratosis L57.0(ICD- 10) Diagnosis active 11/04/2020 Neoplasm of uncertain behavior of skin D48.5(ICD- 10) Diagnosis active 11/04/2020 Hemangioma of skin and subcutaneous tissue D18.01(ICD -10) Diagnosis active 09/29/2019 Other seborrheic keratosis L82.1(ICD- 10) Diagnosis active 09/29/2019 Other melanin hyperpigmentation L81.4(ICD- 10) Diagnosis active 09/29/2019 Melanocytic nevi of trunk D22.5(ICD- 10) Diagnosis active 09/29/2019 Personal history of other malignant neoplasm of skin Z85.828(IC D-10) Diagnosis active 09/29/2019 Other specified health status Z78.9(ICD- 10) Diagnosis active 11/11/2018 Basal cell carcinoma of truncal skin (disorder) 090726659( SNOMED) Diagnosis active 11/11/2018 Other specified health status Z78.9(ICD- 10) Diagnosis active 09/16/2018 Melanocytic nevus of trunk (disorder) 504745921( SNOMED) Diagnosis active 09/16/2018 Other specified health status Z78.9(ICD- 10) Diagnosis active 09/10/2017 Melanocytic nevus of trunk (disorder) 977746678( SNOMED) Diagnosis active 09/10/2017 Inflamed seborrheic keratosis (disorder) 663399474( SNOMED) Diagnosis active 01/22/2017 Melanocytic nevus of trunk (disorder) 673649828( SNOMED) Diagnosis active 07/24/2016 Neoplasm of uncertain behavior of skin (disorder) 63180811(S NOMED) Diagnosis active 02/07/2016 Surgical follow-up (finding) 144436821( SNOMED) Diagnosis active 09/13/2015 Basal cell carcinoma of face (disorder) 862809084( SNOMED) Diagnosis active 08/30/2015 Basal cell carcinoma of truncal skin (disorder) 211867546( SNOMED) Diagnosis active 08/16/2015 Basal cell carcinoma of face (disorder) 420492664( SNOMED) Diagnosis active 08/05/2015 Neoplasm of uncertain behavior of skin (disorder) 56430404(S NOMED) Diagnosis active 07/12/2015 Hypercholesterolemia (disorder) 46864298(S NOMED) Problem active Increased blood pressure (finding) 78340522(S NOMED) Problem active Hearing loss (disorder) 24983282(S NOMED) Problem active Actinic keratosis (disorder) 947365590( SNOMED) Problem active Basal cell carcinoma of skin (disorder) 442669210( SNOMED) Problem active Results No data Encounters Service provided at [address], [address], [place], [place] [id number]. Office phonenumber is [phone]. Office fax number is [phone]. Encounter Diagnosis Location Date / Time Type Actinic Keratoses (L57.0)His tory of Basal Cell Carcinoma (Z85.828)History of Squamous Cell Carcinoma in situ (Z86.007)Alexander Angiomas (D18.01)Seborrheic Keratoses (L82.1)Lentigines (L81.4)Benign Nevi (D22.5)Skin Education (Z71.89) [place] 07/12/2025 13:00:00 [place] [address] Reason For Referral No data Procedures Procedure Date Documentation of current medications (pr ocedure) 07/12/2025 12:00 am UTC Destruction of premalignant skin lesion (procedure) 07/12/2025 12:00 am UTC Tumor destruction (procedure) 04/20/2024 12:00 am UTC Destruction of premalignant skin lesion (procedure) 04/20/2024 12:00 am UTC Destruction of premalignant skin lesion (procedure) 02/24/2024 12:00 am UTC Shave biopsy (procedure) 02/24/2024 12:0 0 am UTC Cryotherapy of skin lesion with liquid n itrogen (procedure) 05/01/2023 12:00 am UTC Cryotherapy of skin lesion with liquid n itrogen (procedure) 02/11/2023 12:00 am UTC Cryotherapy of skin lesion with liquid n itrogen (procedure) 01/31/2022 12:00 am UTC Cryotherapy of skin lesion with liquid n itrogen (procedure) 12/06/2021 12:00 am UTC Cryotherapy of skin lesion with liquid n itrogen (procedure) 12/16/2020 12:00 am UTC Cryotherapy of skin lesion with liquid n itrogen (procedure) 11/04/2020 12:00 am UTC Documentation of past medical history (p rocedure) Documentation of past medical history (p rocedure) Total replacement of left hip joint (pro cedure) Total replacement of left hip joint (pro cedure) Documentation of past medical history (p rocedure) Total replacement of left hip joint (pro cedure) Documentation of past medical history (p rocedure) Total replacement of left hip joint (pro cedure) Documentation of past medical history (p rocedure) Total replacement of left hip joint (pro cedure) Total replacement of left hip joint (pro cedure) Total replacement of left hip joint (pro cedure) Total replacement of left hip joint (pro cedure) Total replacement of left hip joint (pro cedure) Total replacement of left hip joint (pro cedure) Total replacement of left hip joint (pro cedure) Documentation of past medical history (p rocedure) Documentation of past medica l history (procedure) Meniscus repair Total replacement of left hip joint (pro cedure) Review Of Systems Provider reviewed on Jul 12, 2025.A focused review of systems was performed including Hematologic /Lymphatic and Integumentary.No Problems With Healing, No Problems With Scarring (hypertrophic Or Keloid), And No Problems With Bleeding. Assessment 1.Actinic KeratosesCounselingLiquid Nitrogen: right episcopal; left cheek.2.History of Basal Cell CarcinomaCounseling3.History of Squamous Cell Carcinoma in situCounseling4.Alexander AngiomasCounseling5.Seborrheic KeratosesCounseling6.LentiginesCounseling7.Benign NeviCounseling8.Skin EducationSunscreen Recommendations Plan of Care Future visit for 07/12/2026 - Follow up in 1 year for: Skin Check - 15 minutes. Other Instructions:CSE in CSE slot. Other Instructions: CSE in CSE slot. Instructions * I counseled the patient regarding the following:Skin Care: Sun protective clothing and broad spectrum sunscreen can prevent the formation of Actinic Keratoses. AKs can resolve with cryotherapy, photodynamic therapy, imiquimod, topical 5-FU.Expectations: Actinic Keratoses are precancerous proliferations that occur within sun damaged skin. If untreated, a small subset of AKs can develop into Squamous Cell Carcinoma.I recommended the following: Broad Spectrum Sunscreen SPF 30+ * I counseled the patient regarding the following:Skin Care: Patients with a history of non-melanoma skin cancer should wear broad spectrum sunscreen and sun protective clothing.Expectations: Scars from excisional sites of non- melanoma skin cancers should be monitored for any recurrences.Contact Office if: If the patient notices discoloration or a bump arising from a previously stable scar or any new lesions that are not healing. * I counseled the patient regarding the following:Skin Care: Patients with a history of non-melanoma skin cancer should wear broad spectrum sunscreen and sun protective clothing.Expectations: Scars from excisional sites of non- melanoma skin cancers should be monitored for any recurrences.I recommended the following: Broad Spectrum Sunscreen SPF 30+ * I counseled the patient regarding the following:Expectations: Alexander Angiomas are benign vascular growths. No treatment is necessary. * I counseled the patient regarding the following:Skin Care: Seborrheic Keratoses are benign. No treatment is necessary.Expectations: Seborrheic Keratoses are benign warty growths. Patients get more ofthem as they age. * I counseled the patient regarding the following:Expectations: Lentigines are benign pigmented lesions that occur on sun-exposed and sun-damaged skin. * I counseled the patient regarding the following:Instructions: Monthly self- skin checks to monitor for any changes in moles are recommended.No treatment is necessary.Contact Office if: Any moles change in size, shape or color; itch, burn or bleed. Social History Code Activity Start Date End Date 7594341 (SNOMED) Former smoker Sex male Sexual orientation Unspecified Gender identity Unspecified Vital Signs No data
--- OUTSIDE RECORDS SUMMARY | 2025-07-13 11:29 | XMS_ITS | Encounter Summary ---
Author Organization [facility], Address [address] [place] [address] Phone Care Team Providers Care Electric Motors Salesperson Name Role Phone Yrn Lombardo MD Primary Care Provider Tito daniel Encounter Details Date Type Department Care Team (Late st Contact Info) Description 06/10/2023 Documentation Only [facility], [address] [place] [phone] Antonette Varghese [address] [place] [phone] Social History Tobacco Use Types Packs/Day Years [...] on filedocumented in this encounter Care Teams Electric Motors Salesperson Relationship Specialty Start Date End Date Yrn Lombardo MD PCP - General Internal Medicine 02/19/23 documented as of this encounter
--- OUTSIDE RECORDS SUMMARY | 2025-07-13 11:29 | XMS_ITS | Clinical Summary ---
Author Organization [facility], Address [address] [place] [address] [place] [address] Phone Care Team Providers Care Conveyor Weigher Operator Name Role Phone Yrn Lombardo MD [...] age to complete this topic Insurance Medicare [facility] Care Teams Conveyor Weigher Operator Relationship Specialty Start Date End Date Yrn Lombardo MD PCP - General Internal Medicine 02/19/23
--- OUTSIDE RECORDS SUMMARY | 2025-07-13 11:29 | XMS_ITS | Encounter Summary ---
Author Organization [facility] Address [address] [place] [address] Phone Care Team Providers Care Silo Operator Name Role Phone Yrn Lombardo MD Primary Care Provider Tito daniel Encounter Details Date Type Department Care Team (Late st Contact Info) Description 02/19/2023 Documentation Only [facility], [address] [place] [phone] Yrn Lombardo MD [address] [place] [address] Social History Tobacco Use Types Packs/Day Years [...] on filedocumented in this encounter Care Teams Silo Operator Relationship Specialty Start Date End Date Yrn Lombardo MD PCP - General Internal Medicine 02/19/23 documented as of this encounter
== END 2025-07-13 10:45 | disposition home or self-care (01) ==
LOC: HO.HMCFM 09:40
PROVIDERS: PCP Family Medicine; Visit Provider Family Medicine
DX: I10 Essential (primary) hypertension (principal); R73.03 Prediabetes; N28.9 Disorder of kidney and ureter, unspecified

== ENCOUNTER → 2025-07-13 09:39 | Outpatient (BNVA) | payer MEDICARE, SELFPAY | PROVIDERS: PCP Family Medicine; Visit Provider Family Medicine | DX: I10 Essential (primary) hypertension (principal); R73.03 Prediabetes; N28.9 Disorder of kidney and ureter, unspecified | CPT/HCPCS: 83036; 99212 ==

== ENCOUNTER 2025-09-07 09:28 | Outpatient (AMB) | payer MEDICARE, SELFPAY ==
[2025-09-07 09:33] VITALS: BP 128/60; PULSE 66; TEMP 36.7; O2SAT 99; BMI 35.0
--- NOTE | 2025-09-07 09:33 | AM.OFFWIN_ITS ---
Intake Vital Signs 09/07/25 09:33 Height 5 ft 9 in Weight 237 lb BMI 35.0 BP 128/60 Blood Pressure Location Lt brachial Position Sitting Pulse 66 Pulse Source Pulse Oximeter Temp 98.0 F Temp Source Oral Pulse Oximetry (%) 99 Oxygen Delivery Method Room Air Intake Visit Reasons: EP left knee pain behind calf as well Intake Note: pt presents with pain to left knee pain, upper calf and lower calf near ankle for a couple weeks. pt denies injury Patient Tobacco Use Status: Former Tobacco user Allergies No Known Allergies Allergy (Verified 09/07/25 09:36) Do you need a note to return to daycare/school/sports/work: No HPI HPI Comments History of Present Illness Details History of Present Illness - The patient is a 69-year-old male pres enting with left knee and calf pain. - The knee pain began a couple of weeks ago without a clear inciting event, though the patient suspects a possible unnoticed twist. - The pain is localized behind the left knee and extends to the lower calf, worse with palpation, with occasional pain into the ankle. - The patient has been taking ibuprofen intermittently for pain management without relief or improvement in the pain. - There is no history of swelling, redne ss, or skin discoloration in the affected leg. - The patient denies any recent long fli ghts, car rides, recent surgeries which left him bedridden for a long time, active cancer, or a personal or family history of blood clots. - The patient is not diabetic and does n ot smoke. [facility] Medical History High cholesterol Hypertension Sinusitis Surgical History History of bilateral carpal tunnel release (~12/2018) History of left hip replacement (~04/2016) Hx of colonoscopy (~03/2023) Family History Father Hypertension High cholesterol Social History (Updated 07/13/25 @ 10:01 by Saundra Varghese CMA) Household Members: Spouse Housing: House Are you a primary resident care manager rn to a significant other at home: No Do you presently have visiting nurse or other home services: No Alcohol intake: current Alcohol intake frequency: holidays/special occasions only Patient Tobacco Use Status: Former Tobacco user Tobacco use type: Cigarette Years Smoked: 25 e-Cigarette/Vaping Use: Never Used Second Hand Smoke Exposure: No service: No Current occupational status: retired Current occupational exposures/hazards: No Cognitive needs: No Hearing needs: Yes (left hearing aid) Vision needs: Yes Review of Systems Narrative Review of Systems - Musculoskeletal: Reports knee pain for a couple of weeks, denies swelling or redness. - Cardiovascular: Denies history of blood clots, recent long flights, or surgeries. - Endocrine: Denies diabetes. - General: Denies smoking. All systems reviewed and are unremarkable except as noted in HPI Physical Exam Exam Exam: Physical Exam General: Cooperative, healthy appearing, comfortable, no acute distress and well developed Orientation: Patient oriented x3 Limitations: No limitations Head: Normal to inspection Ears: Hearing grossly normal bilaterally Nose: Normal External nose present Face and sinus: Normal facial exam Eyes: Appearance normal, both eyes and all related structures Neck: Normal visual inspection and Yes full ROM Respiratory: Normal respiratory effort and able to speak in complete sentences. Skin: No rashes or lesions noted Neuro: Patient oriented x3, slightly limping gait Extremities: Left knee with slight edema, TTP posterior knee, positive homans, no skin changes, no ecchymosis or erythema, full ROM, negative patellar ballottement Vital Signs: Last Vital Signs Temp 98.0 F 09/07/25 09:33 Pulse 66 09/07/25 09:33 BP 128/60 09/07/25 09:33 Pulse Ox 99 09/07/25 09:33 Oxygen Delivery Method Room Air 09/07/25 09:33 BMI result Body Mass Index 35.0 Assessment & Plan Assessment & Plan (1) Left leg pain: Code(s): M79.605 - Pain in left leg (2) Pain of left calf: Code(s): M79.662 - Pain in left lower leg Plan Plan Patient was informed and verbally consented to the use of an ambient scribe for clinic note documentation during this visit. - With positive Homans, need to rule out Deep Vein Thrombosis (Dvt), Wells Score 1, moderate risk, 17% probability. - The ultrasound will be conducted, performed immediately. - Ortho referral sent for possible draining. Podiatry cannot drain as looks to be tibeal tuberosity. - US results US/US venous duplex LE LT IMPRESSION: No acute deep venous thrombosis interrogated veins, left lower extremity. Negative for DVT. 2 cm fluid collection, left upper calf. Orders: Orders US venous duplex LE LT Today M79.605 - Pain in left leg, M79.89 - Other speci fied soft tissue disorders Referrals Orthopedics Referral M79.662 - Pain in left lower leg Coding Level of Care Code Est Pt Level 4 (69969) Diagnoses Left leg pain M79.605 Pain of left calf M79.662
== END 2025-09-07 11:05 | disposition home or self-care (01) ==
PROVIDERS: PCP Family Medicine; Visit Provider Physician Assistant
DX: M79.605 Pain in left leg (principal); M79.662 Pain in left lower leg

== ENCOUNTER 2025-09-07 09:55 | Outpatient (REF) | payer MEDICARE, SELFPAY ==
--- NOTE | ~2025-09-07 | US_ITS ---
EXAMINATION: US TRIPLEX LOWER EXTREMITY, LEFT CLINICAL INFORMATION: Pain, left lower extremity COMPARISON: None available. TECHNIQUE: Color-flow triplex imaging with spectral analysis and compression Doppler were performed on the left lower extremity. FINDINGS: Respiratory variation, normal compression and augmented flow are demonstrated in the interrogated left common femoral vein, superficial femoral vein, profunda femoral vein, popliteal vein and midcalf peroneal and posterior tibial venous segments. There is a 2 x 2 cm anechoic abnormality without flow on color Doppler interrogation in the left upper calf. US/US venous duplex LE IMPRESSION: No acute deep venous thrombosis interrogated veins, left lower extremity. Negative for DVT. 2 cm fluid collection, left upper calf.. Electronically signed by: Martín Tellez MD 09/07/2025 10:27 AM ESTUARDO
== END 2025-09-07 09:56 | disposition home or self-care (01) ==
LOC: HO.HMGCX 09:55
PROVIDERS: PCP Family Medicine; Visit Provider Physician Assistant
DX: M79.662 Pain in left lower leg (principal); M25.562 Pain in left knee; M79.89 Other specified soft tissue disorders
CPT/HCPCS: 93971; 99212

== ENCOUNTER → 2025-09-07 09:58 | Outpatient (BNV) | payer MEDICARE, SELFPAY | PROVIDERS: PCP Family Medicine; Visit Provider Radiology Diagnostic Radiology | DX: M79.662 Pain in left lower leg (principal); M79.89 Other specified soft tissue disorders | CPT/HCPCS: 93971 ==

== ENCOUNTER 2025-10-06 10:40 | Outpatient (REF) | payer MEDICARE, SELFPAY ==
[2025-10-06 14:48] LABS: Anion Gap 12 (12-20); Blood Urea Nitrogen 17 mg/dL (9-16); Calcium 9.1 mg/dL (8.4-10.2); Carbon Dioxide 28 mmol/L (22-29); Chloride 106 mmol/L (96-108); Estimated Glomerular Filt Rate 46; Potassium 4.0 mmol/L (3.3-5.1); Sodium 142 mmol/L (135-145)
[2025-10-06 15:19] LABS: Microalbum/Creatinine Ratio Ur 47.3 ug/mg cr (<30)
== END 2025-10-06 10:41 | disposition home or self-care (01) ==
LOC: HO.HMGCLDS 10:40
PROVIDERS: Family Medicine; PCP Nurse Practitioner Family; Visit Provider Nurse Practitioner Family
DX: Z00.00 Encounter for general adult medical examination without abnormal findings (principal); N28.9 Disorder of kidney and ureter, unspecified; I10 Essential (primary) hypertension
CPT/HCPCS: 36415; 80048; 82043; 82570